=== PATIENT | female | born 1955 | race Caucasian/White ===

== ENCOUNTER 2019-06-22 22:36 | Emergency (ER) | payer MEDICAID, MEDICARE ==
[2019-06-22 22:42] VITALS: BP 165/111; PULSE 118
--- NOTE | 2019-06-23 01:12 | EDM.PDOCBH ---
ED HPI GENERAL MEDICAL PROBLEM - General Chief Complaint: Behavioral/Psych Stated Complaint: [facility] Time Seen by Provider: 06/23/19 01:11 - History of Present Illness INITIAL COMMENTS - FREE TEXT/NARRATIVE: 63-year-old female male brought in by EMS not feeling well. Patient was having chest tightness palpitations was sweaty and generally didn't feel good. Upon arrival to the emergency room she felt much better she was hypertensive and tachycardic with a pulse rate in the low 100s. At the time of my initial interview the patient denied any pain she did feel little anxious palpitations have resolved. Apparently she would not tolerate the monitoring equipment and demand it was taken off I did convince her to check her blood pressure again and put heart monitor on. - Related Data Allergies Allergy/AdvReac Type Severity Reaction Status Date / Time acetaminophen Allergy Cannot Verified 06/22/19 22:43 [From Tylenol-Codeine #3] Remember codeine Allergy Cannot Verified 06/22/19 22:43 [From Tylenol-Codeine #3] Remember morphine Allergy Other Verified 06/22/19 22:43 Home Meds: Home Meds Clonidine. 1 tab PO DAILY 09/01/16 [History] Cyclobenzaprine [Flexeril] 10 mg PO TID 09/01/16 [History] Disipromine. 1 tab PO DAILY 09/01/16 [History] Metformin. 1 tab PO BID 09/01/16 [History] Pregabalin [Lyrica] 1 tab PO BID 09/01/16 [History] Prozac. 1 tab PO DAILY 09/01/16 [History] ARIPiprazole [Abilify] 10 mg PO DAILY 06/22/19 [History] Alprazolam. 1 tab PO BEDTIME 06/22/19 [History] Potassium Chloride [Klor-Con 10] 10 meq PO Q12H #10 tab.er 06/23/19 [Rx] Past Medical History Respiratory History: Reports: COPD Musculoskeletal History: Reports: Fibromyalgia Psychiatric History: Reports: Anxiety, Depression, PTSD, Schizophrenia Endocrine/Metabolic History: Reports: Diabetes, Type II, Hypothyroidism Social & Family History - Tobacco Use Smoking Status *Q: Former Smoker Used Tobacco, but Quit: Yes Month/Year Tobacco Last Used: 2017 - Caffeine Use Caffeine Use: Reports: Coffee, Tea - Recreational Drug Use Recreational Drug Use: No ED ROS GENERAL - Review of Systems Review Of Systems: See Below Constitutional: Reports: No Symptoms HEENT: Reports: No Symptoms Respiratory: Reports: No Symptoms Cardiovascular: Reports: Chest Pain, Palpitations GI/Abdominal: Reports: No Symptoms : Reports: No Symptoms Musculoskeletal: Reports: No Symptoms Skin: Reports: No Symptoms Neurological: Reports: Other (Intermittent hand numbness). Denies: Confusion, Dizziness, Headache ED EXAM, BEHAVIORAL HEALTH - Physical Exam Exam: See Below Exam Limited By: No Limitations General Appearance: Alert, No Apparent Distress Eye Exam: Bilateral Eye: Normal Inspection Ears: Normal External Exam, Normal Canal, Hearing Grossly Normal, Normal TMs, Other (Him cerumen noted in the external canals) Nose: Normal Inspection, Normal Mucosa, No Blood Throat/Mouth: Normal Inspection, Normal Lips, Normal Teeth, Normal Gums, Normal Oropharynx, Normal Voice, No Airway Compromise Head: Atraumatic, Normocephalic Neck: Normal Inspection, Supple, Non-Tender, Full Range of Motion Respiratory/Chest: No Respiratory Distress, Lungs Clear, Normal Breath Sounds, No Accessory Muscle Use, Chest Non-Tender Cardiovascular: Normal Peripheral Pulses, Regular Rate, Rhythm, No Edema, No Gallop, No JVD, No Murmur, No Rub GI/Abdominal: Normal Bowel Sounds, Soft, Non-Tender, No Organomegaly, No Distention, No Abnormal Bruit, No Mass, Other (Obese) Back Exam: Normal Inspection. No: CVA Tenderness (L), CVA Tenderness (R) Neurological: Alert, Normal Cognition Psychiatric: Other (She is somewhat anxious). No: Suicidal Plan, Suicidal Thoughts, Auditory Hallucinations, Visual Hallucinations, Grandiose Thoughts, Pressured Speech Skin Exam: Warm, Dry, Intact COURSE, BEHAVIORAL HEALTH COMP - Course Vital Signs: Last Vital Signs Temp 36.2 C 06/22/19 22:40 Pulse 118 H 06/22/19 22:40 Resp 15 06/22/19 22:40 BP 165/111 H 06/22/19 22:40 Pulse Ox 91 L 06/22/19 22:40 Orders, Labs, Meds: Active Orders 24 hr Category Date Time Status EKG Documentation Completion [RC] STAT Care 06/23/19 01:29 Active MAGNESIUM [CHEM] Stat Lab 06/23/19 02:34 Ordered Laboratory Tests 06/23/19 06/23/19 Range/Units 01:50 01:50 WBC 5.91 (3.98-10.04) K/mm3 RBC 4.18 (3.98-5.22) M/mm3 Hgb 12.0 D (11.2-15.7) gm/dl Hct 37.5 (34.1-44.9) % MCV 89.7 (79.4-94.8) fl MCH 28.7 (25.6-32.2) pg MCHC 32.0 L (32.2-35.5) g/dl RDW Std Deviation 46.2 (36.4-46.3) fL Plt Count 142 L (182-369) K/mm3 MPV 11.0 (9.4-12.3) fl Neutrophils % (Manual) 75 H (40-60) % Band Neutrophils % 0 (0-10) % Lymphocytes % (Manual) 18 L (20-40) % Atypical Lymphs % 0 % Monocytes % (Manual) 5 (2-10) % Eosinophils % (Manual) 2 (0.7-5.8) % Basophils % (Manual) 0 L (0.1-1.2) Platelet Estimate Adequate Plt Morphology Comment Normal RBC Morph Comment Normal Sodium 141 (136-145) mEq/L Potassium 3.3 L (3.5-5.1) mEq/L Chloride 104 (98-107) mEq/L Carbon Dioxide 28 (21-32) mEq/L Anion Gap 12.3 (5-15) BUN 16 (7-18) mg/dL Creatinine 0.8 (0.55-1.02) mg/dL Est Cr Clr Drug Dosing 66.45 mL/min Estimated GFR (MDRD) > 60 (>60) mL/min BUN/Creatinine Ratio 20.0 H (14-18) Glucose 167 H (80-115) mg/dL Calcium 9.2 (8.5-10.1) mg/dL Total Bilirubin 0.4 (0.2-1.0) mg/dL AST 30 (15-37) U/L ALT 40 (14-59) U/L Alkaline Phosphatase 128 H (46-116) U/L Troponin I < 0.017 (0.00-0.056) ng/mL Total Protein 7.8 (6.4-8.2) g/dl Albumin 3.0 L (3.4-5.0) g/dl Globulin 4.8 gm/dL Albumin/Globulin Ratio 0.6 L (1-2) Medications Discontinued Medications Generic Name Dose Route Start Last Admin Trade Name Kenzie PRBenjamín Reason Stop Dose Admin Lorazepam 1 mg 06/23/19 02:35 Ativan PO 06/23/19 02:36 ONETIME ONE Medical Clearance: 06/23/19 03:00 I tried to get the patient to take some Ativan to calm her down and she agreed to it initially. Then I recommended she take some oral potassium as her potassium was somewhat low. Her blood sugar is high troponin still pending EKG shows a sinus tachycardia rate 103 and then she decided she didn't want to take the Ativan but would take potassium is still recommended she take the Ativan patient thought about it for a little bit and then she decided she just wanted to leave I discussed bryson with her that I'm worried about her fast heart rate and have no good explanation for her symptoms other than the anxiety that she has enough risk factors that some more ominous intentional medical problems should be excluded if possible and she still wanted to go home I did discharge her with a prescription for potassium she was willing to take that. Departure - Departure Time of Disposition: 02:44 Disposition: Against Medical Advice 07 Clinical Impression: Anxiety, Tachycardia, Hypokalemia - Discharge Information Prescriptions: Potassium Chloride [Klor-Con 10] 10 meq PO Q12H #10 tab.er Instructions: Generalized Anxiety Disorder, Adult, Hypokalemia, Sinus Tachycardia Referrals: PCP,None [Primary Care Provider] - Forms: ED Department Discharge Additional Instructions: Return to the emergency room with any questions problems worsening symptoms Follow-up with her regular provider early this next week you can go to the Hospital clinic [phone] - My Orders Last 24 Hours: My Active Orders 06/23/19 01:29 EKG Documentation Completion [RC] STAT 06/23/19 02:34 MAGNESIUM [CHEM] Stat - Assessment/Plan Last 24 Hours: My Active Orders 06/23/19 01:29 EKG Documentation Completion [RC] STAT 06/23/19 02:34 MAGNESIUM [CHEM] Stat
[2019-06-23] MEDS ORDERED: LORazepam 1 MG Tab PO ONE (02:35)
== END 2019-06-23 03:00 | disposition left against medical advice (07) ==
LOC: JD.ED 22:36
DX: F41.9 Anxiety disorder, unspecified (principal); R00.0 Tachycardia, unspecified; E87.6 Hypokalemia; J44.9 Chronic obstructive pulmonary disease, unspecified; E11.9 Type 2 diabetes mellitus without complications; F32.9 Major depressive disorder, single episode, unspecified; Z88.6 Allergy status to analgesic agent; Z88.5 Allergy status to narcotic agent; Z79.84 Long term (current) use of oral hypoglycemic drugs; Z87.891 Personal history of nicotine dependence; Z79.899 Other long term (current) drug therapy
CPT/HCPCS: 36415; 80053; 83735; 84484; 85007; 85027; 93005; 99284-25

== ENCOUNTER 2019-06-28 10:19 | Emergency (ER) | payer MEDICARE ==
[2019-06-28 11:23] VITALS: BP 151/104; PULSE 100
[2019-06-28] MEDS ORDERED: FLU Vacc QS2019-20(6MOS+)/PF 60 MCG/0.5 ML SYRINGE IM ONE (12:00)
--- NOTE | 2019-06-28 16:00 | CR ---
Chest: Two views of the chest are obtained. Comparison: Prior chest CT study of 09/01/16 is available. Findings: Heart size and mediastinum are normal. Lungs show minimal linear densities which is most likely due to subsegmental atelectasis. Lungs otherwise are clear. Minimal scoliosis is noted within the spine with slight scattered degenerative change. Impression: 1. Findings as described above which is believed to be incidental. 2. Nothing acute is suspected. Diagnostic code #2
--- NOTE | 2019-06-28 16:06 | EDM.PDOCBH ---
ED HPI GENERAL MEDICAL PROBLEM - General Chief Complaint: Behavioral/Psych Stated Complaint: LOW O2 CAUSING MENTAL IDEATIONS Time Seen by Provider: 06/28/19 11:09 Source of Information: Reports: Patient, Provider History Limitations: Reports: No Limitations - History of Present Illness INITIAL COMMENTS - FREE TEXT/NARRATIVE: The patient presents from [facility] for hallucinations and paranoia. She also had some shortness of breath. She recently moved here from [place]. She has a history of anxiety, depression, PTSD and schizophrenia. She is on clonidine, alprazolam, abilify, lyrican and prozac. A few months ago she was in [facility] for psychosis. Abilify was added to her medications. She currently is paranoid that someone is going to kill her. She fells like they are going to set fire to her apartment. She climbed out of her window and hurt her head last week. She is also hearing voices that are threatening and seeing people that are going to hurt her. She has trouble remembering to take her meds. She has a friend that is trying to help her. She went to [facility] to see if she can get some help and possibly get into a crisis bed. They had concerns about her medical problems. They could not take her because she is on insulin and they have no one to give it to her. The patient says she is short of breath at times. She has no chest pain, abdominal pain, nausea, vomiting, fever or chills. Onset: Gradual Duration: Week(s): Severity: Moderate Improves with: Reports: None Worsens with: Reports: None Associated Symptoms: Reports: No Other Symptoms - Related Data Allergies Allergy/AdvReac Type Severity Reaction Status Date / Time acetaminophen Allergy Cannot Verified 06/28/19 11:12 [From Tylenol-Codeine #3] Remember codeine Allergy Cannot Verified 06/28/19 11:12 [From Tylenol-Codeine #3] Remember morphine Allergy Headache Verified 06/28/19 11:12 Home Meds: Home Meds Clonidine. 0.1 mg PO BID 09/01/16 [History] Cyclobenzaprine [Flexeril] 10 mg PO TID 09/01/16 [History] Metformin. 1,000 mg PO BID 09/01/16 [History] Pregabalin [Lyrica] 300 mg PO BID 09/01/16 [History] Prozac. 80 mg PO DAILY 09/01/16 [History] ARIPiprazole [Abilify] 10 mg PO DAILY 06/22/19 [History] Alprazolam. 0.25 mg PO BID PRN 06/22/19 [History] Potassium Chloride [Klor-Con 10] 10 meq PO Q12H #10 tab.er 06/23/19 [Rx] Dulaglutide [Trulicity] 1.5 mg SQ TU 06/28/19 [History] Insulin Glarg,Human.Rec.Analog [Lantus Solostar] 30 unit SQ DAILY 06/28/19 [ History] Past Medical History HEENT History: Reports: Impaired Vision Other HEENT History: wears eyeglasses, has no teeth, frequent abscesses to "nubs " of teeth that are still in place. Cardiovascular History: Reports: High Cholesterol Respiratory History: Reports: COPD Genitourinary History: Reports: Pyelonephritis, Urinary Incontinence, UTI, Recurrent [employer] History: Reports: Musculoskeletal History: Reports: Fracture, Fibromyalgia Neurological History: Reports: Seizure Psychiatric History: Reports: Anxiety, Depression, PTSD, Schizophrenia Endocrine/Metabolic History: Reports: Diabetes, Type II, Hypothyroidism - Infectious Disease History Infectious Disease History: Reports: Chicken Pox, Measles, Mumps, Scarlet Fever - Past Surgical History GI Surgical History: Reports: Appendectomy, Cholecystectomy Musculoskeletal Surgical History: Reports: ORIF Social & Family History - Tobacco Use Smoking Status *Q: Former Smoker Used Tobacco, but Quit: Yes Month/Year Tobacco Last Used: Apr 2018 - Caffeine Use Caffeine Use: Reports: Coffee, Tea - Recreational Drug Use Recreational Drug Use: No ED ROS GENERAL - Review of Systems Review Of Systems: See Below Constitutional: Reports: No Symptoms HEENT: Reports: No Symptoms Respiratory: Reports: Shortness of Breath. Denies: Cough Cardiovascular: Reports: No Symptoms Endocrine: Reports: No Symptoms GI/Abdominal: Reports: No Symptoms : Reports: No Symptoms Musculoskeletal: Reports: No Symptoms Neurological: Reports: No Symptoms Psychiatric: Reports: Hallucinations ED EXAM, BEHAVIORAL HEALTH - Physical Exam Exam: See Below Exam Limited By: No Limitations General Appearance: Alert, No Apparent Distress Ears: Normal External Exam Nose: Normal Inspection Head: Atraumatic, Normocephalic Neck: Normal Inspection Respiratory/Chest: No Respiratory Distress, Lungs Clear, Normal Breath Sounds Cardiovascular: Regular Rate, Rhythm, No Edema, No Murmur GI/Abdominal: Soft, Non-Tender, No Organomegaly, No Mass Back Exam: Normal Inspection EKG INTERPRETATION EKG Date: 06/28/19 Time: 12:31 Rhythm: NSR Rate (Beats/Min): 94 [place]: Normal P-Wave: Present QRS: Normal ST-T: Normal QT: Normal COURSE, BEHAVIORAL HEALTH COMP - Course Vital Signs: Last Vital Signs Temp 97.8 F 06/28/19 11:05 Pulse 100 06/28/19 11:05 Resp 20 06/28/19 11:05 BP 151/104 H 06/28/19 11:05 Pulse Ox 96 06/28/19 11:05 Orders, Labs, Meds: Active Orders 24 hr Category Date Time Status Cardiac Monitoring [RC] . DIRECTED Care 06/28/19 12:10 Active EKG Documentation Completion [RC] STAT Care 06/28/19 12:10 Active Influenza Vaccine Charge [RC] .DISCHARGE Care 06/28/19 11:42 Active Laboratory Tests 06/28/19 06/28/19 06/28/19 Range/Units 12:28 12:28 13:30 WBC 5.13 (3.98-10.04) K/mm3 RBC 4.76 (3.98-5.22) M/mm3 Hgb 13.8 D (11.2-15.7) gm/dl Hct 42.0 (34.1-44.9) % MCV 88.2 (79.4-94.8) fl MCH 29.0 (25.6-32.2) pg MCHC 32.9 (32.2-35.5) g/dl RDW Std Deviation 47.4 H (36.4-46.3) fL Plt Count 193 (182-369) K/mm3 MPV 10.5 (9.4-12.3) fl Neut % (Auto) 62.2 (34.0-71.1) % Lymph % (Auto) 25.3 (19.3-51.7) % [place] % (Auto) 9.2 (4.7-12.5) % Eos % (Auto) 2.9 (0.7-5.8) Baso % (Auto) 0.4 (0.1-1.2) % Neut # (Auto) 3.19 (1.56-6.13) K/mm3 Lymph # (Auto) 1.30 (1.18-3.74) K/mm3 [place] # (Auto) 0.47 H (0.24-0.36) K/mm3 Eos # (Auto) 0.15 (0.04-0.36) K/mm3 Baso # (Auto) 0.02 (0.01-0.08) K/mm3 Sodium 144 (136-145) mEq/L Potassium 3.0 L (3.5-5.1) mEq/L Chloride 104 (98-107) mEq/L Carbon Dioxide 29 (21-32) mEq/L Anion Gap 14.0 (5-15) BUN 14 (7-18) mg/dL Creatinine 0.9 (0.55-1.02) mg/dL Est Cr Clr Drug Dosing 59.07 mL/min Estimated GFR (MDRD) > 60 (>60) mL/min BUN/Creatinine Ratio 15.6 (14-18) Glucose 130 H (80-115) mg/dL Calcium 9.5 (8.5-10.1) mg/dL Total Bilirubin 0.5 (0.2-1.0) mg/dL AST 31 (15-37) U/L ALT 45 (14-59) U/L Alkaline Phosphatase 112 (46-116) U/L Troponin I < 0.017 (0.00-0.056) ng/mL Total Protein 8.6 H (6.4-8.2) g/dl Albumin 3.4 (3.4-5.0) g/dl Globulin 5.2 gm/dL Albumin/Globulin Ratio 0.7 L (1-2) TSH 3rd Generation 2.792 (0.358-3.74) uIU/mL Urine Opiates Screen Negative (OFTUSX=618) Ur Buprenorphine Scrn Negative (CUTOFF=10) Ur Oxycodone Screen Presumptive positive H (PFJ1PH=675) Urine Methadone Screen Negative (QSVHBW=037) Ur Propoxyphene Screen Negative (LEEGAO=270) Ur Barbiturates Screen Negative (TBVLEU=773) Ur Tricyclics Screen Presumptive positive H (FNVCUZ=734) Ur Phencyclidine Scrn Negative (CUTOFF=25) Ur Amphetamine Screen Negative (VXJDYX=778) U Methamphetamines Scrn Negative (INEDGQ=859) U Benzodiazepines Scrn Presumptive positive H (JBIBYV=563) U Cocaine Metab Screen Negative (PNDSSN=674) U Marijuana (THC) Screen Negative (CUTOFF=50) Ethyl Alcohol 0.00 (0.00) gm% Medications Discontinued Medications Generic Name Dose Route Start Last Admin Trade Name Kenzie PRN Reason Stop Dose Admin Influenza Virus Vaccine 60 mcg 06/28/19 12:00 Fluzone Quad Syringe IM 06/28/19 12:01 .ONCE ONE Re-Assessment/Re-Exam: I ordered an EKG, CXR and labs. Her EKG shows a NSR with no acute changes. Her CXR looks good. Her CBC looks good. Her K was 3. Her troponin is negative. Her TSH is negative. Her drug screen is positive for oxycodone, tricyclics and benzos. Her alcohol is negative. I called [facility] and I feel she is medically clear but they will not take her. I had Basia our social services designee come talk to her and she agrees the patient may need some inpatient help. I have called [facility] and I am waiting for Dr Cooper to call me back. Dr Cooper did call me back and he accepted the patient. I will have the mine car dispatcher transfer. Departure - Departure Time of Disposition: 18:40 Disposition: DC/Tfer to Psych Hosp/Unit 65 Condition: Fair Clinical Impression: Hallucinations Schizophrenia Qualifiers: Schizophrenia type: other Qualified Code(s): F20.89 - Other schizophrenia; F20.8 - Other schizophrenia - Discharge Information Referrals: PCP,None [Primary Care Provider] - Forms: ED Department Discharge - My Orders Last 24 Hours: My Active Orders 06/28/19 11:42 Influenza Vaccine Charge [RC] .DISCHARGE 06/28/19 12:10 Cardiac Monitoring [RC] . DIRECTED EKG Documentation Completion [RC] STAT - Assessment/Plan Last 24 Hours: My Active Orders 06/28/19 11:42 Influenza Vaccine Charge [RC] .DISCHARGE 06/28/19 12:10 Cardiac Monitoring [RC] . DIRECTED EKG Documentation Completion [RC] STAT
== END 2019-06-28 19:50 ==
LOC: JD.ED 10:19
DX: F20.89 Other schizophrenia (principal); F32.9 Major depressive disorder, single episode, unspecified; E11.9 Type 2 diabetes mellitus without complications; J44.9 Chronic obstructive pulmonary disease, unspecified; G40.909 Epilepsy, unspecified, not intractable, without status epilepticus; Z79.4 Long term (current) use of insulin; Z88.6 Allergy status to analgesic agent; Z88.5 Allergy status to narcotic agent; Z79.899 Other long term (current) drug therapy
CPT/HCPCS: 36415; 71046; 80053; 80306; 84443; 84484; 85025; 90686; 93005; 99285; G0008; G0480; 93010; 99284

== ENCOUNTER 2019-09-10 11:49 | Inpatient (IN) | payer MEDICARE ==
--- NOTE | 2019-09-10 12:56 | EDM.PDOC ---
ED HPI GENERAL MEDICAL PROBLEM - General Chief Complaint: Gastrointestinal Problem Stated Complaint: [facility] Time Seen by Provider: 09/10/19 12:49 Source of Information: Reports: Patient History Limitations: Reports: No Limitations - History of Present Illness INITIAL COMMENTS - FREE TEXT/NARRATIVE: 64-year-old female who is a known type II diabetic presents to the ED generally feeling very poor for the last 10 days. She recently relocated to [facility] and has no primary care physician. Her sugars used to be controlled with Trulicity once weekly and using basal dose of insulin ( Lantus solostar) 30 units once daily daily and metformin 1000 mg twice a day. Since blood sugars at home have been running much higher than normal. She presents with severe polyuria and polydipsia. Weight herself and she is morbidly obese. She can barely walk or get to the bathroom even with the aid of her daughter who does most of her care. Shar she fell recently and has a mild contusion to her occipital scalp. She also complains that her right arm doesn't seem to work as well as it should. She doesn't walk without the aid of a walker. Complains of feeling very weak dizzy nauseated and can't eat. Onset: Gradual Onset Date: 09/05/19 (Has been sick apparently for a couple of months but worse the last week. In planning of diffuse abdominal pain) Duration: Week(s):, Getting Worse Location: Reports: Generalized (MRI sense of illness I suspect primarily due to uncontrolled type 2 diabetes.) Quality: Reports: Other (Nausea weakness causing falls at home.) Severity: Severe Improves with: Reports: None Worsens with: Reports: None Context: Reports: Other. Denies: Activity, Exercise, Lifting, Sick Contact, Trauma Associated Symptoms: Reports: Loss of Appetite, Malaise, Nausea/Vomiting, Shortness of Breath, Weakness (Severe generalized weakness and can barely walk on her own volition. She is also hypoxic on room air.). Denies: Confusion ( Artery is providing as much care she can for her at home but is failing at this time.), Chest Pain, Cough, cough w sputum, Diaphoresis, Fever/Chills, Headaches , Rash, Seizure, Syncope Treatments RELATIONS COORDINATOR: Reports: Other (see below) Left Abdominal Pain Score (Numeric/FACES): 10 - Related Data Allergies Allergy/AdvReac Type Severity Reaction Status Date / Time acetaminophen Allergy Cannot Verified 06/28/19 11:12 [From Tylenol-Codeine #3] Remember codeine Allergy Cannot Verified 06/28/19 11:12 [From Tylenol-Codeine #3] Remember morphine AdvReac Headache Verified 09/10/19 14:43 Home Meds: Home Meds Clonidine. 0.1 mg PO BID 09/01/16 [History] Cyclobenzaprine [Flexeril] 10 mg PO TID PRN 09/01/16 [History] Metformin. 1,000 mg PO BID 09/01/16 [History] Pregabalin [Lyrica] 300 mg PO BID 09/01/16 [History] Prozac. 80 mg PO DAILY 09/01/16 [History] ARIPiprazole [Abilify] 40 mg PO DAILY 06/22/19 [History] Alprazolam. 0.25 mg PO BID PRN 06/22/19 [History] Dulaglutide [Trulicity] 1.5 mg SQ TU 06/28/19 [History] Paliperidone [Paliperidone ER] 6 mg PO DAILY 09/10/19 [History] Rosuvastatin Calcium 20 mg PO BEDTIME 09/10/19 [History] hydrOXYzine HCL [hydrOXYzine] 50 mg PO BEDTIME 09/10/19 [History] Past Medical History HEENT History: Reports: Impaired Vision Other HEENT History: wears eyeglasses, has no teeth, frequent abscesses to "nubs " of teeth that are still in place. 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: Musculoskeletal History: Reports: Fracture, Fibromyalgia Neurological History: Reports: Seizure Psychiatric History: Reports: Anxiety, Depression, PTSD, Schizophrenia Endocrine/Metabolic History: Reports: Diabetes, Type II, Hypothyroidism - Infectious Disease History Infectious Disease History: Reports: Chicken Pox, Hepatitis C, Measles, Mumps, Scarlet Fever - Past Surgical History GI Surgical History: Reports: Appendectomy, Cholecystectomy Musculoskeletal Surgical History: Reports: ORIF Social & Family History - Tobacco Use Smoking Status *Q: Never Smoker Second Hand Smoke Exposure: No - Caffeine Use Caffeine Use: Reports: Coffee, Soda - Recreational Drug Use Recreational Drug Use: No - Living Situation & Occupation Living situation: Reports: Single Occupation: Disabled ED ROS GENERAL - Review of Systems Review Of Systems: See Below Constitutional: Reports: Malaise, Weakness, Fatigue, Decreased Appetite. Denies : Fever, Chills HEENT: Denies: Glasses Respiratory: Reports: Shortness of Breath. Denies: Wheezing, Pleuritic Chest Pain, Cough, Sputum Cardiovascular: Reports: Blood Pressure Problem, Dyspnea on Exertion, Edema, Lightheadedness. Denies: Chest Pain, Claudication, Orthopnea Endocrine: Reports: Fatigue, High Glucose GI/Abdominal: Reports: Decreased Appetite, Nausea, Vomiting (Vomited once bilious material last night) : Reports: Frequency, Incontinence (Continent of urine at times mostly stress- induced component of urgency.) Musculoskeletal: Reports: Joint Pain (Sips low back and neck and shoulders at times) Skin: Reports: Other (Patient has intertrigo primarily in the inguinal and lower abdomen under pannus. She also has perineal inflammation from inability to clean herself properly. His excoriations of the perineum and perianal tissues.) Neurological: Reports: Difficulty Walking (Use a walker to get along but can't walk), Change in Speech ( at this point time.), Other (Complains of difficulty walking and that her right arm is not working quite as well as it should. Of note she is right hand dominant.) Hematologic/Lymphatic: Reports: No Symptoms Immunologic: Reports: No Symptoms ED EXAM, GI/ABD - Physical Exam Exam: See Below Exam Limited By: Altered Mental Status ( is mildly confused and can't answer questions appropriately. She has a friend with her who is providing most of the history.) General Appearance: Mild Distress, Obese, Other (Confused. She is disoriented to person place and time.) Eyes: Bilateral: Normal Appearance Throat/Mouth: Other (Doesn't tongue is extremely dry and shrunken. Patient has ketones on her breath.). No: Normal Teeth, Normal Gums Head: Other Neck: Normal Inspection (She is complaining of pain on the vertex of her occipital scalp but I cannot palpate any deformities or scalp hematomas. Apparently she fell and injured her head about a week ago.), Limited Range of Motion. No: Carotid Bruit, Lymphadenopathy (L) (As a cold neck with limited range of motion.), Lymphadenopathy (R) Respiratory/Chest: No Accessory Muscle Use, Respiratory Distress (Mild tachypnea at rest presumably due to ketosis.), Decreased Breath Sounds ( Diminished breath sounds to the lower lung sarmiento due to splinting respirations and shallow respirations.). No: Rales, Rhonchi, Wheezing Cardiovascular: No Gallop (Sinus tachycardia at 125 at the bedside.), No JVD, No Murmur, No Rub, Tachycardia. No: Normal Peripheral Pulses (No pulses palpable in her feet.), No Edema GI/Abdominal Exam: Normal Bowel Sounds, Soft, Non-Tender, No Organomegaly, No Mass, Pelvis Stable, Other (Morbidly obese. Abdominal girth limits ability to palpate solid organs. She has a long linear open cholecystectomy scar right upper quadrant of the abdomen.) (Female) Exam: Other (Has excoriations of the perianal tissues and perineum with likely candidiasis in this area. All bladder are also somewhat involved.) Rectal (Female) Exam: Other (Area anal inflamed inflammation due to excoriations of the tissue from likely stool.) Back Exam: Decreased Range of Motion. No: CVA Tenderness (L), Muscle Spasm, Paraspinal Tenderness Extremities: Pedal Edema (1+ pitting edema around the ankles and dorsal feet.) Neurological: Oriented (Oriented to person but not to place and time.), Sensory/ Motor Deficit (She is complaining of some numbness and tingling and poor ability to control her right upper extremity. States it's week.). No: Alert, CN II-XII Intact, Normal Cognition, Normal Gait Psychiatric: Flat Affect Skin Exam: Warm, Dry, Other (She has intertrigo primarily in the undersurface of her abdominal pannus in both groins and suprapubic area. This is secondary to candidiasis. Similarly there is perianal and nuchal cleft excoriations with white discharge likely candidiasis as well.) EKG INTERPRETATION EKG Date: 09/10/19 Time: 13:25 Rhythm: Other Rate (Beats/Min): 123 Winfred: LAD-Left Winfred Deviation P-Wave: Enlarged (-21 consider left atrial hypertrophy) QRS: Other (There is a Q-wave in V1. There is diffuse poor R-wave progression throughout all of the precordial leads with decreased voltage in both limb and precordial leads. Rule out ischemia in the anteroseptal wall.) ST-T: Other (Wondering baseline in the limb leads extend on amenable to interpretation of the ST segments.) QT: Prolonged EKG Interpretation Comments: Abnormal ECG Course - Vital Signs Last Recorded V/S: Last Vital Signs Temp 36.4 C 09/10/19 11:50 Pulse 122 H 09/10/19 11:50 Resp 20 09/10/19 11:50 BP 137/81 09/10/19 11:50 Pulse Ox 93 L 09/10/19 11:50 - Orders/Labs/Meds Orders: Active Orders 24 hr Category Date Time Status Blood Glucose Check, Bedside [RC] ONETIME Care 09/10/19 12:58 Active EKG Documentation Completion [RC] STAT Care 09/10/19 12:57 Active Insert Thakur Catheter [Insert Urinary Catheter] [OM.PC] Care 09/10/19 12:30 Ordered Q24H Urinary Catheter Assessment [RC] ASDIRECTED Care 09/10/19 12:30 Active CULTURE BLOOD [BC] Stat Lab 09/10/19 12:58 Ordered CULTURE BLOOD [BC] Stat Lab 09/10/19 12:58 Ordered Insulin Regular, Human [HumuLIN R] 100 unit Med 09/10/19 14:37 Active Sodium Chloride 0.9% [Normal Saline] 99 ml IV TITRATE Blood Culture x2 Reflex Set [OM.PC] Stat Oth 09/10/19 12:58 Ordered Medication Orders Albuterol/Ipratropium (Duoneb 3.0-0.5 Mg/3 Ml) 3 ml NEB Q4H PRN PRN Reason: Shortness Of Breath/wheezing Heparin Sodium (Porcine) (Heparin Sodium) 5,000 units SUBCUT Q8H FARHEEN Hydromorphone HCl (Dilaudid) 0.5 mg IVPUSH Q2H PRN PRN Reason: Pain (severe 7-10) Insulin Human Regular 100 unit (/ Sodium Chloride) 100 mls @ 10 mls/hr IV TITRATE FARHEEN; Protocol Last Admin: 09/10/19 14:56 Dose: 6 unit/hr, 6 mls/hr Potassium Chloride 10 meq/ (Premix) 100 mls @ 100 mls/hr IV Q1H FARHEEN Stop: 09/10/19 18:14 Last Admin: 09/10/19 17:15 Dose: 100 mls/hr Infusion: 09/10/19 16:35 Dose: 100 mls/hr Admin: 09/10/19 15:35 Dose: 100 mls/hr Lactated Ringer's (Ringers, Lactated) 1,000 mls @ 125 mls/hr IV ASDIRECTED [facility] Promethazine HCl 6.25 mg/ (Sodium Chloride) 50.25 mls @ 100 mls/hr IV Q6H PRN PRN Reason: Nausea/Vomiting Ibuprofen (Motrin) 600 mg PO Q6H PRN PRN Reason: Pain (moderate 4-6) Ondansetron HCl (Zofran) 4 mg IV Q6H PRN PRN Reason: Nausea/Vomiting Pantoprazole Sodium (Protonix Iv) 40 mg IV Q12H [facility] Labs: Laboratory Tests 09/10/19 09/10/19 09/10/19 Range/Units 12:40 12:40 12:41 WBC 14.86 H (3.98-10.04) K/mm3 RBC 5.92 H (3.98-5.22) M/mm3 Hgb 16.4 H D (11.2-15.7) gm/dl Hct 49.6 H (34.1-44.9) % MCV 83.8 D (79.4-94.8) fl MCH 27.7 (25.6-32.2) pg MCHC 33.1 (32.2-35.5) g/dl RDW Std Deviation 43.9 (36.4-46.3) fL Plt Count 308 D (182-369) K/mm3 MPV 13.2 H (9.4-12.3) fl Neut % (Auto) 84.6 H (34.0-71.1) % Lymph % (Auto) 7.9 L (19.3-51.7) % Vigo % (Auto) 7.2 (4.7-12.5) % Eos % (Auto) 0 L (0.7-5.8) Baso % (Auto) 0.2 (0.1-1.2) % Neut # (Auto) 12.57 H (1.56-6.13) K/mm3 Lymph # (Auto) 1.17 L (1.18-3.74) K/mm3 Vigo # (Auto) 1.07 H (0.24-0.36) K/mm3 Eos # (Auto) 0.00 L (0.04-0.36) K/mm3 Baso # (Auto) 0.03 (0.01-0.08) K/mm3 Neutrophils % (Manual) (40-60) % Band Neutrophils % (0-10) % Lymphocytes % (Manual) (20-40) % Atypical Lymphs % % Monocytes % (Manual) (2-10) % Eosinophils % (Manual) (0.7-5.8) % Basophils % (Manual) (0.1-1.2) Manual Slide Review Abnormal smear Platelet Estimate Anisocytosis RBC Morph Comment PT (9.7-12.0) SECONDS INR Puncture Site ABG pH (7.35-7.45) ABG pCO2 (35.0-45.0) mmHg ABG HCO3 (22.0-26.0) meq/L ABG O2 Saturation (96.0-97.0) % ABG Base Excess (-2-2.0) Kamron Test O2 Delivery Device FiO2 (21.00-100.00) % Sodium 145 (136-145) mEq/L Potassium 3.8 (3.5-5.1) mEq/L Chloride 95 L (98-107) mEq/L Carbon Dioxide 22 (21-32) mEq/L Anion Gap 31.8 H (5-15) BUN 28 H (7-18) mg/dL Creatinine 1.5 H (0.55-1.02) mg/dL Est Cr Clr Drug Dosing 34.99 mL/min Estimated GFR (MDRD) 35 (>60) mL/min BUN/Creatinine Ratio 18.7 H (14-18) Glucose 677 H* (80-115) mg/dL Hemoglobin A1c (4.50-6.20) % Serum Osmolality (280-300) mosm/kg Lactic Acid (0.4-2.0) mmol/L Calcium 9.5 (8.5-10.1) mg/dL Phosphorus (2.6-4.7) mg/dL Magnesium (1.8-2.4) mg/dl Total Bilirubin 1.0 (0.2-1.0) mg/dL AST 60 H (15-37) U/L ALT 70 H (14-59) U/L Alkaline Phosphatase 257 H (46-116) U/L Troponin I (0.00-0.056) ng/mL C-Reactive Protein (<1.0) mg/dL NT-Pro-B Natriuret Pep 170 H (0-125) pg/mL Total Protein 8.5 H (6.4-8.2) g/dl Albumin 3.1 L (3.4-5.0) g/dl Globulin 5.4 gm/dL Albumin/Globulin Ratio 0.6 L (1-2) TSH 3rd Generation (0.358-3.74) uIU/mL Urine Color (Yellow) Urine Appearance (Clear) Urine pH (5.0-8.0) Ur Specific Chaplin (1.005-1.030) Urine Protein (Negative) Urine Glucose (UA) (Negative) Urine Ketones (Negative) Urine Occult Blood (Negative) Urine Nitrite (Negative) Urine Bilirubin (Negative) Urine Urobilinogen (0.2-1.0) Ur Leukocyte Esterase (Negative) Urine RBC (0-5) /hpf Urine WBC (0-5) /hpf Ur Squamous Epith Cells (0-5) /hpf Urine Bacteria (FEW) /hpf Hyaline Casts (0-5) /lpf Urine Mucus (FEW) /hpf Ketones (0.0-0.3) mM 09/10/19 09/10/19 09/10/19 Range/Units 12:50 13:01 14:10 WBC 15.38 H (3.98-10.04) K/mm3 RBC 5.94 H (3.98-5.22) M/mm3 Hgb 16.6 H (11.2-15.7) gm/dl Hct 49.9 H (34.1-44.9) % MCV 84.0 (79.4-94.8) fl MCH 27.9 (25.6-32.2) pg MCHC 33.3 (32.2-35.5) g/dl RDW Std Deviation 44.4 (36.4-46.3) fL Plt Count 228 D (182-369) K/mm3 MPV 12.7 H (9.4-12.3) fl Neut % (Auto) (34.0-71.1) % Lymph % (Auto) (19.3-51.7) % Vigo % (Auto) (4.7-12.5) % Eos % (Auto) (0.7-5.8) Baso % (Auto) (0.1-1.2) % Neut # (Auto) (1.56-6.13) K/mm3 Lymph # (Auto) (1.18-3.74) K/mm3 Vigo # (Auto) (0.24-0.36) K/mm3 Eos # (Auto) (0.04-0.36) K/mm3 Baso # (Auto) (0.01-0.08) K/mm3 Neutrophils % (Manual) 84 H (40-60) % Band Neutrophils % 0 (0-10) % Lymphocytes % (Manual) 8 L (20-40) % Atypical Lymphs % 0 % Monocytes % (Manual) 7 (2-10) % Eosinophils % (Manual) 1 (0.7-5.8) % Basophils % (Manual) 0 L (0.1-1.2) Manual Slide Review Platelet Estimate Adequate Anisocytosis 1+ slight RBC Morph Comment Not Reportable PT (9.7-12.0) SECONDS INR Puncture Site Rt radial ABG pH 7.40 (7.35-7.45) ABG pCO2 28.5 L (35.0-45.0) mmHg ABG HCO3 17.3 L (22.0-26.0) meq/L ABG O2 Saturation 94.4 L (96.0-97.0) % ABG Base Excess -5.7 L (-2-2.0) Kamron Test Positive O2 Delivery Device Room air FiO2 0.00 L (21.00-100.00) % Sodium (136-145) mEq/L Potassium (3.5-5.1) mEq/L Chloride (98-107) mEq/L Carbon Dioxide (21-32) mEq/L Anion Gap (5-15) BUN (7-18) mg/dL Creatinine (0.55-1.02) mg/dL Est Cr Clr Drug Dosing mL/min Estimated GFR (MDRD) (>60) mL/min BUN/Creatinine Ratio (14-18) Glucose (80-115) mg/dL Hemoglobin A1c (4.50-6.20) % Serum Osmolality (280-300) mosm/kg Lactic Acid (0.4-2.0) mmol/L Calcium (8.5-10.1) mg/dL Phosphorus (2.6-4.7) mg/dL Magnesium (1.8-2.4) mg/dl Total Bilirubin (0.2-1.0) mg/dL AST (15-37) U/L ALT (14-59) U/L Alkaline Phosphatase (46-116) U/L Troponin I (0.00-0.056) ng/mL C-Reactive Protein (<1.0) mg/dL NT-Pro-B Natriuret Pep (0-125) pg/mL Total Protein (6.4-8.2) g/dl Albumin (3.4-5.0) g/dl Globulin gm/dL Albumin/Globulin Ratio (1-2) TSH 3rd Generation (0.358-3.74) uIU/mL Urine Color Yellow (Yellow) Urine Appearance Clear (Clear) Urine pH 6.0 (5.0-8.0) Ur Specific Chaplin 1.020 (1.005-1.030) Urine Protein 1+ H (Negative) Urine Glucose (UA) 2+ H (Negative) Urine Ketones 2+ H (Negative) Urine Occult Blood 2+ H (Negative) Urine Nitrite Negative (Negative) Urine Bilirubin 1+ H (Negative) Urine Urobilinogen 0.2 (0.2-1.0) Ur Leukocyte Esterase Negative (Negative) Urine RBC 10-20 H (0-5) /hpf Urine WBC 0-5 (0-5) /hpf Ur Squamous Epith Cells 0-5 (0-5) /hpf Urine Bacteria Many H (FEW) /hpf Hyaline Casts 0-5 (0-5) /lpf Urine Mucus Few (FEW) /hpf Ketones (0.0-0.3) mM 09/10/19 09/10/19 09/10/19 Range/Units 14:10 14:10 14:10 WBC (3.98-10.04) K/mm3 RBC (3.98-5.22) M/mm3 Hgb (11.2-15.7) gm/dl Hct (34.1-44.9) % MCV (79.4-94.8) fl MCH (25.6-32.2) pg MCHC (32.2-35.5) g/dl RDW Std Deviation (36.4-46.3) fL Plt Count (182-369) K/mm3 MPV (9.4-12.3) fl Neut % (Auto) (34.0-71.1) % Lymph % (Auto) (19.3-51.7) % Vigo % (Auto) (4.7-12.5) % Eos % (Auto) (0.7-5.8) Baso % (Auto) (0.1-1.2) % Neut # (Auto) (1.56-6.13) K/mm3 Lymph # (Auto) (1.18-3.74) K/mm3 Vigo # (Auto) (0.24-0.36) K/mm3 Eos # (Auto) (0.04-0.36) K/mm3 Baso # (Auto) (0.01-0.08) K/mm3 Neutrophils % (Manual) (40-60) % Band Neutrophils % (0-10) % Lymphocytes % (Manual) (20-40) % Atypical Lymphs % % Monocytes % (Manual) (2-10) % Eosinophils % (Manual) (0.7-5.8) % Basophils % (Manual) (0.1-1.2) Manual Slide Review Platelet Estimate Anisocytosis RBC Morph Comment PT 13.9 H (9.7-12.0) SECONDS INR 1.29 Puncture Site ABG pH (7.35-7.45) ABG pCO2 (35.0-45.0) mmHg ABG HCO3 (22.0-26.0) meq/L ABG O2 Saturation (96.0-97.0) % ABG Base Excess (-2-2.0) Kamron Test O2 Delivery Device FiO2 (21.00-100.00) % Sodium (136-145) mEq/L Potassium (3.5-5.1) mEq/L Chloride (98-107) mEq/L Carbon Dioxide (21-32) mEq/L Anion Gap (5-15) BUN (7-18) mg/dL Creatinine (0.55-1.02) mg/dL Est Cr Clr Drug Dosing mL/min Estimated GFR (MDRD) (>60) mL/min BUN/Creatinine Ratio (14-18) Glucose (80-115) mg/dL Hemoglobin A1c (4.50-6.20) % Serum Osmolality 351 H (280-300) mosm/kg Lactic Acid 2.7 H* (0.4-2.0) mmol/L Calcium (8.5-10.1) mg/dL Phosphorus 4.8 H (2.6-4.7) mg/dL Magnesium 2.3 (1.8-2.4) mg/dl Total Bilirubin (0.2-1.0) mg/dL AST (15-37) U/L ALT (14-59) U/L Alkaline Phosphatase (46-116) U/L Troponin I < 0.017 (0.00-0.056) ng/mL C-Reactive Protein 1.7 H* (<1.0) mg/dL NT-Pro-B Natriuret Pep (0-125) pg/mL Total Protein (6.4-8.2) g/dl Albumin (3.4-5.0) g/dl Globulin gm/dL Albumin/Globulin Ratio (1-2) TSH 3rd Generation 1.097 (0.358-3.74) uIU/mL Urine Color (Yellow) Urine Appearance (Clear) Urine pH (5.0-8.0) Ur Specific Chaplin (1.005-1.030) Urine Protein (Negative) Urine Glucose (UA) (Negative) Urine Ketones (Negative) Urine Occult Blood (Negative) Urine Nitrite (Negative) Urine Bilirubin (Negative) Urine Urobilinogen (0.2-1.0) Ur Leukocyte Esterase (Negative) Urine RBC (0-5) /hpf Urine WBC (0-5) /hpf Ur Squamous Epith Cells (0-5) /hpf Urine Bacteria (FEW) /hpf Hyaline Casts (0-5) /lpf Urine Mucus (FEW) /hpf Ketones (0.0-0.3) mM 09/10/19 09/10/19 Range/Units 14:10 14:10 WBC (3.98-10.04) K/mm3 RBC (3.98-5.22) M/mm3 Hgb (11.2-15.7) gm/dl Hct (34.1-44.9) % MCV (79.4-94.8) fl MCH (25.6-32.2) pg MCHC (32.2-35.5) g/dl RDW Std Deviation (36.4-46.3) fL Plt Count (182-369) K/mm3 MPV (9.4-12.3) fl Neut % (Auto) (34.0-71.1) % Lymph % (Auto) (19.3-51.7) % Vigo % (Auto) (4.7-12.5) % Eos % (Auto) (0.7-5.8) Baso % (Auto) (0.1-1.2) % Neut # (Auto) (1.56-6.13) K/mm3 Lymph # (Auto) (1.18-3.74) K/mm3 Vigo # (Auto) (0.24-0.36) K/mm3 Eos # (Auto) (0.04-0.36) K/mm3 Baso # (Auto) (0.01-0.08) K/mm3 Neutrophils % (Manual) (40-60) % Band Neutrophils % (0-10) % Lymphocytes % (Manual) (20-40) % Atypical Lymphs % % Monocytes % (Manual) (2-10) % Eosinophils % (Manual) (0.7-5.8) % Basophils % (Manual) (0.1-1.2) Manual Slide Review Platelet Estimate Anisocytosis RBC Morph Comment PT (9.7-12.0) SECONDS INR Puncture Site ABG pH (7.35-7.45) ABG pCO2 (35.0-45.0) mmHg ABG HCO3 (22.0-26.0) meq/L ABG O2 Saturation (96.0-97.0) % ABG Base Excess (-2-2.0) Kamron Test O2 Delivery Device FiO2 (21.00-100.00) % Sodium (136-145) mEq/L Potassium (3.5-5.1) mEq/L Chloride (98-107) mEq/L Carbon Dioxide (21-32) mEq/L Anion Gap (5-15) BUN (7-18) mg/dL Creatinine (0.55-1.02) mg/dL Est Cr Clr Drug Dosing mL/min Estimated GFR (MDRD) (>60) mL/min BUN/Creatinine Ratio (14-18) Glucose (80-115) mg/dL Hemoglobin A1c 10.90 H (4.50-6.20) % Serum Osmolality (280-300) mosm/kg Lactic Acid (0.4-2.0) mmol/L Calcium (8.5-10.1) mg/dL Phosphorus (2.6-4.7) mg/dL Magnesium (1.8-2.4) mg/dl Total Bilirubin (0.2-1.0) mg/dL AST (15-37) U/L ALT (14-59) U/L Alkaline Phosphatase (46-116) U/L Troponin I (0.00-0.056) ng/mL C-Reactive Protein (<1.0) mg/dL NT-Pro-B Natriuret Pep (0-125) pg/mL Total Protein (6.4-8.2) g/dl Albumin (3.4-5.0) g/dl Globulin gm/dL Albumin/Globulin Ratio (1-2) TSH 3rd Generation (0.358-3.74) uIU/mL Urine Color (Yellow) Urine Appearance (Clear) Urine pH (5.0-8.0) Ur Specific Chaplin (1.005-1.030) Urine Protein (Negative) Urine Glucose (UA) (Negative) Urine Ketones (Negative) Urine Occult Blood (Negative) Urine Nitrite (Negative) Urine Bilirubin (Negative) Urine Urobilinogen (0.2-1.0) Ur Leukocyte Esterase (Negative) Urine RBC (0-5) /hpf Urine WBC (0-5) /hpf Ur Squamous Epith Cells (0-5) /hpf Urine Bacteria (FEW) /hpf Hyaline Casts (0-5) /lpf Urine Mucus (FEW) /hpf Ketones 14.52 (0.0-0.3) mM Meds: Medications Generic Name Dose Route Start Last Admin Trade Name Freq PRN Reason Stop Dose Admin Albuterol/Ipratropium 3 ml 09/10/19 17:10 Duoneb 3.0-0.5 Mg/3 Ml NEB Q4H PRN Shortness Of Breath/wheezing Heparin Sodium (Porcine) 5,000 units 09/10/19 18:00 Heparin Sodium SUBCUT Q8H FARHEEN Hydromorphone HCl 0.5 mg 09/10/19 17:10 Dilaudid IVPUSH Q2H PRN Pain (severe 7-10) Insulin Human Regular 100 unit 100 mls @ 10 mls/hr 09/10/19 14:37 09/10/19 14 :56 / Sodium Chloride IV 6 unit/hr TITRATE FARHEEN 6 mls/hr Administration Protocol 10 UNIT/HR Potassium Chloride 10 meq/ 100 mls @ 100 mls/hr 09/10/19 15:15 09/10/19 17:15 Premix IV 09/10/19 18:14 100 mls/hr Q1H FARHEEN Administration Lactated Ringer's 1,000 mls @ 125 mls/hr 09/10/19 17:15 Ringers, Lactated IV ASDIRECTED FARHEEN Promethazine HCl 6.25 mg/ 50.25 mls @ 100 mls/hr 09/10/19 17:10 Sodium Chloride IV Q6H PRN Nausea/Vomiting Ibuprofen 600 mg 09/10/19 17:10 Motrin PO Q6H PRN Pain (moderate 4-6) Ondansetron HCl 4 mg 09/10/19 17:10 Zofran IV Q6H PRN Nausea/Vomiting Pantoprazole Sodium 40 mg 09/10/19 18:00 Protonix Iv IV Q12H FARHEEN Discontinued Medications Generic Name Dose Route Start Last Admin Trade Name Freq PRN Reason Stop Dose Admin Hydromorphone HCl 0.5 mg 09/10/19 14:20 09/10/19 14:47 Dilaudid IVPUSH 09/10/19 14:21 0.5 mg ONETIME ONE Administration Sodium Chloride 1,000 mls @ 999 mls/hr 09/10/19 13:00 09/10/19 13:20 Normal Saline IV 999 mls/hr ASDIRECTED FARHEEN Administration Insulin Human Regular 100 unit 100 mls @ 10.7 mls/hr 09/10/19 14:00 / Sodium Chloride IV TITRATE FARHEEN Protocol 0.1 UNITS/KG/HR Sodium Chloride 1,000 mls @ 999 mls/hr 09/10/19 15:15 09/10/19 15:30 Normal Saline IV 999 mls/hr ASDIRECTED FARHEEN Administration - Radiology Interpretation Free Text/Narrative:: 64-year-old female who is a known type II diabetic for an unknown length. Of time presents to the ED with uncontrolled type 2 diabetes. She smells strongly of ketones. Apparently her health and strength of been going downhill for over a week. She reports a fall striking the vertex of her occipital scalp about a week ago. Weakness although range of motion is normal she does have mild ataxia of the right upper limb. Patient spells strongly of ketones. Is for mold and shrunken and she is clinically volume depleted. It's unclear what her blood sugars are. Nurses got blood sugar greater than 400 in the ED. Appears on It and not capable of looking after herself at this point time. Apparently there is a friend with her that is trying to help her out. He does not have a primary care physician in town since moving or relocating to [place] from [place], [place]. Patient is on a basal dose of insulin and to Trulicity once weekly. Plan urine catheter specimen to be obtained due to marked excoriations of the perineum perianal tissues and vulva from candidiasis. There is also candidiasis across the lower abdominal wall or intertrigo under the pannus. She is morbidly obese. She has sinus tachycardia at rest. An IV will be normal saline at open. Routine labs including glycosylated protein in blood sugar and serum magnesium to be obtained as well as serum ketones, lactic acid - Re-Assessments/Exams Free Text/Narrative Re-Assessment/Exam: 09/10/19 13:57 Blood cell count is elevated at 14.86. Auto differential shows 84.6% neutrophils. Hemoglobin is 16.4 with hematocrit of 49.6 suggesting some degree of hemoconcentration. 3.8. Platelet count 308,000. ABGs reveal a pH of 7.40 with a PCO2 of 28.5. Bicarbonate is low at 17.3. O2 sats are 94.4% on room air. His 145 with a potassium of 3.8. Chloride 95 with a bicarbonate of 22. Anion gap is 31.8 markedly elevated. BUN is elevated at 28 with a creatinine 1.5. GFR is 35 i.e. stage III chronic kidney disease. BUN/creatinine ratio slightly elevated at 18.7. Glucose is elevated at 677. Calcium 9.5 with a bilirubin of 1.0. AST is mildly elevated at 60. ALT is 70. Alk phosphatase 257. Total protein is 8.5. Albumin fraction is low at 3.1. Urinalysis shows 1+ proteinuria 2+ glucosuria 2+ ketonuria and 2+ occult blood. There is also 1+ bilirubin. The slide shows 10-20 RBCs per high-power field and 0-5 wbc's. Many bacteria reported. Urine culture will be ordered. She'll be started on insulin infusion at 6 units an hour. Is to be checked every hourly. 09/10/19 14:35 still awaiting her serum ketones, lactic acid. BNP did return at 170. Chest x-ray reveals slightly tortuous thoracic aorta. Cardiac silhouette is otherwise normal in size and shape. Lungs are clear with no pleural effusions or diffuse vascular congestion. ET had reveals age- appropriate degenerative changes. There does appear to be an old lacunar infarct in the right basal ganglia fractures no intracranial bleeding or mass effect. There is mild diffuse or changes in both basal ganglia. 09/10/19 15:13 Lactic acid came back elevated at 2.7. Her potassium is low normal at 3.8 and with the fluids and insulin infusion he will go low. I will give her K rider at this time repeat 2. Serum osmolality has not yet returned. 09/10/19 16:32 Lactic acid is 2.7. Her hemoglobin A1c was 10.90. BNP is 170. Room osmolality is elevated at 351 case has been discussed with Dr. Anguiano personal secretary hospitalist and he will be admitting her to the intensive care unit for definitive management of diabetic ketoacidosis. At this time no obvious infection has been identified. Lactic acidosis appears to be elevated secondary to volume depletion and diabetic ketoacidosis. 09/10/19 17:51 room apparently in was now available. Last blood sugar was down to 430 1644 hrs. Of note her lactic acid second value actually went up to 290 from 270. He received a third liter of normal saline. Her insulin drip will be decreased from 6 units an hour down to 3 units an hour. Departure - Departure Time of Disposition: 14:42 Disposition: DC/Tfer to Acute Hospital 02 Condition: Fair Clinical Impression: Volume depletion, Chronic renal insufficiency, stage III (moderate) Diabetic ketoacidosis associated with type 2 diabetes mellitus Qualifiers: Diabetes mellitus complication detail: without coma Qualified Code(s): E11.10 - Type 2 diabetes mellitus with ketoacidosis without coma Leukocytosis, unspecified Qualifiers: Leukocytosis type: other Qualified Code(s): D72.828 - Other elevated white blood cell count - Discharge Information Sepsis Event Note - Evaluation Sepsis Screening Result: No Definite Risk - Focused Exam Vital Signs: Vital Signs Temp Pulse Resp BP Pulse Ox 09/10/19 11:50 36.4 C 122 H 20 137/81 93 L Date Exam was Performed: 09/10/19 Time Exam was Performed: 17:50 - My Orders Last 24 Hours: My Active Orders 09/10/19 12:30 Insert Thakur Catheter [Insert Urinary Catheter] [OM.PC] Q24H Urinary Catheter Assessment [RC] ASDIRECTED 09/10/19 12:57 EKG Documentation Completion [RC] STAT 09/10/19 12:58 Blood Glucose Check, Bedside [RC] ONETIME CULTURE BLOOD [BC] Stat CULTURE BLOOD [BC] Stat Blood Culture x2 Reflex Set [OM.PC] Stat 09/10/19 14:37 Insulin Regular, Human [HumuLIN R] 100 unit Sodium Chloride 0.9% [Normal Saline] 99 ml IV TITRATE - Assessment/Plan Last 24 Hours: My Active Orders 09/10/19 12:30 Insert Thakur Catheter [Insert Urinary Catheter] [OM.PC] Q24H Urinary Catheter Assessment [RC] ASDIRECTED 09/10/19 12:57 EKG Documentation Completion [RC] STAT 09/10/19 12:58 Blood Glucose Check, Bedside [RC] ONETIME CULTURE BLOOD [BC] Stat CULTURE BLOOD [BC] Stat Blood Culture x2 Reflex Set [OM.PC] Stat 09/10/19 14:37 Insulin Regular, Human [HumuLIN R] 100 unit Sodium Chloride 0.9% [Normal Saline] 99 ml IV TITRATE
[2019-09-10] MEDS ORDERED: Sodium Chloride 0.9% 1,000 ML IV SCH ×2 (13:00→15:15)
[2019-09-10] MEDS ORDERED: HYDROmorphone 0.5 MG/0.5 ML Syringe IVPUSH ONE (14:20)
[2019-09-10 14:53] LABS: HEMOGLOBIN A1C 10.9 % (4.50-6.20)
--- NOTE | 2019-09-10 15:00 | CR ---
Chest: Portable view of the chest was obtained. Comparison: Prior chest x-ray of 06/28/19. Heart size is normal. Upper mediastinum is normal. Lungs are clear with no acute parenchymal change. Bony structures are grossly intact. Impression: 1. Nothing acute is appreciated on portable chest x-ray. Diagnostic code #1 This report was dictated in [place] Standard Time
--- NOTE | 2019-09-10 15:00 | CT ---
Head CT Technique: Multiple axial sections through the brain were obtained. Intravenous contrast was not utilized. Comparison: No prior intracranial imaging. Findings: Ventricles along with basal cisterns and sulci over the convexities are mildly prominent. No abnormal parenchymal densities are seen. No evidence of intracranial hemorrhage. No midline shift or mass effect is appreciated. Bone window settings were reviewed which show the visualized paranasal sinuses to appear clear. Visualized mastoid sinuses are also clear. No acute calvarial abnormality is appreciated. Impression: 1. Minimal senescent change. 2. Nothing acute is appreciated on noncontrast head CT exam. Diagnostic code #1 This report was dictated in [place] Standard Time
[2019-09-10] MEDS: Potassium Chloride 10 MEQ in Premix Bag 1 BAG IV SCH ×4 (15:35→23:11)
--- NOTE | 2019-09-10 16:14 | PCM.HP.2 ---
H&P History of Present Illness - General Date of Service: 09/10/19 Admit Problem/Dx: Admission Diagnosis/Problem Admission Diagnosis/Problem Diabetic ketoacidosis Source of Information: Patient, Provider, RN Notes Reviewed, Significant Other History Limitations: Reports: Altered Mental Status - History of Present Illness Initial Comments - Free Text/Narative: This is a 64 yo white female with past medical hx/o Impaired Vision, HLD, COPD, Hypothyroidism, Urinary Incontinence, Recurrent UTI, Hx/o Pyelonephritis, Fibromyalgia, Seizure, Schizophrenia/Schizoaffective Disorder, Muscle Spasm, Anxiety, Depression, and Obesity who was brought in by a concerned neighbor due to feeling ill for the past 2 weeks. Her symptoms gradually worsened in the past couple of days. States she has been having abdominal pain associated with nausea, vomiting, and diarrhea. She also has been extremely thirsty and report increased fluid intake. Her appetite was poor due to GI symptoms. Additionally, she had tremors on her right arm when her neighbors checked on her today. HPI is incomplete with patient being sedated/lethargic. Her initial work up in ED shows a CBC remarkable for WBC of 14.86, RBC of 5.92, Hgb of 16.4, Hct of 49.6, MPV of 13.2, Neutrophils of 84.6%, Lymphocytes of 7.9% , Neutrophil # of 12.57, Lymphocyte # of 1.17, and Monocyte # of 1.07. Her coagulation studies show PT of 13.9 and INR of 1.29. Her ABG shows pH of 7.4, pCO2 of 38.5, HCO3 of 17.3, and O2 Sat of 94.4% on RA. Her Chemistry is significant for Cl of 95, AG of 31.8, BUN of 28, Cr of 1.5, BS of 677, Serum Osm of 351, LA of 2.7, Phos of 4.8, AST of 60, ALT of 70, Alk Phos of 257, ProBNP of 170, Total Protein of 8.5, and Albumin of 3.1. Her A1C is 10.90 with Ketones of 14.52. Her UA is not suggestive of UTI. Her chest x-ray and head CT scan reports read as nothing acute is appreciated. Patient received initial treatment in ED before coming to the unit for further management of DKA. Left Abdominal Pain Score (Numeric/FACES): 10 - Related Data Allergies/Adverse Reactions: Allergies Allergy/AdvReac Type Severity Reaction Status Date / Time acetaminophen Allergy Cannot Verified 06/28/19 11:12 [From Tylenol-Codeine #3] Remember codeine Allergy Cannot Verified 06/28/19 11:12 [From Tylenol-Codeine #3] Remember morphine AdvReac Headache Verified 09/10/19 14:43 Home Medications: Home Meds Cyclobenzaprine [Flexeril] 10 mg PO TID PRN 09/01/16 [History] Pregabalin [Lyrica] 300 mg PO BID 09/01/16 [History] ARIPiprazole [Abilify] 10 mg PO DAILY 06/22/19 [History] Dulaglutide [Trulicity] 1.5 mg SQ TU 06/28/19 [History] ARIPiprazole [Aripiprazole] 40 mg PO DAILY 09/10/19 [History] Fluticasone/Vilanterol [Breo Ellipta 100-25 MCG Inhalation Kit] 1 each IH ASDIRECTED 09/10/19 [History] Rosuvastatin Calcium 20 mg PO BEDTIME 09/10/19 [History] ALPRAZolam [Alprazolam] 0.25 mg PO BID PRN 09/11/19 [History] FLUoxetine HCl [Fluoxetine HCl] 80 mg PO DAILY 09/11/19 [History] Paliperidone [Invega] 6 mg PO DAILY 09/11/19 [History] hydrOXYzine HCL [Hydroxyzine HCl] 25 mg PO TID PRN 09/11/19 [History] metFORMIN HCl [Metformin HCl] 1,000 mg PO BID 09/11/19 [History] Past Medical History HEENT History: Reports: Impaired Vision Other HEENT History: wears eyeglasses, has no teeth, frequent abscesses to "nubs " of teeth that are still in place. Cardiovascular History: Reports: High Cholesterol Respiratory History: Reports: COPD Genitourinary History: Reports: Pyelonephritis, Urinary Incontinence, UTI, Recurrent [employer] History: Reports: Musculoskeletal History: Reports: Fracture, Fibromyalgia Neurological History: Reports: Seizure Psychiatric History: Reports: Anxiety, Depression, PTSD, Schizophrenia Endocrine/Metabolic History: Reports: Diabetes, Type II, Hypothyroidism - Infectious Disease History Infectious Disease History: Reports: Chicken Pox, Hepatitis C, Measles, Mumps, Scarlet Fever - Past Surgical History GI Surgical History: Reports: Appendectomy, Cholecystectomy Musculoskeletal Surgical History: Reports: ORIF Social & Family History - Tobacco Use Smoking Status *Q: Never Smoker Second Hand Smoke Exposure: No - Caffeine Use Caffeine Use: Reports: Coffee, Soda - Recreational Drug Use Recreational Drug Use: No - Living Situation & Occupation Living situation: Reports: Single Occupation: Disabled H&P Review of Systems - Review of Systems: Review Of Systems: See Below General: Reports: Malaise, Weakness, Fatigue, Decreased Appetite, Other ( increased thirst) HEENT: Reports: No Symptoms Pulmonary: Denies: Shortness of Breath Cardiovascular: Denies: Chest Pain, Dyspnea on Exertion, Lightheadedness Gastrointestinal: Reports: Abdominal Pain, Diarrhea, Nausea, Vomiting Genitourinary: Reports: Frequency Musculoskeletal: Reports: No Symptoms Skin: Reports: No Symptoms Psychiatric: Denies: Anxiety, Hallucinations Neurological: Reports: Gait Disturbance. Denies: Numbness, Seizure, Syncope, Tingling, Trouble Speaking Hematologic/Lymphatic: Reports: No Symptoms Immunologic: Reports: No Symptoms Review of Systems Comment:: Sedated/lethargic Exam - Exam Exam: See Below - Vital Signs Vital Signs: Last Vital Signs Temp 36.4 C 09/10/19 11:50 Pulse 122 H 09/10/19 11:50 Resp 20 09/10/19 11:50 BP 137/81 09/10/19 11:50 Pulse Ox 93 L 09/10/19 11:50 Weight: 107.048 kg - Exam General: Cooperative, Sedated, Other (Obese) HEENT: Conjunctiva Clear, EACs Clear, Hearing Intact, Mucosa Moist & [place], Nares Patent, Normal Nasal Septum, Posterior Pharynx Clear, Pupils Equal Neck: Supple, Trachea Midline, Full Range of Motion, Other (neck short and thick ) Lungs: Clear to Auscultation, Normal Respiratory Effort, Decreased Breath Sounds Cardiovascular: Regular Rate, Regular Rhythm GI/Abdominal Exam: Normal Bowel Sounds, Soft, Non-Tender, No Organomegaly, No Distention, No Abnormal Bruit, No Mass, Other (Obese) (Female) Exam: Deferred Rectal (Female) Exam: Deferred Back Exam: Normal Inspection, Decreased Range of Motion Extremities: Normal Inspection, Normal Range of Motion, Non-Tender, No Pedal Edema, Normal Capillary Refill Peripheral Pulses: 2+: Dorsalis Pedis (L), Dorsalis Pedis (R) Skin: Warm, Dry, Intact Neuro Extensive - Mental Status: Normal Mood/Affect, Other (sedated about arousable to verbal calls) Neuro Extensive - Motor, Sensory, Reflexes: Abnormal Gait, Other (not appropriate for complete neurological exam) Psychiatric: Normal Affect, Normal Mood. No: Withdrawal Symptoms Physical Exam Comments:: arousable and able to talk - Patient Data Lab Results Last 24 hrs: Laboratory Results - last 24 hr 09/10/19 09/10/19 09/10/19 Range/Units 12:40 12:40 12:41 WBC 14.86 H (3.98-10.04) K/mm3 RBC 5.92 H (3.98-5.22) M/mm3 Hgb 16.4 H D (11.2-15.7) gm/dl Hct 49.6 H (34.1-44.9) % MCV 83.8 D (79.4-94.8) fl MCH 27.7 (25.6-32.2) pg MCHC 33.1 (32.2-35.5) g/dl RDW Std Deviation 43.9 (36.4-46.3) fL Plt Count 308 D (182-369) K/mm3 MPV 13.2 H (9.4-12.3) fl Neut % (Auto) 84.6 H (34.0-71.1) % Lymph % (Auto) 7.9 L (19.3-51.7) % [place] % (Auto) 7.2 (4.7-12.5) % Eos % (Auto) 0 L (0.7-5.8) Baso % (Auto) 0.2 (0.1-1.2) % Neut # (Auto) 12.57 H (1.56-6.13) K/mm3 Lymph # (Auto) 1.17 L (1.18-3.74) K/mm3 [place] # (Auto) 1.07 H (0.24-0.36) K/mm3 Eos # (Auto) 0.00 L (0.04-0.36) K/mm3 Baso # (Auto) 0.03 (0.01-0.08) K/mm3 Neutrophils % (Manual) (40-60) % Band Neutrophils % (0-10) % Lymphocytes % (Manual) (20-40) % Atypical Lymphs % % Monocytes % (Manual) (2-10) % Eosinophils % (Manual) (0.7-5.8) % Basophils % (Manual) (0.1-1.2) Manual Slide Review Abnormal smear Platelet Estimate Anisocytosis RBC Morph Comment ESR (0-20) mm/hr PT (9.7-12.0) SECONDS INR Puncture Site ABG pH (7.35-7.45) ABG pCO2 (35.0-45.0) mmHg ABG HCO3 (22.0-26.0) meq/L ABG O2 Saturation (96.0-97.0) % ABG Base Excess (-2-2.0) Kamron Test O2 Delivery Device FiO2 (21.00-100.00) % Sodium 145 (136-145) mEq/L Potassium 3.8 (3.5-5.1) mEq/L Chloride 95 L (98-107) mEq/L Carbon Dioxide 22 (21-32) mEq/L Anion Gap 31.8 H (5-15) BUN 28 H (7-18) mg/dL Creatinine 1.5 H (0.55-1.02) mg/dL Est Cr Clr Drug Dosing 34.99 mL/min Estimated GFR (MDRD) 35 (>60) mL/min BUN/Creatinine Ratio 18.7 H (14-18) Glucose 677 H* (80-115) mg/dL Hemoglobin A1c (4.50-6.20) % Serum Osmolality (280-300) mosm/kg Lactic Acid (0.4-2.0) mmol/L Calcium 9.5 (8.5-10.1) mg/dL Phosphorus (2.6-4.7) mg/dL Magnesium (1.8-2.4) mg/dl Total Bilirubin 1.0 (0.2-1.0) mg/dL AST 60 H (15-37) U/L ALT 70 H (14-59) U/L Alkaline Phosphatase 257 H (46-116) U/L Troponin I (0.00-0.056) ng/mL C-Reactive Protein (<1.0) mg/dL NT-Pro-B Natriuret Pep 170 H (0-125) pg/mL Total Protein 8.5 H (6.4-8.2) g/dl Albumin 3.1 L (3.4-5.0) g/dl Globulin 5.4 gm/dL Albumin/Globulin Ratio 0.6 L (1-2) TSH 3rd Generation (0.358-3.74) uIU/mL Urine Color (Yellow) Urine Appearance (Clear) Urine pH (5.0-8.0) Ur Specific [place] (1.005-1.030) Urine Protein (Negative) Urine Glucose (UA) (Negative) Urine Ketones (Negative) Urine Occult Blood (Negative) Urine Nitrite (Negative) Urine Bilirubin (Negative) Urine Urobilinogen (0.2-1.0) Ur Leukocyte Esterase (Negative) Urine RBC (0-5) /hpf Urine WBC (0-5) /hpf Ur Squamous Epith Cells (0-5) /hpf Urine Bacteria (FEW) /hpf Hyaline Casts (0-5) /lpf Urine Mucus (FEW) /hpf Ketones (0.0-0.3) mM 09/10/19 09/10/19 09/10/19 Range/Units 12:50 13:01 14:10 WBC 15.38 H (3.98-10.04) K/mm3 RBC 5.94 H (3.98-5.22) M/mm3 Hgb 16.6 H (11.2-15.7) gm/dl Hct 49.9 H (34.1-44.9) % MCV 84.0 (79.4-94.8) fl MCH 27.9 (25.6-32.2) pg MCHC 33.3 (32.2-35.5) g/dl RDW Std Deviation 44.4 (36.4-46.3) fL Plt Count 228 D (182-369) K/mm3 MPV 12.7 H (9.4-12.3) fl Neut % (Auto) (34.0-71.1) % Lymph % (Auto) (19.3-51.7) % [place] % (Auto) (4.7-12.5) % Eos % (Auto) (0.7-5.8) Baso % (Auto) (0.1-1.2) % Neut # (Auto) (1.56-6.13) K/mm3 Lymph # (Auto) (1.18-3.74) K/mm3 [place] # (Auto) (0.24-0.36) K/mm3 Eos # (Auto) (0.04-0.36) K/mm3 Baso # (Auto) (0.01-0.08) K/mm3 Neutrophils % (Manual) 84 H (40-60) % Band Neutrophils % 0 (0-10) % Lymphocytes % (Manual) 8 L (20-40) % Atypical Lymphs % 0 % Monocytes % (Manual) 7 (2-10) % Eosinophils % (Manual) 1 (0.7-5.8) % Basophils % (Manual) 0 L (0.1-1.2) Manual Slide Review Platelet Estimate Adequate Anisocytosis 1+ slight RBC Morph Comment Not Reportable ESR (0-20) mm/hr PT (9.7-12.0) SECONDS INR Puncture Site Rt radial ABG pH 7.40 (7.35-7.45) ABG pCO2 28.5 L (35.0-45.0) mmHg ABG HCO3 17.3 L (22.0-26.0) meq/L ABG O2 Saturation 94.4 L (96.0-97.0) % ABG Base Excess -5.7 L (-2-2.0) Kamron Test Positive O2 Delivery Device Room air FiO2 0.00 L (21.00-100.00) % Sodium (136-145) mEq/L Potassium (3.5-5.1) mEq/L Chloride (98-107) mEq/L Carbon Dioxide (21-32) mEq/L Anion Gap (5-15) BUN (7-18) mg/dL Creatinine (0.55-1.02) mg/dL Est Cr Clr Drug Dosing mL/min Estimated GFR (MDRD) (>60) mL/min BUN/Creatinine Ratio (14-18) Glucose (80-115) mg/dL Hemoglobin A1c (4.50-6.20) % Serum Osmolality (280-300) mosm/kg Lactic Acid (0.4-2.0) mmol/L Calcium (8.5-10.1) mg/dL Phosphorus (2.6-4.7) mg/dL Magnesium (1.8-2.4) mg/dl Total Bilirubin (0.2-1.0) mg/dL AST (15-37) U/L ALT (14-59) U/L Alkaline Phosphatase (46-116) U/L Troponin I (0.00-0.056) ng/mL C-Reactive Protein (<1.0) mg/dL NT-Pro-B Natriuret Pep (0-125) pg/mL Total Protein (6.4-8.2) g/dl Albumin (3.4-5.0) g/dl Globulin gm/dL Albumin/Globulin Ratio (1-2) TSH 3rd Generation (0.358-3.74) uIU/mL Urine Color Yellow (Yellow) Urine Appearance Clear (Clear) Urine pH 6.0 (5.0-8.0) Ur Specific [place] 1.020 (1.005-1.030) Urine Protein 1+ H (Negative) Urine Glucose (UA) 2+ H (Negative) Urine Ketones 2+ H (Negative) Urine Occult Blood 2+ H (Negative) Urine Nitrite Negative (Negative) Urine Bilirubin 1+ H (Negative) Urine Urobilinogen 0.2 (0.2-1.0) Ur Leukocyte Esterase Negative (Negative) Urine RBC 10-20 H (0-5) /hpf Urine WBC 0-5 (0-5) /hpf Ur Squamous Epith Cells 0-5 (0-5) /hpf Urine Bacteria Many H (FEW) /hpf Hyaline Casts 0-5 (0-5) /lpf Urine Mucus Few (FEW) /hpf Ketones (0.0-0.3) mM 09/10/19 09/10/19 09/10/19 Range/Units 14:10 14:10 14:10 WBC (3.98-10.04) K/mm3 RBC (3.98-5.22) M/mm3 Hgb (11.2-15.7) gm/dl Hct (34.1-44.9) % MCV (79.4-94.8) fl MCH (25.6-32.2) pg MCHC (32.2-35.5) g/dl RDW Std Deviation (36.4-46.3) fL Plt Count (182-369) K/mm3 MPV (9.4-12.3) fl Neut % (Auto) (34.0-71.1) % Lymph % (Auto) (19.3-51.7) % [place] % (Auto) (4.7-12.5) % Eos % (Auto) (0.7-5.8) Baso % (Auto) (0.1-1.2) % Neut # (Auto) (1.56-6.13) K/mm3 Lymph # (Auto) (1.18-3.74) K/mm3 [place] # (Auto) (0.24-0.36) K/mm3 Eos # (Auto) (0.04-0.36) K/mm3 Baso # (Auto) (0.01-0.08) K/mm3 Neutrophils % (Manual) (40-60) % Band Neutrophils % (0-10) % Lymphocytes % (Manual) (20-40) % Atypical Lymphs % % Monocytes % (Manual) (2-10) % Eosinophils % (Manual) (0.7-5.8) % Basophils % (Manual) (0.1-1.2) Manual Slide Review Platelet Estimate Anisocytosis RBC Morph Comment ESR (0-20) mm/hr PT 13.9 H (9.7-12.0) SECONDS INR 1.29 Puncture Site ABG pH (7.35-7.45) ABG pCO2 (35.0-45.0) mmHg ABG HCO3 (22.0-26.0) meq/L ABG O2 Saturation (96.0-97.0) % ABG Base Excess (-2-2.0) Kamron Test O2 Delivery Device FiO2 (21.00-100.00) % Sodium (136-145) mEq/L Potassium (3.5-5.1) mEq/L Chloride (98-107) mEq/L Carbon Dioxide (21-32) mEq/L Anion Gap (5-15) BUN (7-18) mg/dL Creatinine (0.55-1.02) mg/dL Est Cr Clr Drug Dosing mL/min Estimated GFR (MDRD) (>60) mL/min BUN/Creatinine Ratio (14-18) Glucose (80-115) mg/dL Hemoglobin A1c (4.50-6.20) % Serum Osmolality 351 H (280-300) mosm/kg Lactic Acid 2.7 H* (0.4-2.0) mmol/L Calcium (8.5-10.1) mg/dL Phosphorus 4.8 H (2.6-4.7) mg/dL Magnesium 2.3 (1.8-2.4) mg/dl Total Bilirubin (0.2-1.0) mg/dL AST (15-37) U/L ALT (14-59) U/L Alkaline Phosphatase (46-116) U/L Troponin I < 0.017 (0.00-0.056) ng/mL C-Reactive Protein 1.7 H* (<1.0) mg/dL NT-Pro-B Natriuret Pep (0-125) pg/mL Total Protein (6.4-8.2) g/dl Albumin (3.4-5.0) g/dl Globulin gm/dL Albumin/Globulin Ratio (1-2) TSH 3rd Generation 1.097 (0.358-3.74) uIU/mL Urine Color (Yellow) Urine Appearance (Clear) Urine pH (5.0-8.0) Ur Specific [place] (1.005-1.030) Urine Protein (Negative) Urine Glucose (UA) (Negative) Urine Ketones (Negative) Urine Occult Blood (Negative) Urine Nitrite (Negative) Urine Bilirubin (Negative) Urine Urobilinogen (0.2-1.0) Ur Leukocyte Esterase (Negative) Urine RBC (0-5) /hpf Urine WBC (0-5) /hpf Ur Squamous Epith Cells (0-5) /hpf Urine Bacteria (FEW) /hpf Hyaline Casts (0-5) /lpf Urine Mucus (FEW) /hpf Ketones (0.0-0.3) mM 09/10/19 09/10/19 09/10/19 Range/Units 14:10 14:10 14:45 WBC (3.98-10.04) K/mm3 RBC (3.98-5.22) M/mm3 Hgb (11.2-15.7) gm/dl Hct (34.1-44.9) % MCV (79.4-94.8) fl MCH (25.6-32.2) pg MCHC (32.2-35.5) g/dl RDW Std Deviation (36.4-46.3) fL Plt Count (182-369) K/mm3 MPV (9.4-12.3) fl Neut % (Auto) (34.0-71.1) % Lymph % (Auto) (19.3-51.7) % [place] % (Auto) (4.7-12.5) % Eos % (Auto) (0.7-5.8) Baso % (Auto) (0.1-1.2) % Neut # (Auto) (1.56-6.13) K/mm3 Lymph # (Auto) (1.18-3.74) K/mm3 [place] # (Auto) (0.24-0.36) K/mm3 Eos # (Auto) (0.04-0.36) K/mm3 Baso # (Auto) (0.01-0.08) K/mm3 Neutrophils % (Manual) (40-60) % Band Neutrophils % (0-10) % Lymphocytes % (Manual) (20-40) % Atypical Lymphs % % Monocytes % (Manual) (2-10) % Eosinophils % (Manual) (0.7-5.8) % Basophils % (Manual) (0.1-1.2) Manual Slide Review Platelet Estimate Anisocytosis RBC Morph Comment ESR 20 (0-20) mm/hr PT (9.7-12.0) SECONDS INR Puncture Site ABG pH (7.35-7.45) ABG pCO2 (35.0-45.0) mmHg ABG HCO3 (22.0-26.0) meq/L ABG O2 Saturation (96.0-97.0) % ABG Base Excess (-2-2.0) Kamron Test O2 Delivery Device FiO2 (21.00-100.00) % Sodium (136-145) mEq/L Potassium (3.5-5.1) mEq/L Chloride (98-107) mEq/L Carbon Dioxide (21-32) mEq/L Anion Gap (5-15) BUN (7-18) mg/dL Creatinine (0.55-1.02) mg/dL Est Cr Clr Drug Dosing mL/min Estimated GFR (MDRD) (>60) mL/min BUN/Creatinine Ratio (14-18) Glucose (80-115) mg/dL Hemoglobin A1c 10.90 H (4.50-6.20) % Serum Osmolality (280-300) mosm/kg Lactic Acid (0.4-2.0) mmol/L Calcium (8.5-10.1) mg/dL Phosphorus (2.6-4.7) mg/dL Magnesium (1.8-2.4) mg/dl Total Bilirubin (0.2-1.0) mg/dL AST (15-37) U/L ALT (14-59) U/L Alkaline Phosphatase (46-116) U/L Troponin I (0.00-0.056) ng/mL C-Reactive Protein (<1.0) mg/dL NT-Pro-B Natriuret Pep (0-125) pg/mL Total Protein (6.4-8.2) g/dl Albumin (3.4-5.0) g/dl Globulin gm/dL Albumin/Globulin Ratio (1-2) TSH 3rd Generation (0.358-3.74) uIU/mL Urine Color (Yellow) Urine Appearance (Clear) Urine pH (5.0-8.0) Ur Specific [place] (1.005-1.030) Urine Protein (Negative) Urine Glucose (UA) (Negative) Urine Ketones (Negative) Urine Occult Blood (Negative) Urine Nitrite (Negative) Urine Bilirubin (Negative) Urine Urobilinogen (0.2-1.0) Ur Leukocyte Esterase (Negative) Urine RBC (0-5) /hpf Urine WBC (0-5) /hpf Ur Squamous Epith Cells (0-5) /hpf Urine Bacteria (FEW) /hpf Hyaline Casts (0-5) /lpf Urine Mucus (FEW) /hpf Ketones 14.52 (0.0-0.3) mM Result Diagrams: 09/11/19 05:20 09/11/19 05:20 Sepsis Event Note - Evaluation Sepsis Screening Result: No Definite Risk - Focused Exam Vital Signs: Vital Signs Temp Pulse Resp BP Pulse Ox 09/10/19 11:50 36.4 C 122 H 20 137/81 93 L Date Exam was Performed: 09/11/19 Time Exam was Performed: 16:04 Problem List Initiated/Reviewed/Updated: Yes Orders Last 24hrs: Active Orders 24 hr Category Date Time Status Admission Status [Patient Status] [ADT] Routine ADT 09/10/19 14:44 Active Blood Glucose Check, Bedside [RC] ONETIME Care 09/10/19 12:58 Active EKG Documentation Completion [RC] STAT Care 09/10/19 12:57 Active Insert Thakur Catheter [Insert Urinary Catheter] [OM.PC] Care 09/10/19 12:30 Ordered Q24H Urinary Catheter Assessment [RC] ASDIRECTED Care 09/10/19 12:30 Active CULTURE BLOOD [BC] Stat Lab 09/10/19 12:58 Ordered CULTURE BLOOD [BC] Stat Lab 09/10/19 12:58 Ordered LACTIC ACID [CHEM] Stat Lab 09/10/19 17:00 Ordered Insulin Regular, Human [HumuLIN R] 100 unit Med 09/10/19 14:37 Active Sodium Chloride 0.9% [Normal Saline] 99 ml IV TITRATE Potassium Chloride [KCl 10 MEQ in Water 100 ML] 10 meq Med 09/10/19 15:15 Active Premix Bag 1 bag IV Q1H Sodium Chloride 0.9% [Normal Saline] 1,000 ml Med 09/10/19 13:00 Active IV ASDIRECTED Sodium Chloride 0.9% [Normal Saline] 1,000 ml Med 09/10/19 15:15 Active IV ASDIRECTED Blood Culture x2 Reflex Set [OM.PC] Stat Oth 09/10/19 12:58 Ordered Medication Orders Sodium Chloride (Normal Saline) 1,000 mls @ 999 mls/hr IV ASDIRECTED FARHEEN Last Admin: 09/10/19 13:20 Dose: 999 mls/hr Insulin Human Regular 100 unit (/ Sodium Chloride) 100 mls @ 6 mls/hr IV TITRATE FARHEEN; Protocol Last Admin: 09/10/19 14:56 Dose: 6 unit/hr, 6 mls/hr Sodium Chloride (Normal Saline) 1,000 mls @ 999 mls/hr IV ASDIRECTED FARHEEN Last Admin: 09/10/19 15:30 Dose: 999 mls/hr Potassium Chloride 10 meq/ (Premix) 100 mls @ 100 mls/hr IV Q1H FARHEEN Stop: 09/10/19 18:14 Last Admin: 09/10/19 15:35 Dose: 100 mls/hr Assessment/Plan Comment:: Acute: AMS 2/2 Metabolic Encephalopathy from DKA. Head CT scan shows no acute abnormality. Plan: Supportive care and Aspiration precaution DKA. Presented lethargic with BS of 677, LA os 2.7 and Ketones of 14.52. Received fluids for initial volume resuscitation and insulin drip in ED prior to coming to the unit. Plan: Dr. Anguiano's DKA protocol DM2 with A1C of 10.90. She takes Metformin and Trulicity for maintenance medications. Hold home medications for now. Leukocytosis with WBC of 14.86 and 15.38 with 0 Band. Suspected secondary to hemo-concentration. ROSETTA 2/2 Intravascular Volume Depletion from GI/ loss. Bun of 28 with Cr of 1.5. No baseline for comparison. Avoid nephrotoxic agents. Serial BMP. Lactic Acidosis. LA of 2.7 likely from Metabolic Acidosis due to DKA. Hyperphosphatemia. PO4 of 4.8. 2/2 ROSETTA. Will monitor. Transaminitis. AST of 60 and ALT of 70. Likely from severe dehydration. Will hold statin and acetaminophen for now. Hypoalbuminemia. Albumin of 3.1. Obesity Class II. BMI of 39.3. Dietary consult for weight management. Proteinuria +1 Protein, Glucosuria 2+ Glucose, Ketonuria 2+ Ketones, Bilirubinuria, Bacteriuria, and Hematuria 2+ Occult Blood-abnormal finding on UA. Chronic: Impaired Vision, HLD, COPD, Hypothyroidism, Urinary Incontinence, Recurrent UTI, Hx/o Pyelonephritis, Fibromyalgia, Seizure, Schizophrenia/ Schizoaffective Disorder, Muscle Spasm, Anxiety, Depression, and Obesity Plan: Admit to the unit. Dr. Anguiano's DKA protocol. Continue volume resuscitation. NPO for now. Aspiration and Fall Precautions. Code status is full. Prognosis is guarded.
[2019-09-10] MEDS ORDERED: Promethazine 6.25 MG in Sodium Chloride 0.9% 50 ML IV PRN (17:10)
[2019-09-10] MEDS ORDERED: Albuterol/Ipratropium 3.0-0.5 MG/3 ML Neb Soln NEB PRN (17:10)
[2019-09-10] MEDS ORDERED: HYDROmorphone 0.5 MG/0.5 ML Syringe IVPUSH PRN (17:10)
[2019-09-10] MEDS ORDERED: Ondansetron 4 MG/2 ML SDV IV PRN (17:10)
[2019-09-10] MEDS ORDERED: Ibuprofen 600 MG Tab PO PRN (17:10)
[2019-09-10] MEDS ORDERED: Sodium Bicarbonate 150 MEQ in Dextrose 5% in Water 1,000 ML IV ONE ×2 (18:12)
[2019-09-10] MEDS: Lactated Ringers 1,000 ML IV SCH (18:19)
[2019-09-10] MEDS: Heparin Sodium 5,000 Units/ML Vial SUBCUT SCH (18:19)
[2019-09-10] MEDS: Pantoprazole 40 MG Vial IV SCH (18:20)
[2019-09-10] MEDS: Dextrose 5% in Water 1,000 ML IV SCH (21:02)
[2019-09-10] MEDS ORDERED: Potassium Chloride 20 MEQ Tab.ER PO ONE (22:57)
[2019-09-11] MEDS: guaiFENesin/Dextromethorphan 100-10 MG/5 ML Soln 5 ML Cup PO PRN (00:02)
[2019-09-11] MEDS: Potassium Chloride 10 MEQ in Premix Bag 1 BAG IV SCH ×3 (00:29→02:37)
[2019-09-11] MEDS: Nystatin Topical Powder 15 GM Bottle TOP SCH ×4 (01:43→21:09)
[2019-09-11] MEDS: Heparin Sodium 5,000 Units/ML Vial SUBCUT SCH ×3 (02:31→18:14)
[2019-09-11] MEDS: Lactated Ringers 1,000 ML IV SCH (02:39)
[2019-09-11] MEDS: Dextrose 5% in Water 1,000 ML IV SCH (03:36)
[2019-09-11] MEDS: Pantoprazole 40 MG Vial IV SCH ×2 (05:26→20:29)
--- NOTE | 2019-09-11 07:04 | PCM.PN ---
- General Info Date of Service: 09/11/19 Admission Dx/Problem (Free Text): Admission Diagnosis/Problem Admission Diagnosis/Problem Diabetic ketoacidosis Subjective Update: Follow Up Functional Status: Reports: Pain Controlled, Ambulating, Urinating, New Symptoms - Review of Systems General: Denies: Fever, Chills HEENT: Reports: No Symptoms Pulmonary: Denies: Shortness of Breath, Cough Cardiovascular: Denies: Chest Pain, Dyspnea on Exertion, Lightheadedness Gastrointestinal: Reports: Other (hungry). Denies: Abdominal Pain, Nausea, Vomiting Genitourinary: Reports: No Symptoms Musculoskeletal: Reports: No Symptoms Skin: Reports: No Symptoms, Rash Neurological: Reports: Difficulty Walking, Weakness, Gait Disturbance Psychiatric: Denies: Depression, Anxiety, Agitation, Hallucinations Systems Review Comment:: She slept okay due to multiple bouts of loose bowel movement overnight. AG resolved pretty much last night. However she is a bit low in Mg and Phos level. She is more alert/awake and report no complaints. - Patient Data Vitals - Most Recent: Last Vital Signs Temp 36.3 C 09/11/19 04:00 Pulse 108 H 09/10/19 19:29 Resp 17 09/11/19 04:00 BP 121/80 09/11/19 04:00 Pulse Ox 99 09/11/19 04:00 Weight - Most Recent: 112.763 kg I&O - Last 24 Hours: Intake & Output 09/10/19 09/11/19 09/11/19 22:59 06:59 14:59 Intake Total 320 3750 Output Total 260 515 Balance 60 3235 Lab Results Last 24 Hours: Laboratory Results - last 24 hr 09/10/19 09/10/19 09/10/19 Range/Units 12:40 12:40 12:41 WBC 14.86 H (3.98-10.04) K/mm3 RBC 5.92 H (3.98-5.22) M/mm3 Hgb 16.4 H D (11.2-15.7) gm/dl Hct 49.6 H (34.1-44.9) % MCV 83.8 D (79.4-94.8) fl MCH 27.7 (25.6-32.2) pg MCHC 33.1 (32.2-35.5) g/dl RDW Std Deviation 43.9 (36.4-46.3) fL Plt Count 308 D (182-369) K/mm3 MPV 13.2 H (9.4-12.3) fl Neut % (Auto) 84.6 H (34.0-71.1) % Lymph % (Auto) 7.9 L (19.3-51.7) % [place] % (Auto) 7.2 (4.7-12.5) % Eos % (Auto) 0 L (0.7-5.8) Baso % (Auto) 0.2 (0.1-1.2) % Neut # (Auto) 12.57 H (1.56-6.13) K/mm3 Lymph # (Auto) 1.17 L (1.18-3.74) K/mm3 [place] # (Auto) 1.07 H (0.24-0.36) K/mm3 Eos # (Auto) 0.00 L (0.04-0.36) K/mm3 Baso # (Auto) 0.03 (0.01-0.08) K/mm3 Neutrophils % (Manual) (40-60) % Band Neutrophils % (0-10) % Lymphocytes % (Manual) (20-40) % Atypical Lymphs % % Monocytes % (Manual) (2-10) % Eosinophils % (Manual) (0.7-5.8) % Basophils % (Manual) (0.1-1.2) Manual Slide Review Abnormal smear Platelet Estimate Anisocytosis RBC Morph Comment ESR (0-20) mm/hr PT (9.7-12.0) SECONDS INR Puncture Site ABG pH (7.35-7.45) ABG pCO2 (35.0-45.0) mmHg ABG HCO3 (22.0-26.0) meq/L ABG O2 Saturation (96.0-97.0) % ABG Base Excess (-2-2.0) Kamron Test O2 Delivery Device FiO2 (21.00-100.00) % Sodium 145 (136-145) mEq/L Potassium 3.8 (3.5-5.1) mEq/L Chloride 95 L (98-107) mEq/L Carbon Dioxide 22 (21-32) mEq/L Anion Gap 31.8 H (5-15) BUN 28 H (7-18) mg/dL Creatinine 1.5 H (0.55-1.02) mg/dL Est Cr Clr Drug Dosing 34.99 mL/min Estimated GFR (MDRD) 35 (>60) mL/min BUN/Creatinine Ratio 18.7 H (14-18) Glucose 677 H* (80-115) mg/dL POC Glucose (80-115) mg/dL Hemoglobin A1c (4.50-6.20) % Serum Osmolality (280-300) mosm/kg Lactic Acid (0.4-2.0) mmol/L Calcium 9.5 (8.5-10.1) mg/dL Phosphorus (2.6-4.7) mg/dL Magnesium (1.8-2.4) mg/dl Total Bilirubin 1.0 (0.2-1.0) mg/dL Direct Bilirubin (0.0-0.2) mg/dl Indirect Bilirubin AST 60 H (15-37) U/L ALT 70 H (14-59) U/L Alkaline Phosphatase 257 H (46-116) U/L Troponin I (0.00-0.056) ng/mL C-Reactive Protein (<1.0) mg/dL NT-Pro-B Natriuret Pep 170 H (0-125) pg/mL Total Protein 8.5 H (6.4-8.2) g/dl Albumin 3.1 L (3.4-5.0) g/dl Globulin 5.4 gm/dL Albumin/Globulin Ratio 0.6 L (1-2) TSH 3rd Generation (0.358-3.74) uIU/mL Urine Color (Yellow) Urine Appearance (Clear) Urine pH (5.0-8.0) Ur Specific [place] (1.005-1.030) Urine Protein (Negative) Urine Glucose (UA) (Negative) Urine Ketones (Negative) Urine Occult Blood (Negative) Urine Nitrite (Negative) Urine Bilirubin (Negative) Urine Urobilinogen (0.2-1.0) Ur Leukocyte Esterase (Negative) Urine RBC (0-5) /hpf Urine WBC (0-5) /hpf Ur Squamous Epith Cells (0-5) /hpf Urine Bacteria (FEW) /hpf Hyaline Casts (0-5) /lpf Urine Mucus (FEW) /hpf Urine Osmolality (400-1100) mosm/kg Ur Random Creatinine (30.0-125.0) mg/dL U Random Total Protein (0.0-11.8) mg/dL Ur Random Sodium (40-220) mEq/L Protein/Creatinin Ratio (0-149) mg/g Ketones (0.0-0.3) mM 09/10/19 09/10/19 09/10/19 Range/Units 12:50 13:01 14:10 WBC 15.38 H (3.98-10.04) K/mm3 RBC 5.94 H (3.98-5.22) M/mm3 Hgb 16.6 H (11.2-15.7) gm/dl Hct 49.9 H (34.1-44.9) % MCV 84.0 (79.4-94.8) fl MCH 27.9 (25.6-32.2) pg MCHC 33.3 (32.2-35.5) g/dl RDW Std Deviation 44.4 (36.4-46.3) fL Plt Count 228 D (182-369) K/mm3 MPV 12.7 H (9.4-12.3) fl Neut % (Auto) (34.0-71.1) % Lymph % (Auto) (19.3-51.7) % [place] % (Auto) (4.7-12.5) % Eos % (Auto) (0.7-5.8) Baso % (Auto) (0.1-1.2) % Neut # (Auto) (1.56-6.13) K/mm3 Lymph # (Auto) (1.18-3.74) K/mm3 [place] # (Auto) (0.24-0.36) K/mm3 Eos # (Auto) (0.04-0.36) K/mm3 Baso # (Auto) (0.01-0.08) K/mm3 Neutrophils % (Manual) 84 H (40-60) % Band Neutrophils % 0 (0-10) % Lymphocytes % (Manual) 8 L (20-40) % Atypical Lymphs % 0 % Monocytes % (Manual) 7 (2-10) % Eosinophils % (Manual) 1 (0.7-5.8) % Basophils % (Manual) 0 L (0.1-1.2) Manual Slide Review Platelet Estimate Adequate Anisocytosis 1+ slight RBC Morph Comment Not Reportable ESR (0-20) mm/hr PT (9.7-12.0) SECONDS INR Puncture Site Rt radial ABG pH 7.40 (7.35-7.45) ABG pCO2 28.5 L (35.0-45.0) mmHg ABG HCO3 17.3 L (22.0-26.0) meq/L ABG O2 Saturation 94.4 L (96.0-97.0) % ABG Base Excess -5.7 L (-2-2.0) Kamron Test Positive O2 Delivery Device Room air FiO2 0.00 L (21.00-100.00) % Sodium (136-145) mEq/L Potassium (3.5-5.1) mEq/L Chloride (98-107) mEq/L Carbon Dioxide (21-32) mEq/L Anion Gap (5-15) BUN (7-18) mg/dL Creatinine (0.55-1.02) mg/dL Est Cr Clr Drug Dosing mL/min Estimated GFR (MDRD) (>60) mL/min BUN/Creatinine Ratio (14-18) Glucose (80-115) mg/dL POC Glucose (80-115) mg/dL Hemoglobin A1c (4.50-6.20) % Serum Osmolality (280-300) mosm/kg Lactic Acid (0.4-2.0) mmol/L Calcium (8.5-10.1) mg/dL Phosphorus (2.6-4.7) mg/dL Magnesium (1.8-2.4) mg/dl Total Bilirubin (0.2-1.0) mg/dL Direct Bilirubin (0.0-0.2) mg/dl Indirect Bilirubin AST (15-37) U/L ALT (14-59) U/L Alkaline Phosphatase (46-116) U/L Troponin I (0.00-0.056) ng/mL C-Reactive Protein (<1.0) mg/dL NT-Pro-B Natriuret Pep (0-125) pg/mL Total Protein (6.4-8.2) g/dl Albumin (3.4-5.0) g/dl Globulin gm/dL Albumin/Globulin Ratio (1-2) TSH 3rd Generation (0.358-3.74) uIU/mL Urine Color Yellow (Yellow) Urine Appearance Clear (Clear) Urine pH 6.0 (5.0-8.0) Ur Specific [place] 1.020 (1.005-1.030) Urine Protein 1+ H (Negative) Urine Glucose (UA) 2+ H (Negative) Urine Ketones 2+ H (Negative) Urine Occult Blood 2+ H (Negative) Urine Nitrite Negative (Negative) Urine Bilirubin 1+ H (Negative) Urine Urobilinogen 0.2 (0.2-1.0) Ur Leukocyte Esterase Negative (Negative) Urine RBC 10-20 H (0-5) /hpf Urine WBC 0-5 (0-5) /hpf Ur Squamous Epith Cells 0-5 (0-5) /hpf Urine Bacteria Many H (FEW) /hpf Hyaline Casts 0-5 (0-5) /lpf Urine Mucus Few (FEW) /hpf Urine Osmolality (400-1100) mosm/kg Ur Random Creatinine (30.0-125.0) mg/dL U Random Total Protein (0.0-11.8) mg/dL Ur Random Sodium (40-220) mEq/L Protein/Creatinin Ratio (0-149) mg/g Ketones (0.0-0.3) mM 09/10/19 09/10/19 09/10/19 Range/Units 14:10 14:10 14:10 WBC (3.98-10.04) K/mm3 RBC (3.98-5.22) M/mm3 Hgb (11.2-15.7) gm/dl Hct (34.1-44.9) % MCV (79.4-94.8) fl MCH (25.6-32.2) pg MCHC (32.2-35.5) g/dl RDW Std Deviation (36.4-46.3) fL Plt Count (182-369) K/mm3 MPV (9.4-12.3) fl Neut % (Auto) (34.0-71.1) % Lymph % (Auto) (19.3-51.7) % [place] % (Auto) (4.7-12.5) % Eos % (Auto) (0.7-5.8) Baso % (Auto) (0.1-1.2) % Neut # (Auto) (1.56-6.13) K/mm3 Lymph # (Auto) (1.18-3.74) K/mm3 [place] # (Auto) (0.24-0.36) K/mm3 Eos # (Auto) (0.04-0.36) K/mm3 Baso # (Auto) (0.01-0.08) K/mm3 Neutrophils % (Manual) (40-60) % Band Neutrophils % (0-10) % Lymphocytes % (Manual) (20-40) % Atypical Lymphs % % Monocytes % (Manual) (2-10) % Eosinophils % (Manual) (0.7-5.8) % Basophils % (Manual) (0.1-1.2) Manual Slide Review Platelet Estimate Anisocytosis RBC Morph Comment ESR (0-20) mm/hr PT 13.9 H (9.7-12.0) SECONDS INR 1.29 Puncture Site ABG pH (7.35-7.45) ABG pCO2 (35.0-45.0) mmHg ABG HCO3 (22.0-26.0) meq/L ABG O2 Saturation (96.0-97.0) % ABG Base Excess (-2-2.0) Kamron Test O2 Delivery Device FiO2 (21.00-100.00) % Sodium (136-145) mEq/L Potassium (3.5-5.1) mEq/L Chloride (98-107) mEq/L Carbon Dioxide (21-32) mEq/L Anion Gap (5-15) BUN (7-18) mg/dL Creatinine (0.55-1.02) mg/dL Est Cr Clr Drug Dosing mL/min Estimated GFR (MDRD) (>60) mL/min BUN/Creatinine Ratio (14-18) Glucose (80-115) mg/dL POC Glucose (80-115) mg/dL Hemoglobin A1c (4.50-6.20) % Serum Osmolality 351 H (280-300) mosm/kg Lactic Acid 2.7 H* (0.4-2.0) mmol/L Calcium (8.5-10.1) mg/dL Phosphorus 4.8 H (2.6-4.7) mg/dL Magnesium 2.3 (1.8-2.4) mg/dl Total Bilirubin (0.2-1.0) mg/dL Direct Bilirubin (0.0-0.2) mg/dl Indirect Bilirubin AST (15-37) U/L ALT (14-59) U/L Alkaline Phosphatase (46-116) U/L Troponin I < 0.017 (0.00-0.056) ng/mL C-Reactive Protein 1.7 H* (<1.0) mg/dL NT-Pro-B Natriuret Pep (0-125) pg/mL Total Protein (6.4-8.2) g/dl Albumin (3.4-5.0) g/dl Globulin gm/dL Albumin/Globulin Ratio (1-2) TSH 3rd Generation 1.097 (0.358-3.74) uIU/mL Urine Color (Yellow) Urine Appearance (Clear) Urine pH (5.0-8.0) Ur Specific [place] (1.005-1.030) Urine Protein (Negative) Urine Glucose (UA) (Negative) Urine Ketones (Negative) Urine Occult Blood (Negative) Urine Nitrite (Negative) Urine Bilirubin (Negative) Urine Urobilinogen (0.2-1.0) Ur Leukocyte Esterase (Negative) Urine RBC (0-5) /hpf Urine WBC (0-5) /hpf Ur Squamous Epith Cells (0-5) /hpf Urine Bacteria (FEW) /hpf Hyaline Casts (0-5) /lpf Urine Mucus (FEW) /hpf Urine Osmolality (400-1100) mosm/kg Ur Random Creatinine (30.0-125.0) mg/dL U Random Total Protein (0.0-11.8) mg/dL Ur Random Sodium (40-220) mEq/L Protein/Creatinin Ratio (0-149) mg/g Ketones (0.0-0.3) mM 09/10/19 09/10/19 09/10/19 Range/Units 14:10 14:10 14:45 WBC (3.98-10.04) K/mm3 RBC (3.98-5.22) M/mm3 Hgb (11.2-15.7) gm/dl Hct (34.1-44.9) % MCV (79.4-94.8) fl MCH (25.6-32.2) pg MCHC (32.2-35.5) g/dl RDW Std Deviation (36.4-46.3) fL Plt Count (182-369) K/mm3 MPV (9.4-12.3) fl Neut % (Auto) (34.0-71.1) % Lymph % (Auto) (19.3-51.7) % [place] % (Auto) (4.7-12.5) % Eos % (Auto) (0.7-5.8) Baso % (Auto) (0.1-1.2) % Neut # (Auto) (1.56-6.13) K/mm3 Lymph # (Auto) (1.18-3.74) K/mm3 [place] # (Auto) (0.24-0.36) K/mm3 Eos # (Auto) (0.04-0.36) K/mm3 Baso # (Auto) (0.01-0.08) K/mm3 Neutrophils % (Manual) (40-60) % Band Neutrophils % (0-10) % Lymphocytes % (Manual) (20-40) % Atypical Lymphs % % Monocytes % (Manual) (2-10) % Eosinophils % (Manual) (0.7-5.8) % Basophils % (Manual) (0.1-1.2) Manual Slide Review Platelet Estimate Anisocytosis RBC Morph Comment ESR 20 (0-20) mm/hr PT (9.7-12.0) SECONDS INR Puncture Site ABG pH (7.35-7.45) ABG pCO2 (35.0-45.0) mmHg ABG HCO3 (22.0-26.0) meq/L ABG O2 Saturation (96.0-97.0) % ABG Base Excess (-2-2.0) Kamron Test O2 Delivery Device FiO2 (21.00-100.00) % Sodium (136-145) mEq/L Potassium (3.5-5.1) mEq/L Chloride (98-107) mEq/L Carbon Dioxide (21-32) mEq/L Anion Gap (5-15) BUN (7-18) mg/dL Creatinine (0.55-1.02) mg/dL Est Cr Clr Drug Dosing mL/min Estimated GFR (MDRD) (>60) mL/min BUN/Creatinine Ratio (14-18) Glucose (80-115) mg/dL POC Glucose (80-115) mg/dL Hemoglobin A1c 10.90 H (4.50-6.20) % Serum Osmolality (280-300) mosm/kg Lactic Acid (0.4-2.0) mmol/L Calcium (8.5-10.1) mg/dL Phosphorus (2.6-4.7) mg/dL Magnesium (1.8-2.4) mg/dl Total Bilirubin (0.2-1.0) mg/dL Direct Bilirubin (0.0-0.2) mg/dl Indirect Bilirubin AST (15-37) U/L ALT (14-59) U/L Alkaline Phosphatase (46-116) U/L Troponin I (0.00-0.056) ng/mL C-Reactive Protein (<1.0) mg/dL NT-Pro-B Natriuret Pep (0-125) pg/mL Total Protein (6.4-8.2) g/dl Albumin (3.4-5.0) g/dl Globulin gm/dL Albumin/Globulin Ratio (1-2) TSH 3rd Generation (0.358-3.74) uIU/mL Urine Color (Yellow) Urine Appearance (Clear) Urine pH (5.0-8.0) Ur Specific [place] (1.005-1.030) Urine Protein (Negative) Urine Glucose (UA) (Negative) Urine Ketones (Negative) Urine Occult Blood (Negative) Urine Nitrite (Negative) Urine Bilirubin (Negative) Urine Urobilinogen (0.2-1.0) Ur Leukocyte Esterase (Negative) Urine RBC (0-5) /hpf Urine WBC (0-5) /hpf Ur Squamous Epith Cells (0-5) /hpf Urine Bacteria (FEW) /hpf Hyaline Casts (0-5) /lpf Urine Mucus (FEW) /hpf Urine Osmolality (400-1100) mosm/kg Ur Random Creatinine (30.0-125.0) mg/dL U Random Total Protein (0.0-11.8) mg/dL Ur Random Sodium (40-220) mEq/L Protein/Creatinin Ratio (0-149) mg/g Ketones 14.52 (0.0-0.3) mM 09/10/19 09/10/19 09/10/19 Range/Units 16:44 16:44 18:07 WBC (3.98-10.04) K/mm3 RBC (3.98-5.22) M/mm3 Hgb (11.2-15.7) gm/dl Hct (34.1-44.9) % MCV (79.4-94.8) fl MCH (25.6-32.2) pg MCHC (32.2-35.5) g/dl RDW Std Deviation (36.4-46.3) fL Plt Count (182-369) K/mm3 MPV (9.4-12.3) fl Neut % (Auto) (34.0-71.1) % Lymph % (Auto) (19.3-51.7) % [place] % (Auto) (4.7-12.5) % Eos % (Auto) (0.7-5.8) Baso % (Auto) (0.1-1.2) % Neut # (Auto) (1.56-6.13) K/mm3 Lymph # (Auto) (1.18-3.74) K/mm3 [place] # (Auto) (0.24-0.36) K/mm3 Eos # (Auto) (0.04-0.36) K/mm3 Baso # (Auto) (0.01-0.08) K/mm3 Neutrophils % (Manual) (40-60) % Band Neutrophils % (0-10) % Lymphocytes % (Manual) (20-40) % Atypical Lymphs % % Monocytes % (Manual) (2-10) % Eosinophils % (Manual) (0.7-5.8) % Basophils % (Manual) (0.1-1.2) Manual Slide Review Platelet Estimate Anisocytosis RBC Morph Comment ESR (0-20) mm/hr PT (9.7-12.0) SECONDS INR Puncture Site ABG pH (7.35-7.45) ABG pCO2 (35.0-45.0) mmHg ABG HCO3 (22.0-26.0) meq/L ABG O2 Saturation (96.0-97.0) % ABG Base Excess (-2-2.0) Kamron Test O2 Delivery Device FiO2 (21.00-100.00) % Sodium 147 H (136-145) mEq/L Potassium 2.7 L (3.5-5.1) mEq/L Chloride 102 (98-107) mEq/L Carbon Dioxide 18 L (21-32) mEq/L Anion Gap 29.7 H (5-15) BUN 27 H (7-18) mg/dL Creatinine 1.4 H (0.55-1.02) mg/dL Est Cr Clr Drug Dosing 37.49 mL/min Estimated GFR (MDRD) 38 (>60) mL/min BUN/Creatinine Ratio 19.3 H (14-18) Glucose 430 H (80-115) mg/dL POC Glucose (80-115) mg/dL Hemoglobin A1c (4.50-6.20) % Serum Osmolality (280-300) mosm/kg Lactic Acid 2.9 H* (0.4-2.0) mmol/L Calcium 8.4 L (8.5-10.1) mg/dL Phosphorus (2.6-4.7) mg/dL Magnesium 2.0 (1.8-2.4) mg/dl Total Bilirubin (0.2-1.0) mg/dL Direct Bilirubin (0.0-0.2) mg/dl Indirect Bilirubin AST (15-37) U/L ALT (14-59) U/L Alkaline Phosphatase (46-116) U/L Troponin I (0.00-0.056) ng/mL C-Reactive Protein (<1.0) mg/dL NT-Pro-B Natriuret Pep (0-125) pg/mL Total Protein (6.4-8.2) g/dl Albumin (3.4-5.0) g/dl Globulin gm/dL Albumin/Globulin Ratio (1-2) TSH 3rd Generation (0.358-3.74) uIU/mL Urine Color (Yellow) Urine Appearance (Clear) Urine pH (5.0-8.0) Ur Specific [place] (1.005-1.030) Urine Protein (Negative) Urine Glucose (UA) (Negative) Urine Ketones (Negative) Urine Occult Blood (Negative) Urine Nitrite (Negative) Urine Bilirubin (Negative) Urine Urobilinogen (0.2-1.0) Ur Leukocyte Esterase (Negative) Urine RBC (0-5) /hpf Urine WBC (0-5) /hpf Ur Squamous Epith Cells (0-5) /hpf Urine Bacteria (FEW) /hpf Hyaline Casts (0-5) /lpf Urine Mucus (FEW) /hpf Urine Osmolality (400-1100) mosm/kg Ur Random Creatinine (30.0-125.0) mg/dL U Random Total Protein (0.0-11.8) mg/dL Ur Random Sodium 19 L (40-220) mEq/L Protein/Creatinin Ratio (0-149) mg/g Ketones (0.0-0.3) mM 09/10/19 09/10/19 09/10/19 Range/Units 18:46 18:48 19:51 WBC (3.98-10.04) K/mm3 RBC (3.98-5.22) M/mm3 Hgb (11.2-15.7) gm/dl Hct (34.1-44.9) % MCV (79.4-94.8) fl MCH (25.6-32.2) pg MCHC (32.2-35.5) g/dl RDW Std Deviation (36.4-46.3) fL Plt Count (182-369) K/mm3 MPV (9.4-12.3) fl Neut % (Auto) (34.0-71.1) % Lymph % (Auto) (19.3-51.7) % [place] % (Auto) (4.7-12.5) % Eos % (Auto) (0.7-5.8) Baso % (Auto) (0.1-1.2) % Neut # (Auto) (1.56-6.13) K/mm3 Lymph # (Auto) (1.18-3.74) K/mm3 [place] # (Auto) (0.24-0.36) K/mm3 Eos # (Auto) (0.04-0.36) K/mm3 Baso # (Auto) (0.01-0.08) K/mm3 Neutrophils % (Manual) (40-60) % Band Neutrophils % (0-10) % Lymphocytes % (Manual) (20-40) % Atypical Lymphs % % Monocytes % (Manual) (2-10) % Eosinophils % (Manual) (0.7-5.8) % Basophils % (Manual) (0.1-1.2) Manual Slide Review Platelet Estimate Anisocytosis RBC Morph Comment ESR (0-20) mm/hr PT (9.7-12.0) SECONDS INR Puncture Site ABG pH (7.35-7.45) ABG pCO2 (35.0-45.0) mmHg ABG HCO3 (22.0-26.0) meq/L ABG O2 Saturation (96.0-97.0) % ABG Base Excess (-2-2.0) Kamron Test O2 Delivery Device FiO2 (21.00-100.00) % Sodium (136-145) mEq/L Potassium (3.5-5.1) mEq/L Chloride (98-107) mEq/L Carbon Dioxide (21-32) mEq/L Anion Gap (5-15) BUN (7-18) mg/dL Creatinine (0.55-1.02) mg/dL Est Cr Clr Drug Dosing mL/min Estimated GFR (MDRD) (>60) mL/min BUN/Creatinine Ratio (14-18) Glucose (80-115) mg/dL POC Glucose 362 H 363 H (80-115) mg/dL Hemoglobin A1c (4.50-6.20) % Serum Osmolality (280-300) mosm/kg Lactic Acid (0.4-2.0) mmol/L Calcium (8.5-10.1) mg/dL Phosphorus (2.6-4.7) mg/dL Magnesium (1.8-2.4) mg/dl Total Bilirubin (0.2-1.0) mg/dL Direct Bilirubin (0.0-0.2) mg/dl Indirect Bilirubin AST (15-37) U/L ALT (14-59) U/L Alkaline Phosphatase (46-116) U/L Troponin I (0.00-0.056) ng/mL C-Reactive Protein (<1.0) mg/dL NT-Pro-B Natriuret Pep (0-125) pg/mL Total Protein (6.4-8.2) g/dl Albumin (3.4-5.0) g/dl Globulin gm/dL Albumin/Globulin Ratio (1-2) TSH 3rd Generation (0.358-3.74) uIU/mL Urine Color (Yellow) Urine Appearance (Clear) Urine pH (5.0-8.0) Ur Specific [place] (1.005-1.030) Urine Protein (Negative) Urine Glucose (UA) (Negative) Urine Ketones (Negative) Urine Occult Blood (Negative) Urine Nitrite (Negative) Urine Bilirubin (Negative) Urine Urobilinogen (0.2-1.0) Ur Leukocyte Esterase (Negative) Urine RBC (0-5) /hpf Urine WBC (0-5) /hpf Ur Squamous Epith Cells (0-5) /hpf Urine Bacteria (FEW) /hpf Hyaline Casts (0-5) /lpf Urine Mucus (FEW) /hpf Urine Osmolality 701 (400-1100) mosm/kg Ur Random Creatinine 42.3 (30.0-125.0) mg/dL U Random Total Protein 116.0 H (0.0-11.8) mg/dL Ur Random Sodium (40-220) mEq/L Protein/Creatinin Ratio 2742.3 H (0-149) mg/g Ketones (0.0-0.3) mM 09/10/19 09/10/19 09/10/19 Range/Units 20:54 21:00 21:00 WBC (3.98-10.04) K/mm3 RBC (3.98-5.22) M/mm3 Hgb (11.2-15.7) gm/dl Hct (34.1-44.9) % MCV (79.4-94.8) fl MCH (25.6-32.2) pg MCHC (32.2-35.5) g/dl RDW Std Deviation (36.4-46.3) fL Plt Count (182-369) K/mm3 MPV (9.4-12.3) fl Neut % (Auto) (34.0-71.1) % Lymph % (Auto) (19.3-51.7) % [place] % (Auto) (4.7-12.5) % Eos % (Auto) (0.7-5.8) Baso % (Auto) (0.1-1.2) % Neut # (Auto) (1.56-6.13) K/mm3 Lymph # (Auto) (1.18-3.74) K/mm3 [place] # (Auto) (0.24-0.36) K/mm3 Eos # (Auto) (0.04-0.36) K/mm3 Baso # (Auto) (0.01-0.08) K/mm3 Neutrophils % (Manual) (40-60) % Band Neutrophils % (0-10) % Lymphocytes % (Manual) (20-40) % Atypical Lymphs % % Monocytes % (Manual) (2-10) % Eosinophils % (Manual) (0.7-5.8) % Basophils % (Manual) (0.1-1.2) Manual Slide Review Platelet Estimate Anisocytosis RBC Morph Comment ESR (0-20) mm/hr PT (9.7-12.0) SECONDS INR Puncture Site ABG pH (7.35-7.45) ABG pCO2 (35.0-45.0) mmHg ABG HCO3 (22.0-26.0) meq/L ABG O2 Saturation (96.0-97.0) % ABG Base Excess (-2-2.0) [place]ron Test O2 Delivery Device FiO2 (21.00-100.00) % Sodium 149 H (136-145) mEq/L Potassium 2.6 L (3.5-5.1) mEq/L Chloride 106 (98-107) mEq/L Carbon Dioxide 29 D (21-32) mEq/L Anion Gap 16.6 H (5-15) BUN 26 H (7-18) mg/dL Creatinine 1.3 H (0.55-1.02) mg/dL Est Cr Clr Drug Dosing 40.38 mL/min Estimated GFR (MDRD) 42 (>60) mL/min BUN/Creatinine Ratio 20.0 H (14-18) Glucose 235 H (80-115) mg/dL POC Glucose 237 H (80-115) mg/dL Hemoglobin A1c (4.50-6.20) % Serum Osmolality (280-300) mosm/kg Lactic Acid 2.1 H* (0.4-2.0) mmol/L Calcium 8.1 L (8.5-10.1) mg/dL Phosphorus (2.6-4.7) mg/dL Magnesium 1.9 (1.8-2.4) mg/dl Total Bilirubin (0.2-1.0) mg/dL Direct Bilirubin (0.0-0.2) mg/dl Indirect Bilirubin AST (15-37) U/L ALT (14-59) U/L Alkaline Phosphatase (46-116) U/L Troponin I (0.00-0.056) ng/mL C-Reactive Protein (<1.0) mg/dL NT-Pro-B Natriuret Pep (0-125) pg/mL Total Protein (6.4-8.2) g/dl Albumin (3.4-5.0) g/dl Globulin gm/dL Albumin/Globulin Ratio (1-2) TSH 3rd Generation (0.358-3.74) uIU/mL Urine Color (Yellow) Urine Appearance (Clear) Urine pH (5.0-8.0) Ur Specific [place] (1.005-1.030) Urine Protein (Negative) Urine Glucose (UA) (Negative) Urine Ketones (Negative) Urine Occult Blood (Negative) Urine Nitrite (Negative) Urine Bilirubin (Negative) Urine Urobilinogen (0.2-1.0) Ur Leukocyte Esterase (Negative) Urine RBC (0-5) /hpf Urine WBC (0-5) /hpf Ur Squamous Epith Cells (0-5) /hpf Urine Bacteria (FEW) /hpf Hyaline Casts (0-5) /lpf Urine Mucus (FEW) /hpf Urine Osmolality (400-1100) mosm/kg Ur Random Creatinine (30.0-125.0) mg/dL U Random Total Protein (0.0-11.8) mg/dL Ur Random Sodium (40-220) mEq/L Protein/Creatinin Ratio (0-149) mg/g Ketones (0.0-0.3) mM 09/10/19 09/10/19 09/10/19 Range/Units 21:54 22:53 23:48 WBC (3.98-10.04) K/mm3 RBC (3.98-5.22) M/mm3 Hgb (11.2-15.7) gm/dl Hct (34.1-44.9) % MCV (79.4-94.8) fl MCH (25.6-32.2) pg MCHC (32.2-35.5) g/dl RDW Std Deviation (36.4-46.3) fL Plt Count (182-369) K/mm3 MPV (9.4-12.3) fl Neut % (Auto) (34.0-71.1) % Lymph % (Auto) (19.3-51.7) % [place] % (Auto) (4.7-12.5) % Eos % (Auto) (0.7-5.8) Baso % (Auto) (0.1-1.2) % Neut # (Auto) (1.56-6.13) K/mm3 Lymph # (Auto) (1.18-3.74) K/mm3 [place] # (Auto) (0.24-0.36) K/mm3 Eos # (Auto) (0.04-0.36) K/mm3 Baso # (Auto) (0.01-0.08) K/mm3 Neutrophils % (Manual) (40-60) % Band Neutrophils % (0-10) % Lymphocytes % (Manual) (20-40) % Atypical Lymphs % % Monocytes % (Manual) (2-10) % Eosinophils % (Manual) (0.7-5.8) % Basophils % (Manual) (0.1-1.2) Manual Slide Review Platelet Estimate Anisocytosis RBC Morph Comment ESR (0-20) mm/hr PT (9.7-12.0) SECONDS INR Puncture Site ABG pH (7.35-7.45) ABG pCO2 (35.0-45.0) mmHg ABG HCO3 (22.0-26.0) meq/L ABG O2 Saturation (96.0-97.0) % ABG Base Excess (-2-2.0) [place] Test O2 Delivery Device FiO2 (21.00-100.00) % Sodium (136-145) mEq/L Potassium (3.5-5.1) mEq/L Chloride (98-107) mEq/L Carbon Dioxide (21-32) mEq/L Anion Gap (5-15) BUN (7-18) mg/dL Creatinine (0.55-1.02) mg/dL Est Cr Clr Drug Dosing mL/min Estimated GFR (MDRD) (>60) mL/min BUN/Creatinine Ratio (14-18) Glucose (80-115) mg/dL POC Glucose 247 H 221 H 265 H (80-115) mg/dL Hemoglobin A1c (4.50-6.20) % Serum Osmolality (280-300) mosm/kg Lactic Acid (0.4-2.0) mmol/L Calcium (8.5-10.1) mg/dL Phosphorus (2.6-4.7) mg/dL Magnesium (1.8-2.4) mg/dl Total Bilirubin (0.2-1.0) mg/dL Direct Bilirubin (0.0-0.2) mg/dl Indirect Bilirubin AST (15-37) U/L ALT (14-59) U/L Alkaline Phosphatase (46-116) U/L Troponin I (0.00-0.056) ng/mL C-Reactive Protein (<1.0) mg/dL NT-Pro-B Natriuret Pep (0-125) pg/mL Total Protein (6.4-8.2) g/dl Albumin (3.4-5.0) g/dl Globulin gm/dL Albumin/Globulin Ratio (1-2) TSH 3rd Generation (0.358-3.74) uIU/mL Urine Color (Yellow) Urine Appearance (Clear) Urine pH (5.0-8.0) Ur Specific [place] (1.005-1.030) Urine Protein (Negative) Urine Glucose (UA) (Negative) Urine Ketones (Negative) Urine Occult Blood (Negative) Urine Nitrite (Negative) Urine Bilirubin (Negative) Urine Urobilinogen (0.2-1.0) Ur Leukocyte Esterase (Negative) Urine RBC (0-5) /hpf Urine WBC (0-5) /hpf Ur Squamous Epith Cells (0-5) /hpf Urine Bacteria (FEW) /hpf Hyaline Casts (0-5) /lpf Urine Mucus (FEW) /hpf Urine Osmolality (400-1100) mosm/kg Ur Random Creatinine (30.0-125.0) mg/dL U Random Total Protein (0.0-11.8) mg/dL Ur Random Sodium (40-220) mEq/L Protein/Creatinin Ratio (0-149) mg/g Ketones (0.0-0.3) mM 09/11/19 09/11/19 09/11/19 Range/Units 00:53 01:10 01:10 WBC (3.98-10.04) K/mm3 RBC (3.98-5.22) M/mm3 Hgb (11.2-15.7) gm/dl Hct (34.1-44.9) % MCV (79.4-94.8) fl MCH (25.6-32.2) pg MCHC (32.2-35.5) g/dl RDW Std Deviation (36.4-46.3) fL Plt Count (182-369) K/mm3 MPV (9.4-12.3) fl Neut % (Auto) (34.0-71.1) % Lymph % (Auto) (19.3-51.7) % [place] % (Auto) (4.7-12.5) % Eos % (Auto) (0.7-5.8) Baso % (Auto) (0.1-1.2) % Neut # (Auto) (1.56-6.13) K/mm3 Lymph # (Auto) (1.18-3.74) K/mm3 [place] # (Auto) (0.24-0.36) K/mm3 Eos # (Auto) (0.04-0.36) K/mm3 Baso # (Auto) (0.01-0.08) K/mm3 Neutrophils % (Manual) (40-60) % Band Neutrophils % (0-10) % Lymphocytes % (Manual) (20-40) % Atypical Lymphs % % Monocytes % (Manual) (2-10) % Eosinophils % (Manual) (0.7-5.8) % Basophils % (Manual) (0.1-1.2) Manual Slide Review Platelet Estimate Anisocytosis RBC Morph Comment ESR (0-20) mm/hr PT (9.7-12.0) SECONDS INR Puncture Site ABG pH (7.35-7.45) ABG pCO2 (35.0-45.0) mmHg ABG HCO3 (22.0-26.0) meq/L ABG O2 Saturation (96.0-97.0) % ABG Base Excess (-2-2.0) Kamron Test O2 Delivery Device FiO2 (21.00-100.00) % Sodium 147 H (136-145) mEq/L Potassium 3.2 L (3.5-5.1) mEq/L Chloride 106 (98-107) mEq/L Carbon Dioxide 33 H (21-32) mEq/L Anion Gap 11.2 (5-15) BUN 24 H (7-18) mg/dL Creatinine 1.3 H (0.55-1.02) mg/dL Est Cr Clr Drug Dosing 40.38 mL/min Estimated GFR (MDRD) 42 (>60) mL/min BUN/Creatinine Ratio 18.5 H (14-18) Glucose 200 H (80-115) mg/dL POC Glucose 218 H (80-115) mg/dL Hemoglobin A1c (4.50-6.20) % Serum Osmolality (280-300) mosm/kg Lactic Acid 2.2 H* (0.4-2.0) mmol/L Calcium 7.9 L (8.5-10.1) mg/dL Phosphorus (2.6-4.7) mg/dL Magnesium 1.7 L (1.8-2.4) mg/dl Total Bilirubin (0.2-1.0) mg/dL Direct Bilirubin (0.0-0.2) mg/dl Indirect Bilirubin AST (15-37) U/L ALT (14-59) U/L Alkaline Phosphatase (46-116) U/L Troponin I (0.00-0.056) ng/mL C-Reactive Protein (<1.0) mg/dL NT-Pro-B Natriuret Pep (0-125) pg/mL Total Protein (6.4-8.2) g/dl Albumin (3.4-5.0) g/dl Globulin gm/dL Albumin/Globulin Ratio (1-2) TSH 3rd Generation (0.358-3.74) uIU/mL Urine Color (Yellow) Urine Appearance (Clear) Urine pH (5.0-8.0) Ur Specific [place] (1.005-1.030) Urine Protein (Negative) Urine Glucose (UA) (Negative) Urine Ketones (Negative) Urine Occult Blood (Negative) Urine Nitrite (Negative) Urine Bilirubin (Negative) Urine Urobilinogen (0.2-1.0) Ur Leukocyte Esterase (Negative) Urine RBC (0-5) /hpf Urine WBC (0-5) /hpf Ur Squamous Epith Cells (0-5) /hpf Urine Bacteria (FEW) /hpf Hyaline Casts (0-5) /lpf Urine Mucus (FEW) /hpf Urine Osmolality (400-1100) mosm/kg Ur Random Creatinine (30.0-125.0) mg/dL U Random Total Protein (0.0-11.8) mg/dL Ur Random Sodium (40-220) mEq/L Protein/Creatinin Ratio (0-149) mg/g Ketones (0.0-0.3) mM 09/11/19 09/11/19 09/11/19 Range/Units 02:01 02:53 04:08 WBC (3.98-10.04) K/mm3 RBC (3.98-5.22) M/mm3 Hgb (11.2-15.7) gm/dl Hct (34.1-44.9) % MCV (79.4-94.8) fl MCH (25.6-32.2) pg MCHC (32.2-35.5) g/dl RDW Std Deviation (36.4-46.3) fL Plt Count (182-369) K/mm3 MPV (9.4-12.3) fl Neut % (Auto) (34.0-71.1) % Lymph % (Auto) (19.3-51.7) % [place] % (Auto) (4.7-12.5) % Eos % (Auto) (0.7-5.8) Baso % (Auto) (0.1-1.2) % Neut # (Auto) (1.56-6.13) K/mm3 Lymph # (Auto) (1.18-3.74) K/mm3 [place] # (Auto) (0.24-0.36) K/mm3 Eos # (Auto) (0.04-0.36) K/mm3 Baso # (Auto) (0.01-0.08) K/mm3 Neutrophils % (Manual) (40-60) % Band Neutrophils % (0-10) % Lymphocytes % (Manual) (20-40) % Atypical Lymphs % % Monocytes % (Manual) (2-10) % Eosinophils % (Manual) (0.7-5.8) % Basophils % (Manual) (0.1-1.2) Manual Slide Review Platelet Estimate Anisocytosis RBC Morph Comment ESR (0-20) mm/hr PT (9.7-12.0) SECONDS INR Puncture Site ABG pH (7.35-7.45) ABG pCO2 (35.0-45.0) mmHg ABG HCO3 (22.0-26.0) meq/L ABG O2 Saturation (96.0-97.0) % ABG Base Excess (-2-2.0) Kamron Test O2 Delivery Device FiO2 (21.00-100.00) % Sodium (136-145) mEq/L Potassium (3.5-5.1) mEq/L Chloride (98-107) mEq/L Carbon Dioxide (21-32) mEq/L Anion Gap (5-15) BUN (7-18) mg/dL Creatinine (0.55-1.02) mg/dL Est Cr Clr Drug Dosing mL/min Estimated GFR (MDRD) (>60) mL/min BUN/Creatinine Ratio (14-18) Glucose (80-115) mg/dL POC Glucose 189 H 201 H 236 H (80-115) mg/dL Hemoglobin A1c (4.50-6.20) % Serum Osmolality (280-300) mosm/kg Lactic Acid (0.4-2.0) mmol/L Calcium (8.5-10.1) mg/dL Phosphorus (2.6-4.7) mg/dL Magnesium (1.8-2.4) mg/dl Total Bilirubin (0.2-1.0) mg/dL Direct Bilirubin (0.0-0.2) mg/dl Indirect Bilirubin AST (15-37) U/L ALT (14-59) U/L Alkaline Phosphatase (46-116) U/L Troponin I (0.00-0.056) ng/mL C-Reactive Protein (<1.0) mg/dL NT-Pro-B Natriuret Pep (0-125) pg/mL Total Protein (6.4-8.2) g/dl Albumin (3.4-5.0) g/dl Globulin gm/dL Albumin/Globulin Ratio (1-2) TSH 3rd Generation (0.358-3.74) uIU/mL Urine Color (Yellow) Urine Appearance (Clear) Urine pH (5.0-8.0) Ur Specific [place] (1.005-1.030) Urine Protein (Negative) Urine Glucose (UA) (Negative) Urine Ketones (Negative) Urine Occult Blood (Negative) Urine Nitrite (Negative) Urine Bilirubin (Negative) Urine Urobilinogen (0.2-1.0) Ur Leukocyte Esterase (Negative) Urine RBC (0-5) /hpf Urine WBC (0-5) /hpf Ur Squamous Epith Cells (0-5) /hpf Urine Bacteria (FEW) /hpf Hyaline Casts (0-5) /lpf Urine Mucus (FEW) /hpf Urine Osmolality (400-1100) mosm/kg Ur Random Creatinine (30.0-125.0) mg/dL U Random Total Protein (0.0-11.8) mg/dL Ur Random Sodium (40-220) mEq/L Protein/Creatinin Ratio (0-149) mg/g Ketones (0.0-0.3) mM 09/11/19 09/11/19 09/11/19 Range/Units 04:58 05:20 05:20 WBC 11.12 H (3.98-10.04) K/mm3 RBC 4.71 (3.98-5.22) M/mm3 Hgb 13.3 D (11.2-15.7) gm/dl Hct 39.7 (34.1-44.9) % MCV 84.3 (79.4-94.8) fl MCH 28.2 (25.6-32.2) pg MCHC 33.5 (32.2-35.5) g/dl RDW Std Deviation 43.7 (36.4-46.3) fL Plt Count 143 L D (182-369) K/mm3 MPV 12.2 (9.4-12.3) fl Neut % (Auto) 74.6 H (34.0-71.1) % Lymph % (Auto) 16.4 L (19.3-51.7) % [place] % (Auto) 8.5 (4.7-12.5) % Eos % (Auto) 0.2 L (0.7-5.8) Baso % (Auto) 0.1 (0.1-1.2) % Neut # (Auto) 8.31 H (1.56-6.13) K/mm3 Lymph # (Auto) 1.82 (1.18-3.74) K/mm3 [place] # (Auto) 0.94 H (0.24-0.36) K/mm3 Eos # (Auto) 0.02 L (0.04-0.36) K/mm3 Baso # (Auto) 0.01 (0.01-0.08) K/mm3 Neutrophils % (Manual) (40-60) % Band Neutrophils % (0-10) % Lymphocytes % (Manual) (20-40) % Atypical Lymphs % % Monocytes % (Manual) (2-10) % Eosinophils % (Manual) (0.7-5.8) % Basophils % (Manual) (0.1-1.2) Manual Slide Review Platelet Estimate Anisocytosis RBC Morph Comment ESR (0-20) mm/hr PT (9.7-12.0) SECONDS INR Puncture Site ABG pH (7.35-7.45) ABG pCO2 (35.0-45.0) mmHg ABG HCO3 (22.0-26.0) meq/L ABG O2 Saturation (96.0-97.0) % ABG Base Excess (-2-2.0) Kamron Test O2 Delivery Device FiO2 (21.00-100.00) % Sodium 139 (136-145) mEq/L Potassium 3.5 (3.5-5.1) mEq/L Chloride 104 (98-107) mEq/L Carbon Dioxide 32 (21-32) mEq/L Anion Gap 6.5 (5-15) BUN 22 H (7-18) mg/dL Creatinine 1.2 H (0.55-1.02) mg/dL Est Cr Clr Drug Dosing 43.74 mL/min Estimated GFR (MDRD) 46 (>60) mL/min BUN/Creatinine Ratio 18.3 H (14-18) Glucose 248 H (80-115) mg/dL POC Glucose 242 H (80-115) mg/dL Hemoglobin A1c (4.50-6.20) % Serum Osmolality (280-300) mosm/kg Lactic Acid (0.4-2.0) mmol/L Calcium 8.0 L (8.5-10.1) mg/dL Phosphorus (2.6-4.7) mg/dL Magnesium 1.8 (1.8-2.4) mg/dl Total Bilirubin (0.2-1.0) mg/dL Direct Bilirubin (0.0-0.2) mg/dl Indirect Bilirubin AST (15-37) U/L ALT (14-59) U/L Alkaline Phosphatase (46-116) U/L Troponin I (0.00-0.056) ng/mL C-Reactive Protein (<1.0) mg/dL NT-Pro-B Natriuret Pep (0-125) pg/mL Total Protein (6.4-8.2) g/dl Albumin (3.4-5.0) g/dl Globulin gm/dL Albumin/Globulin Ratio (1-2) TSH 3rd Generation (0.358-3.74) uIU/mL Urine Color (Yellow) Urine Appearance (Clear) Urine pH (5.0-8.0) Ur Specific [place] (1.005-1.030) Urine Protein (Negative) Urine Glucose (UA) (Negative) Urine Ketones (Negative) Urine Occult Blood (Negative) Urine Nitrite (Negative) Urine Bilirubin (Negative) Urine Urobilinogen (0.2-1.0) Ur Leukocyte Esterase (Negative) Urine RBC (0-5) /hpf Urine WBC (0-5) /hpf Ur Squamous Epith Cells (0-5) /hpf Urine Bacteria (FEW) /hpf Hyaline Casts (0-5) /lpf Urine Mucus (FEW) /hpf Urine Osmolality (400-1100) mosm/kg Ur Random Creatinine (30.0-125.0) mg/dL U Random Total Protein (0.0-11.8) mg/dL Ur Random Sodium (40-220) mEq/L Protein/Creatinin Ratio (0-149) mg/g Ketones (0.0-0.3) mM 09/11/19 09/11/19 09/11/19 Range/Units 05:20 05:20 05:54 WBC (3.98-10.04) K/mm3 RBC (3.98-5.22) M/mm3 Hgb (11.2-15.7) gm/dl Hct (34.1-44.9) % MCV (79.4-94.8) fl MCH (25.6-32.2) pg MCHC (32.2-35.5) g/dl RDW Std Deviation (36.4-46.3) fL Plt Count (182-369) K/mm3 MPV (9.4-12.3) fl Neut % (Auto) (34.0-71.1) % Lymph % (Auto) (19.3-51.7) % [place] % (Auto) (4.7-12.5) % Eos % (Auto) (0.7-5.8) Baso % (Auto) (0.1-1.2) % Neut # (Auto) (1.56-6.13) K/mm3 Lymph # (Auto) (1.18-3.74) K/mm3 [place] # (Auto) (0.24-0.36) K/mm3 Eos # (Auto) (0.04-0.36) K/mm3 Baso # (Auto) (0.01-0.08) K/mm3 Neutrophils % (Manual) (40-60) % Band Neutrophils % (0-10) % Lymphocytes % (Manual) (20-40) % Atypical Lymphs % % Monocytes % (Manual) (2-10) % Eosinophils % (Manual) (0.7-5.8) % Basophils % (Manual) (0.1-1.2) Manual Slide Review Platelet Estimate Anisocytosis RBC Morph Comment ESR (0-20) mm/hr PT (9.7-12.0) SECONDS INR Puncture Site ABG pH (7.35-7.45) ABG pCO2 (35.0-45.0) mmHg ABG HCO3 (22.0-26.0) meq/L ABG O2 Saturation (96.0-97.0) % ABG Base Excess (-2-2.0) Kamron Test O2 Delivery Device FiO2 (21.00-100.00) % Sodium (136-145) mEq/L Potassium (3.5-5.1) mEq/L Chloride (98-107) mEq/L Carbon Dioxide (21-32) mEq/L Anion Gap (5-15) BUN (7-18) mg/dL Creatinine (0.55-1.02) mg/dL Est Cr Clr Drug Dosing mL/min Estimated GFR (MDRD) (>60) mL/min BUN/Creatinine Ratio (14-18) Glucose (80-115) mg/dL POC Glucose 309 H (80-115) mg/dL Hemoglobin A1c (4.50-6.20) % Serum Osmolality (280-300) mosm/kg Lactic Acid 1.9 (0.4-2.0) mmol/L Calcium (8.5-10.1) mg/dL Phosphorus 1.6 L (2.6-4.7) mg/dL Magnesium (1.8-2.4) mg/dl Total Bilirubin 0.4 (0.2-1.0) mg/dL Direct Bilirubin 0.20 (0.0-0.2) mg/dl Indirect Bilirubin 0.20 AST 33 (15-37) U/L ALT 42 (14-59) U/L Alkaline Phosphatase 155 H (46-116) U/L Troponin I (0.00-0.056) ng/mL C-Reactive Protein (<1.0) mg/dL NT-Pro-B Natriuret Pep (0-125) pg/mL Total Protein 5.7 L (6.4-8.2) g/dl Albumin 2.0 L (3.4-5.0) g/dl Globulin 3.7 gm/dL Albumin/Globulin Ratio 0.5 L (1-2) TSH 3rd Generation (0.358-3.74) uIU/mL Urine Color (Yellow) Urine Appearance (Clear) Urine pH (5.0-8.0) Ur Specific [place] (1.005-1.030) Urine Protein (Negative) Urine Glucose (UA) (Negative) Urine Ketones (Negative) Urine Occult Blood (Negative) Urine Nitrite (Negative) Urine Bilirubin (Negative) Urine Urobilinogen (0.2-1.0) Ur Leukocyte Esterase (Negative) Urine RBC (0-5) /hpf Urine WBC (0-5) /hpf Ur Squamous Epith Cells (0-5) /hpf Urine Bacteria (FEW) /hpf Hyaline Casts (0-5) /lpf Urine Mucus (FEW) /hpf Urine Osmolality (400-1100) mosm/kg Ur Random Creatinine (30.0-125.0) mg/dL U Random Total Protein (0.0-11.8) mg/dL Ur Random Sodium (40-220) mEq/L Protein/Creatinin Ratio (0-149) mg/g Ketones (0.0-0.3) mM 09/11/19 Range/Units 06:44 WBC (3.98-10.04) K/mm3 RBC (3.98-5.22) M/mm3 Hgb (11.2-15.7) gm/dl Hct (34.1-44.9) % MCV (79.4-94.8) fl MCH (25.6-32.2) pg MCHC (32.2-35.5) g/dl RDW Std Deviation (36.4-46.3) fL Plt Count (182-369) K/mm3 MPV (9.4-12.3) fl Neut % (Auto) (34.0-71.1) % Lymph % (Auto) (19.3-51.7) % [place] % (Auto) (4.7-12.5) % Eos % (Auto) (0.7-5.8) Baso % (Auto) (0.1-1.2) % Neut # (Auto) (1.56-6.13) K/mm3 Lymph # (Auto) (1.18-3.74) K/mm3 [place] # (Auto) (0.24-0.36) K/mm3 Eos # (Auto) (0.04-0.36) K/mm3 Baso # (Auto) (0.01-0.08) K/mm3 Neutrophils % (Manual) (40-60) % Band Neutrophils % (0-10) % Lymphocytes % (Manual) (20-40) % Atypical Lymphs % % Monocytes % (Manual) (2-10) % Eosinophils % (Manual) (0.7-5.8) % Basophils % (Manual) (0.1-1.2) Manual Slide Review Platelet Estimate Anisocytosis RBC Morph Comment ESR (0-20) mm/hr PT (9.7-12.0) SECONDS INR Puncture Site ABG pH (7.35-7.45) ABG pCO2 (35.0-45.0) mmHg ABG HCO3 (22.0-26.0) meq/L ABG O2 Saturation (96.0-97.0) % ABG Base Excess (-2-2.0) Kamron Test O2 Delivery Device FiO2 (21.00-100.00) % Sodium (136-145) mEq/L Potassium (3.5-5.1) mEq/L Chloride (98-107) mEq/L Carbon Dioxide (21-32) mEq/L Anion Gap (5-15) BUN (7-18) mg/dL Creatinine (0.55-1.02) mg/dL Est Cr Clr Drug Dosing mL/min Estimated GFR (MDRD) (>60) mL/min BUN/Creatinine Ratio (14-18) Glucose (80-115) mg/dL POC Glucose 274 H (80-115) mg/dL Hemoglobin A1c (4.50-6.20) % Serum Osmolality (280-300) mosm/kg Lactic Acid (0.4-2.0) mmol/L Calcium (8.5-10.1) mg/dL Phosphorus (2.6-4.7) mg/dL Magnesium (1.8-2.4) mg/dl Total Bilirubin (0.2-1.0) mg/dL Direct Bilirubin (0.0-0.2) mg/dl Indirect Bilirubin AST (15-37) U/L ALT (14-59) U/L Alkaline Phosphatase (46-116) U/L Troponin I (0.00-0.056) ng/mL C-Reactive Protein (<1.0) mg/dL NT-Pro-B Natriuret Pep (0-125) pg/mL Total Protein (6.4-8.2) g/dl Albumin (3.4-5.0) g/dl Globulin gm/dL Albumin/Globulin Ratio (1-2) TSH 3rd Generation (0.358-3.74) uIU/mL Urine Color (Yellow) Urine Appearance (Clear) Urine pH (5.0-8.0) Ur Specific [place] (1.005-1.030) Urine Protein (Negative) Urine Glucose (UA) (Negative) Urine Ketones (Negative) Urine Occult Blood (Negative) Urine Nitrite (Negative) Urine Bilirubin (Negative) Urine Urobilinogen (0.2-1.0) Ur Leukocyte Esterase (Negative) Urine RBC (0-5) /hpf Urine WBC (0-5) /hpf Ur Squamous Epith Cells (0-5) /hpf Urine Bacteria (FEW) /hpf Hyaline Casts (0-5) /lpf Urine Mucus (FEW) /hpf Urine Osmolality (400-1100) mosm/kg Ur Random Creatinine (30.0-125.0) mg/dL U Random Total Protein (0.0-11.8) mg/dL Ur Random Sodium (40-220) mEq/L Protein/Creatinin Ratio (0-149) mg/g Ketones (0.0-0.3) mM Jerrod Results Last 24 Hours: Microbiology 09/10/19 14:10 Anaerobic Blood Culture - Final Blood - Venous 09/10/19 23:32 Influenza Type A Antigen Screen - Final Nasal, Right NEGATIVE INFLUENZA A VIRUS AG REFERENCE RANGE: NEGATIVE Influenza Type B Antigen Screen - Final NEGATIVE INFLUENZA B VIRUS AG REFERENCE RANGE: NEGATIVE Med Orders - Current: Current Medications Albuterol/Ipratropium (Duoneb 3.0-0.5 Mg/3 Ml) 3 ml NEB Q4H PRN PRN Reason: Shortness Of Breath/wheezing Guaifenesin/Phenylephrine HCl (Robitussin Dm) 10 ml PO Q6H PRN PRN Reason: Cough Last Admin: 09/11/19 00:02 Dose: 10 ml Heparin Sodium (Porcine) (Heparin Sodium) 5,000 units SUBCUT Q8H [facility] Last Admin: 09/11/19 02:31 Dose: 5,000 units Hydromorphone HCl (Dilaudid) 0.5 mg IVPUSH Q2H PRN PRN Reason: Pain (severe 7-10) Insulin Human Regular 100 unit (/ Sodium Chloride) 100 mls @ 10 mls/hr IV TITRATE [facility]; Protocol Last Admin: 09/11/19 06:07 Dose: 5 unit/hr, 5 mls/hr Lactated Ringer's (Ringers, Lactated) 1,000 mls @ 125 mls/hr IV ASDIRECTED [facility] Last Admin: 09/11/19 02:39 Dose: 125 mls/hr Promethazine HCl 6.25 mg/ (Sodium Chloride) 50.25 mls @ 100 mls/hr IV Q6H PRN PRN Reason: Nausea/Vomiting Dextrose/Water (Dextrose 5% In Water) 1,000 mls @ 150 mls/hr IV ASDIRECTED [facility] Last Admin: 09/11/19 03:36 Dose: 150 mls/hr Ibuprofen (Motrin) 600 mg PO Q6H PRN PRN Reason: Pain (moderate 4-6) Non-Formulary Medication (Dulaglutide [Trulicity]) 1.5 mg SQ TU [facility] Nystatin (Nystop) 3 gm TOP TID [facility] Last Admin: 09/11/19 01:43 Dose: 1 applic Ondansetron HCl (Zofran) 4 mg IV Q6H PRN PRN Reason: Nausea/Vomiting Pantoprazole Sodium (Protonix Iv) 40 mg IV Q12H [facility] Last Admin: 09/11/19 05:26 Dose: 40 mg Discontinued Medications Hydromorphone HCl (Dilaudid) 0.5 mg IVPUSH ONETIME ONE Stop: 09/10/19 14:21 Last Admin: 09/10/19 14:47 Dose: 0.5 mg Sodium Chloride (Normal Saline) 1,000 mls @ 999 mls/hr IV ASDIRECTED [facility] Last Admin: 09/10/19 13:20 Dose: 999 mls/hr Insulin Human Regular 100 unit (/ Sodium Chloride) 100 mls @ 10.7 mls/hr IV TITRATE [facility]; Protocol Sodium Chloride (Normal Saline) 1,000 mls @ 999 mls/hr IV ASDIRECTED [facility] Last Admin: 09/10/19 15:30 Dose: 999 mls/hr Potassium Chloride 10 meq/ (Premix) 100 mls @ 100 mls/hr IV Q1H [facility] Stop: 09/10/19 18:14 Last Admin: 09/10/19 18:29 Dose: 100 mls/hr Sodium Bicarbonate 150 meq/ (Dextrose/Water) 1,150 mls @ 50 mls/hr IV ONETIME ONE Stop: 09/11/19 17:11 Last Admin: 09/10/19 18:31 Dose: 50 mls/hr Potassium Chloride 10 meq/ (Premix) 100 mls @ 100 mls/hr IV Q1H [facility] Stop: 09/11/19 02:59 Last Admin: 09/11/19 02:37 Dose: 100 mls/hr Potassium Chloride (Klor-Con M20) 60 meq PO ONETIME ONE Stop: 09/10/19 22:58 Last Admin: 09/10/19 23:10 Dose: 60 meq - Exam Quality Assessment: No: Supplemental Oxygen General: Alert, Oriented, Cooperative, No Acute Distress, Other (Morbidly Obese) HEENT: Pupils Equal, Pupils Reactive, EOMI, Mucous Membr. Moist/[place] Neck: Supple, Trachea Midline, No JVD, No Thyromegaly, Other (neck short and thick) Lungs: Normal Respiratory Effort, Decreased Breath Sounds Cardiovascular: Regular Rate, Regular Rhythm GI/Abdominal Exam: Normal Bowel Sounds, Soft, Non-Tender, No Organomegaly, No Distention, No Abnormal Bruit, Other (noted for excess abominal skin) (Female) Exam: Deferred, Other (presence of diaz catheter) Back Exam: Normal Inspection, Decreased Range of Motion Extremities: Normal Inspection, Normal Range of Motion, Non-Tender, No Pedal Edema, Normal Capillary Refill Peripheral Pulses: 2+: Posterior Tibial (L), Posterior Tibial (R), Dorsalis Pedis (L), Dorsalis Pedis (R) Skin: Warm, Dry, Intact, Rash, Other (keely-anal, perirectal, gluteal, inguinal and bilateral inner thighs skin irration ) Neurological: No New Focal Deficit Psy/Mental Status: Alert, Normal Affect, Normal Mood Sepsis Event Note - Evaluation Sepsis Screening Result: Severe Sepsis Risk - Focused Exam Vital Signs: Vital Signs Temp Pulse Resp BP Pulse Ox 09/11/19 04:00 36.3 C 17 121/80 99 09/11/19 00:00 36.7 C 15 114/94 H 99 09/10/19 19:29 36.5 C 108 H 20 118/70 96 Date Exam was Performed: 09/11/19 Time Exam was Performed: 16:11 - Problem List Review Problem List Initiated/Reviewed/Updated: Yes - My Orders Last 24 Hours: My Active Orders 09/10/19 17:10 Bedrest Bedside Commode [RC] ASDIRECTED Cardiac Monitoring [RC] CONTINUOUS Oxygen Therapy [RC] PRN VTE/DVT Education [RC] Vital Signs [RC] Q4HR Albuterol/Ipratropium [DuoNeb 3.0-0.5 MG/3 ML] 3 ml NEB Q4H PRN HYDROmorphone [Dilaudid] 0.5 mg IVPUSH Q2H PRN Ibuprofen [Motrin] 600 mg PO Q6H PRN Ondansetron [Zofran] 4 mg IV Q6H PRN Promethazine [Phenergan] 6.25 mg Sodium Chloride 0.9% [Normal Saline] 50 ml IV Q6H Resuscitation Status Routine 09/10/19 17:12 RT Aerosol Therapy [RC] .PRN 09/10/19 17:13 Consult to Case Management/Skin Drier [CONS] Routine Consult to Diabetic Nurse Specialist [CONS] Routine Consult to Mysql Database Administrator [CONS] Routine Consult to Spiritual Care [CONS] Routine OT Evaluation and Treatment [CONS] Routine PT Evaluation and Treatment [CONS] Routine 09/10/19 17:15 Lactated Ringers [Ringers, Lactated] 1,000 ml IV ASDIRECTED 09/10/19 17:20 Retroperitoneal Comp [US] Routine 09/10/19 18:00 Heparin Sodium 5,000 units SUBCUT Q8H Pantoprazole [ProTONIX IV] 40 mg IV Q12H 09/10/19 19:07 EOSINOPHILS, URINE Routine UREA NITROGEN, URINE Routine 09/10/19 19:32 Urinary Catheter Assessment [RC] Q4HR 09/10/19 19:45 Insert Diaz Catheter [Insert Urinary Catheter] [OM.PC] Q24H 09/10/19 21:00 Dextrose 5% in Water 1,000 ml IV ASDIRECTED 09/10/19 22:21 Precautions [COMM] Routine 09/10/19 23:31 Dextromethorphan/guaiFENesin [Robitussin DM] 10 ml PO Q6H PRN 09/10/19 23:32 RESPIRATORY PANEL Stat 09/10/19 Dinner Nothing per Oral Now Diet [DIET] 09/11/19 01:24 Nystatin [Nystop] 3 gm TOP TID 09/11/19 09:00 BASIC METABOLIC PANEL,BMP [CHEM] Q4H MAGNESIUM [CHEM] Q4H 09/11/19 13:00 BASIC METABOLIC PANEL,BMP [CHEM] Q4H MAGNESIUM [CHEM] Q4H 09/11/19 17:00 BASIC METABOLIC PANEL,BMP [CHEM] Q4H MAGNESIUM [CHEM] Q4H 09/11/19 21:00 BASIC METABOLIC PANEL,BMP [CHEM] Q4H MAGNESIUM [CHEM] Q4H 09/11/19 22:00 Dulaglutide [Trulicity] 1.5 mg SQ TU 09/12/19 05:11 CBC WITH AUTO DIFF [HEME] AM HEPATIC FUNCTION PANEL,HFP [CHEM] AM PHOSPHORUS [CHEM] AM 09/13/19 05:11 CBC WITH AUTO DIFF [HEME] AM PHOSPHORUS [CHEM] AM 09/14/19 05:11 CBC WITH AUTO DIFF [HEME] AM 09/15/19 05:11 CBC WITH AUTO DIFF [HEME] AM 09/16/19 05:11 CBC WITH AUTO DIFF [HEME] AM 09/17/19 05:11 CBC WITH AUTO DIFF [HEME] AM - Plan Plan:: Acute: DM2 with A1C of 10.90. She takes Metformin and Trulicity for maintenance medications. Hold home medications for now. Lantus 20 units BID and Moderate Intensity ISS. Pending A1C level. Leukocytosis with WBC of 14.86-->11.12 and 15.38 with 0 Band, Improving. Suspected secondary to hemo-concentration. ROSETTA 2/2 Intravascular Volume Depletion from GI/ loss, Improving. Bun of 28 with Cr of 1.5. No baseline for comparison. Avoid nephrotoxic agents. Serial BMP. Hypophosphatemia. PO4 of 4.8-->1.6. 2/2 ROSETTA. Will monitor. Hypoalbuminemia. Albumin of 3.1-->2.0 Dietary consult for weight management. Morbid Obesity. BMI of 41.4. Dietary consult for weight management. Proteinuria +1 Protein, Glucosuria 2+ Glucose, Ketonuria 2+ Ketones, Bilirubinuria, Bacteriuria, and Hematuria 2+ Occult Blood-abnormal finding on UA. Cutaneous Candidiasis in inguinal folds, Inner thighs, Gluteal and Keely-anal and Vaginal area. Nystatin powder as indicated and proper hygiene. She may need help after discharge due to her body habitus. Resolved: S/p AMS 2/2 Metabolic Encephalopathy from DKA. Head CT scan shows no acute abnormality. Plan: Supportive care and Aspiration precaution S/p DKA. Presented lethargic with BS of 677, LA os 2.7 and Ketones of 14.52. Received fluids for initial volume resuscitation and insulin drip in ED prior to coming to the unit. Plan: Dr. Anguiano's DKA protocol S/p Lactic Acidosis. LA of 2.7 likely from Metabolic Acidosis due to DKA. Had bicarb gtt overnight. S/p Hyperphosphatemia. PO4 of 4.8-->1.6. 2/2 ROSETTA. Will monitor. S/p Transaminitis. AST of 60 and ALT of 70. Likely from severe dehydration. Will hold statin and acetaminophen for now. Chronic: Impaired Vision, HLD, COPD, Hypothyroidism, Urinary Incontinence, Recurrent UTI, Hx/o Pyelonephritis, Fibromyalgia, Seizure, Schizophrenia/ Schizoaffective Disorder, Muscle Spasm, Anxiety, Depression, and Obesity Plan: Continue current treatment. Resume home medications. ADA diet. Fall Precautions. Code status is full. CM/SW for d/c planning. Prognosis is good. Possible discharge in AM.
[2019-09-11] MEDS ORDERED: Phosphorus #1 250 MG Tab PO ONE (07:06)
[2019-09-11] MEDS ORDERED: Magnesium Sulfate/Water 2 GM in Premix Bag 1 BAG IV ONE (07:06)
[2019-09-11] MEDS ORDERED: Insulin Glarg,Human.Rec.Analog 100 Unit/ML SUBCUT SCH (09:00)
[2019-09-11] MEDS ORDERED: Lactated Ringers 1,000 ML IV SCH (09:15)
[2019-09-11] MEDS: Insulin Lispro 100 Units/ML 3 ML Vial SUBCUT SCH ×4 (09:23→22:07)
[2019-09-11] MEDS: Formoterol/Mometasone 100-5 MCG 8.8 GM Inhaler IH SCH ×2 (11:40→20:29)
[2019-09-11] MEDS ORDERED: OLANZapine 10 MG in Water For Injection, Sterile 2.1 ML IM ONE (11:43)
[2019-09-11] MEDS ORDERED: OLANZapine 10 MG Vial IM ONE (12:00)
[2019-09-11] MEDS ORDERED: Cyclobenzaprine 10 MG Tab PO PRN (12:54)
[2019-09-11] MEDS ORDERED: ARIPiprazole 10 MG Tab PO ONE (13:30)
[2019-09-11] MEDS ORDERED: Haloperidol Lactate 5 MG/ML SDV IM ONE (13:37)
[2019-09-11] MEDS: ALPRAZolam 0.25 MG Tab PO PRN ×2 (13:39→21:27)
[2019-09-11 14:32] LABS: HEMOGLOBIN A1C 13.1 % (4.50-6.20)
[2019-09-11] MEDS ORDERED: hydrOXYzine HCl 25 MG Tab PO PRN (15:00)
--- NOTE | 2019-09-11 16:23 | PCM.SN ---
- Free Text/Narrative Note: Patient developed acute psychosis after morning rounds. 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 She wanted to leave despite having an elevated BS of >400. She was agitated and wanted to leave the facility. I informed her she just had a life threatening event and that she was not quite ready for discharge. Her neighbor/friend then came to speak with her. We tried everything we can to help her calm down but w/o any success. However she responded to a one time dose of Zyprexa 10 mg IM. At this point, we are concerned about her ability to care for herself since she does not have any family members for home support. Spoke to MARTHA Flor and she will look into her home situation prior to discharge.
[2019-09-11] MEDS ORDERED: ALPRAZolam 0.25 MG Tab PO PRN (16:53)
[2019-09-11] MEDS: Phosphorus #1 250 MG Tab PO SCH (20:55)
[2019-09-11] MEDS: Pregabalin 75 MG Cap PO SCH (20:55)
[2019-09-11] MEDS: Rosuvastatin 10 MG Tab PO SCH (20:55)
[2019-09-11] MEDS ORDERED: CLONIDINE 0.1 MG PO SCH (21:00)
[2019-09-11] MEDS: risperiDONE 1 MG Tab PO SCH (21:04)
[2019-09-11] MEDS ORDERED: DULAGLUTIDE 1.5 MG SUBCUT SCH (22:00)
[2019-09-12] MEDS: Heparin Sodium 5,000 Units/ML Vial SUBCUT SCH ×3 (02:22→17:27)
[2019-09-12] MEDS: Insulin Lispro 100 Units/ML 3 ML Vial SUBCUT SCH ×5 (06:22→21:15)
[2019-09-12] MEDS: Pantoprazole 40 MG Tab.CR PO SCH ×2 (06:24→15:59)
--- NOTE | 2019-09-12 07:55 | PCM.PN ---
- General Info Date of Service: 09/12/19 Admission Dx/Problem (Free Text): Admission Diagnosis/Problem Admission Diagnosis/Problem Diabetic ketoacidosis Subjective Update: Follow Up Functional Status: Reports: Pain Controlled, Tolerating Diet, Ambulating, Urinating - Review of Systems General: Denies: Fever, Chills HEENT: Reports: No Symptoms Pulmonary: Denies: Shortness of Breath Cardiovascular: Denies: Chest Pain, Dyspnea on Exertion, Lightheadedness Gastrointestinal: Denies: Abdominal Pain, Nausea, Vomiting Genitourinary: Reports: No Symptoms Musculoskeletal: Reports: No Symptoms Skin: Reports: No Symptoms Neurological: Reports: No Symptoms Psychiatric: Reports: No Symptoms Systems Review Comment:: She mellowed out since yesterday. She ripped out her IV acces and removed her telemetry yesterday. She remains mad and did not understand why she is in the hospital. - Patient Data Vitals - Most Recent: Last Vital Signs Temp 36.9 C 09/12/19 04:00 Pulse 95 09/12/19 04:02 Resp 19 09/12/19 04:02 BP 93/53 L 09/12/19 04:00 Pulse Ox 98 09/12/19 04:02 Weight - Most Recent: 112.945 kg I&O - Last 24 Hours: Intake & Output 09/11/19 09/12/19 09/12/19 22:59 06:59 14:59 Intake Total 2270 400 Balance 2270 400 Lab Results Last 24 Hours: Laboratory Results - last 24 hr 09/10/19 09/10/19 09/10/19 Range/Units 19:07 19:07 23:32 WBC (3.98-10.04) K/mm3 RBC (3.98-5.22) M/mm3 Hgb (11.2-15.7) gm/dl Hct (34.1-44.9) % MCV (79.4-94.8) fl MCH (25.6-32.2) pg MCHC (32.2-35.5) g/dl RDW Std Deviation (36.4-46.3) fL Plt Count (182-369) K/mm3 MPV (9.4-12.3) fl Neut % (Auto) (34.0-71.1) % Lymph % (Auto) (19.3-51.7) % Callahan % (Auto) (4.7-12.5) % Eos % (Auto) (0.7-5.8) Baso % (Auto) (0.1-1.2) % Neut # (Auto) (1.56-6.13) K/mm3 Lymph # (Auto) (1.18-3.74) K/mm3 Callahan # (Auto) (0.24-0.36) K/mm3 Eos # (Auto) (0.04-0.36) K/mm3 Baso # (Auto) (0.01-0.08) K/mm3 Glucose (80-115) mg/dL POC Glucose (80-115) mg/dL Hemoglobin A1c (4.50-6.20) % Phosphorus (2.6-4.7) mg/dL Magnesium (1.8-2.4) mg/dl Total Bilirubin (0.2-1.0) mg/dL Direct Bilirubin (0.0-0.2) mg/dl Indirect Bilirubin AST (15-37) U/L ALT (14-59) U/L Alkaline Phosphatase (46-116) U/L Total Protein (6.4-8.2) g/dl Albumin (3.4-5.0) g/dl Globulin gm/dL Albumin/Globulin Ratio (1-2) Ur Eosinophil Smear Eos absent (Eos Absent) % EOS Ur Urea Nitrogen Conc 436 mg/dL Adenovirus (PCR) Not detected (Not Detected) B. pertussis DNA (PCR) Not detected (Not Detected) B.parapertussis DNA PCR Not detected (Not Detected) C. pneumoniae DNA (PCR) Not detected (Not Detected) Coronavirus (PCR) Not detected (Not Detected) Human Metapneumovir PCR Not detected (Not Detected) Influenza A (RT-PCR) Not detected (Not Detected) Influenza B (RT-PCR) Detected H (Not Detected) M. pneumoniae (PCR) Not detected (Not Detected) Parainfluen 1,2,3,4 PCR Not detected (Not Detected) RSV (PCR) Not detected (Not Detected) Entero/Rhino (PCR) Not detected (Not Detected) 09/11/19 09/11/19 09/11/19 Range/Units 05:20 08:07 09:09 WBC (3.98-10.04) K/mm3 RBC (3.98-5.22) M/mm3 Hgb (11.2-15.7) gm/dl Hct (34.1-44.9) % MCV (79.4-94.8) fl MCH (25.6-32.2) pg MCHC (32.2-35.5) g/dl RDW Std Deviation (36.4-46.3) fL Plt Count (182-369) K/mm3 MPV (9.4-12.3) fl Neut % (Auto) (34.0-71.1) % Lymph % (Auto) (19.3-51.7) % Callahan % (Auto) (4.7-12.5) % Eos % (Auto) (0.7-5.8) Baso % (Auto) (0.1-1.2) % Neut # (Auto) (1.56-6.13) K/mm3 Lymph # (Auto) (1.18-3.74) K/mm3 Callahan # (Auto) (0.24-0.36) K/mm3 Eos # (Auto) (0.04-0.36) K/mm3 Baso # (Auto) (0.01-0.08) K/mm3 Glucose (80-115) mg/dL POC Glucose 240 H 243 H (80-115) mg/dL Hemoglobin A1c 13.10 H (4.50-6.20) % Phosphorus (2.6-4.7) mg/dL Magnesium (1.8-2.4) mg/dl Total Bilirubin (0.2-1.0) mg/dL Direct Bilirubin (0.0-0.2) mg/dl Indirect Bilirubin AST (15-37) U/L ALT (14-59) U/L Alkaline Phosphatase (46-116) U/L Total Protein (6.4-8.2) g/dl Albumin (3.4-5.0) g/dl Globulin gm/dL Albumin/Globulin Ratio (1-2) Ur Eosinophil Smear (Eos Absent) % EOS Ur Urea Nitrogen Conc mg/dL Adenovirus (PCR) (Not Detected) B. pertussis DNA (PCR) (Not Detected) B.parapertussis DNA PCR (Not Detected) C. pneumoniae DNA (PCR) (Not Detected) Coronavirus (PCR) (Not Detected) Human Metapneumovir PCR (Not Detected) Influenza A (RT-PCR) (Not Detected) Influenza B (RT-PCR) (Not Detected) M. pneumoniae (PCR) (Not Detected) Parainfluen 1,2,3,4 PCR (Not Detected) RSV (PCR) (Not Detected) Entero/Rhino (PCR) (Not Detected) 09/11/19 09/11/19 09/12/19 Range/Units 16:19 21:32 04:30 WBC 5.58 (3.98-10.04) K/mm3 RBC 4.77 (3.98-5.22) M/mm3 Hgb 13.5 (11.2-15.7) gm/dl Hct 40.6 (34.1-44.9) % MCV 85.1 (79.4-94.8) fl MCH 28.3 (25.6-32.2) pg MCHC 33.3 (32.2-35.5) g/dl RDW Std Deviation 44.7 (36.4-46.3) fL Plt Count 129 L (182-369) K/mm3 MPV 12.4 H (9.4-12.3) fl Neut % (Auto) 63.6 (34.0-71.1) % Lymph % (Auto) 22.2 (19.3-51.7) % Callahan % (Auto) 12.0 (4.7-12.5) % Eos % (Auto) 2.0 (0.7-5.8) Baso % (Auto) 0.0 L (0.1-1.2) % Neut # (Auto) 3.55 (1.56-6.13) K/mm3 Lymph # (Auto) 1.24 (1.18-3.74) K/mm3 Callahan # (Auto) 0.67 H (0.24-0.36) K/mm3 Eos # (Auto) 0.11 (0.04-0.36) K/mm3 Baso # (Auto) 0.00 L (0.01-0.08) K/mm3 Glucose 363 H (80-115) mg/dL POC Glucose 298 H (80-115) mg/dL Hemoglobin A1c (4.50-6.20) % Phosphorus (2.6-4.7) mg/dL Magnesium (1.8-2.4) mg/dl Total Bilirubin (0.2-1.0) mg/dL Direct Bilirubin (0.0-0.2) mg/dl Indirect Bilirubin AST (15-37) U/L ALT (14-59) U/L Alkaline Phosphatase (46-116) U/L Total Protein (6.4-8.2) g/dl Albumin (3.4-5.0) g/dl Globulin gm/dL Albumin/Globulin Ratio (1-2) Ur Eosinophil Smear (Eos Absent) % EOS Ur Urea Nitrogen Conc mg/dL Adenovirus (PCR) (Not Detected) B. pertussis DNA (PCR) (Not Detected) B.parapertussis DNA PCR (Not Detected) C. pneumoniae DNA (PCR) (Not Detected) Coronavirus (PCR) (Not Detected) Human Metapneumovir PCR (Not Detected) Influenza A (RT-PCR) (Not Detected) Influenza B (RT-PCR) (Not Detected) M. pneumoniae (PCR) (Not Detected) Parainfluen 1,2,3,4 PCR (Not Detected) RSV (PCR) (Not Detected) Entero/Rhino (PCR) (Not Detected) 09/12/19 Range/Units 04:30 WBC (3.98-10.04) K/mm3 RBC (3.98-5.22) M/mm3 Hgb (11.2-15.7) gm/dl Hct (34.1-44.9) % MCV (79.4-94.8) fl MCH (25.6-32.2) pg MCHC (32.2-35.5) g/dl RDW Std Deviation (36.4-46.3) fL Plt Count (182-369) K/mm3 MPV (9.4-12.3) fl Neut % (Auto) (34.0-71.1) % Lymph % (Auto) (19.3-51.7) % Callahan % (Auto) (4.7-12.5) % Eos % (Auto) (0.7-5.8) Baso % (Auto) (0.1-1.2) % Neut # (Auto) (1.56-6.13) K/mm3 Lymph # (Auto) (1.18-3.74) K/mm3 Callahan # (Auto) (0.24-0.36) K/mm3 Eos # (Auto) (0.04-0.36) K/mm3 Baso # (Auto) (0.01-0.08) K/mm3 Glucose (80-115) mg/dL POC Glucose (80-115) mg/dL Hemoglobin A1c (4.50-6.20) % Phosphorus 2.6 (2.6-4.7) mg/dL Magnesium 2.2 (1.8-2.4) mg/dl Total Bilirubin 0.3 (0.2-1.0) mg/dL Direct Bilirubin 0.20 (0.0-0.2) mg/dl Indirect Bilirubin 0.10 AST 56 H (15-37) U/L ALT 50 (14-59) U/L Alkaline Phosphatase 211 H (46-116) U/L Total Protein 6.0 L (6.4-8.2) g/dl Albumin 2.2 L (3.4-5.0) g/dl Globulin 3.8 gm/dL Albumin/Globulin Ratio 0.6 L (1-2) Ur Eosinophil Smear (Eos Absent) % EOS Ur Urea Nitrogen Conc mg/dL Adenovirus (PCR) (Not Detected) B. pertussis DNA (PCR) (Not Detected) B.parapertussis DNA PCR (Not Detected) C. pneumoniae DNA (PCR) (Not Detected) Coronavirus (PCR) (Not Detected) Human Metapneumovir PCR (Not Detected) Influenza A (RT-PCR) (Not Detected) Influenza B (RT-PCR) (Not Detected) M. pneumoniae (PCR) (Not Detected) Parainfluen 1,2,3,4 PCR (Not Detected) RSV (PCR) (Not Detected) Entero/Rhino (PCR) (Not Detected) Jerrod Results Last 24 Hours: Microbiology 09/10/19 14:10 Aerobic Blood Culture - Preliminary Blood - Venous NO GROWTH AFTER 1 DAY Anaerobic Blood Culture - Final 09/10/19 12:58 Aerobic Blood Culture - Preliminary Blood - Venous - Lab Draw NO GROWTH AFTER 1 DAY Anaerobic Blood Culture - Preliminary NO GROWTH AFTER 1 DAY Med Orders - Current: Current Medications Albuterol/Ipratropium (Duoneb 3.0-0.5 Mg/3 Ml) 3 ml NEB Q4H PRN PRN Reason: Shortness Of Breath/wheezing Alprazolam (Xanax) 0.25 mg PO BID PRN PRN Reason: Anxiety Last Admin: 09/11/19 21:27 Dose: 0.25 mg Aripiprazole (Abilify) 40 mg PO DAILY [facility] [place] Cyclobenzaprine HCl (Flexeril) 10 mg PO TID PRN PRN Reason: Pain Last Admin: 09/11/19 13:39 Dose: 10 mg Fluoxetine HCl (Prozac) 80 mg PO DAILY [facility] [place] Guaifenesin/Phenylephrine HCl (Robitussin Dm) 10 ml PO Q6H PRN PRN Reason: Cough Last Admin: 09/11/19 00:02 Dose: 10 ml Heparin Sodium (Porcine) (Heparin Sodium) 5,000 units SUBCUT Q8H [facility] [place] Last Admin: 09/12/19 02:22 Dose: 5,000 units Hydromorphone HCl (Dilaudid) 0.5 mg IVPUSH Q2H PRN PRN Reason: Pain (severe 7-10) Hydroxyzine HCl (Atarax) 25 mg PO TID PRN PRN Reason: anxiety Promethazine HCl 6.25 mg/ (Sodium Chloride) 50.25 mls @ 100 mls/hr IV Q6H PRN PRN Reason: Nausea/Vomiting Ibuprofen (Motrin) 600 mg PO Q6H PRN PRN Reason: Pain (moderate 4-6) Insulin Glargine (Lantus) 25 unit SUBCUT DAILY [facility] [place] Insulin Human Lispro (Humalog) 0 unit SUBCUT QIDACANDBED [facility] [place]; Protocol Last Admin: 09/12/19 06:22 Dose: 6 units Mometasone Furoate/Formoterol Fumar (Dulera 100-5 Mcg) 2 puff IH BID [facility] [place] Last Admin: 09/11/19 20:29 Dose: 2 puff Nystatin (Nystop) 3 gm TOP TID [facility] [place] Last Admin: 09/11/19 21:09 Dose: 1 applic Ondansetron HCl (Zofran) 4 mg IV Q6H PRN PRN Reason: Nausea/Vomiting Pantoprazole Sodium (Protonix) 40 mg PO BIDAC [facility] [place] Last Admin: 09/12/19 06:24 Dose: 40 mg Dulaglutide [ Trulicity] Injection 1.5 Mg Pen 0 each SUBCUT TU [facility] Last Admin: 09/11/19 21:37 Dose: Not Given Pregabalin (Lyrica) 300 mg PO BID [facility] Last Admin: 09/11/19 20:55 Dose: 300 mg Risperidone (Risperidal) 3 mg PO BID [facility] Last Admin: 09/11/19 21:04 Dose: Not Given Rosuvastatin Calcium (Crestor) 20 mg PO BEDTIME [facility] Last Admin: 09/11/19 20:55 Dose: 20 mg Sodium Phosphate (Neutra-Phos) 250 mg PO BID [facility] Stop: 09/12/19 21:01 Last Admin: 09/11/19 20:55 Dose: 250 mg Discontinued Medications Aripiprazole (Abilify) 40 mg PO ONETIME ONE Stop: 09/11/19 13:31 Last Admin: 09/11/19 13:39 Dose: 40 mg Haloperidol Lactate (Haldol) 5 mg IM ONETIME ONE Stop: 09/11/19 13:38 Last Admin: 09/11/19 14:19 Dose: Not Given Hydromorphone HCl (Dilaudid) 0.5 mg IVPUSH ONETIME ONE Stop: 09/10/19 14:21 Last Admin: 09/10/19 14:47 Dose: 0.5 mg Sodium Chloride (Normal Saline) 1,000 mls @ 999 mls/hr IV ASDIRECTED [facility] Last Admin: 09/10/19 13:20 Dose: 999 mls/hr Insulin Human Regular 100 unit (/ Sodium Chloride) 100 mls @ 10.7 mls/hr IV TITRATE [facility]; Protocol Insulin Human Regular 100 unit (/ Sodium Chloride) 100 mls @ 10 mls/hr IV TITRATE [facility]; Protocol Last Titration: 09/11/19 09:05 Dose: 0 unit/hr, 0 mls/hr Sodium Chloride (Normal Saline) 1,000 mls @ 999 mls/hr IV ASDIRECTED [facility] Last Admin: 09/10/19 15:30 Dose: 999 mls/hr Potassium Chloride 10 meq/ (Premix) 100 mls @ 100 mls/hr IV Q1H [facility] Stop: 09/10/19 18:14 Last Admin: 09/10/19 18:29 Dose: 100 mls/hr Lactated Ringer's (Ringers, Lactated) 1,000 mls @ 125 mls/hr IV ASDIRECTED [facility] Last Admin: 09/11/19 02:39 Dose: 125 mls/hr Sodium Bicarbonate 150 meq/ (Dextrose/Water) 1,150 mls @ 50 mls/hr IV ONETIME ONE Stop: 09/11/19 17:11 Last Admin: 09/10/19 18:31 Dose: 50 mls/hr Dextrose/Water (Dextrose 5% In Water) 1,000 mls @ 150 mls/hr IV ASDIRECTED [facility] [place] Last Admin: 09/11/19 03:36 Dose: 150 mls/hr Potassium Chloride 10 meq/ (Premix) 100 mls @ 100 mls/hr IV Q1H [facility] Stop: 09/11/19 02:59 Last Admin: 09/11/19 02:37 Dose: 100 mls/hr Magnesium Sulfate 2 gm/ Premix 50 mls @ 25 mls/hr IV ONETIME ONE Stop: 09/11/19 09:05 Last Admin: 09/11/19 08:58 Dose: 25 mls/hr Lactated Ringer's (Ringers, Lactated) 1,000 mls @ 25 mls/hr IV ASDIRECTED [facility] [place] Last Admin: 09/11/19 09:26 Dose: 25 mls/hr Insulin Glargine (Lantus) 20 unit SUBCUT DAILY [facility] [place] Last Admin: 09/11/19 09:20 Dose: 20 units Non-Formulary Medication (Aripiprazole) 10 mg PO DAILY [facility] [place] Non-Formulary Medication (Clonidine.) 0.1 mg PO BID [facility] [place] Olanzapine (Zyprexa) 10 mg IM ONETIME ONE Stop: 09/11/19 12:01 Last Admin: 09/11/19 11:56 Dose: 10 mg Pantoprazole Sodium (Protonix Iv) 40 mg IV Q12H [facility] [place] Last Admin: 09/11/19 20:29 Dose: Not Given Potassium Chloride (Klor-Con M20) 60 meq PO ONETIME ONE Stop: 09/10/19 22:58 Last Admin: 09/10/19 23:10 Dose: 60 meq Sodium Phosphate (Neutra-Phos) 500 mg PO ONETIME ONE Stop: 09/11/19 07:07 Last Admin: 09/11/19 09:13 Dose: 500 mg - Exam General: Alert, Cooperative, No Acute Distress, Other (Morbid) HEENT: Pupils Equal, Pupils Reactive, EOMI, Mucous Membr. Moist/[place] Neck: Supple Lungs: Clear to Auscultation, Normal Respiratory Effort Cardiovascular: Regular Rate, Regular Rhythm GI/Abdominal Exam: Normal Bowel Sounds, Soft, Non-Tender, No Organomegaly, No Distention, No Abnormal Bruit (Female) Exam: Deferred Back Exam: Normal Inspection, Decreased Range of Motion Extremities: Normal Inspection, Normal Range of Motion, Non-Tender, No Pedal Edema, Normal Capillary Refill Peripheral Pulses: 2+: Dorsalis Pedis (L), Dorsalis Pedis (R) Skin: Warm, Dry, Intact Neurological: No New Focal Deficit, Normal Gait Psy/Mental Status: Alert, Normal Affect, Anxious. No: Suicidal Ideation, Homicidal Ideation, Hallucinations Physical Findings Comments:: She was hearing and seeing things before Sepsis Event Note - Evaluation Sepsis Screening Result: No Definite Risk - Focused Exam Vital Signs: Vital Signs Temp Pulse Resp BP Pulse Ox Pulse Ox Pulse Ox 09/12/19 04:02 95 19 98 09/12/19 04:00 36.9 C 18 93/53 L 98 09/12/19 03:00 93 19 100 09/12/19 02:00 93 18 98 09/12/19 01:00 94 19 98 09/12/19 00:00 36.6 C 93 19 91/53 L 98 09/11/19 23:00 95 21 H 100 09/11/19 22:40 100 09/11/19 22:35 97 20 77 L 09/11/19 22:00 97 91 L 09/11/19 20:35 99 09/11/19 20:30 99 09/11/19 20:00 37.2 C 20 108/75 99 Date Exam was Performed: 09/12/19 Time Exam was Performed: 18:45 - Problem List Review Problem List Initiated/Reviewed/Updated: Yes - My Orders Last 24 Hours: My Active Orders 09/11/19 08:49 Blood Glucose Check, Bedside [RC] QIDACANDBED 09/11/19 09:30 Mometasone/Formoterol [Dulera 100-5 MCG] 2 puff IH BID 09/11/19 11:00 Insulin Lispro [HumaLOG] See Protocol SUBCUT QIDACANDBED 09/11/19 12:54 ALPRAZolam [Xanax] 0.25 mg PO BID PRN Cyclobenzaprine [Flexeril] 10 mg PO TID PRN One To One Therapy [BH] Routine 09/11/19 14:33 One To One Therapy [BH] Routine 09/11/19 15:00 hydrOXYzine HCL [Atarax] 25 mg PO TID PRN 09/11/19 21:00 Phosphorus #1 [Neutra-Phos] 250 mg PO BID Pregabalin [Lyrica] 300 mg PO BID Rosuvastatin [Crestor] 20 mg PO BEDTIME risperiDONE [RisperiDAL] 3 mg PO BID 09/11/19 22:00 Patient's Own Medication [Ptom] 0 each SUBCUT TU 09/11/19 Breakfast ADA Diabetic [[place] [employer] Diet] [DIET] 09/12/19 06:00 Pantoprazole [ProTONIX] 40 mg PO BIDAC 09/12/19 07:00 Retroperitoneal Comp [US] Routine 09/12/19 09:00 ARIPiprazole [Abilify] 40 mg PO DAILY FLUoxetine [PROzac] 80 mg PO DAILY Insulin Glarg,Human.Rec.Analog [LantUS] 25 unit SUBCUT DAILY 09/13/19 05:11 CBC WITH AUTO DIFF [HEME] AM CMP [COMPREHENSIVE METABOLIC PN,CMP] [CHEM] AM MAGNESIUM [CHEM] AM PHOSPHORUS [CHEM] AM 09/14/19 05:11 CBC WITH AUTO DIFF [HEME] AM CMP [COMPREHENSIVE METABOLIC PN,CMP] [CHEM] AM MAGNESIUM [CHEM] AM 09/15/19 05:11 CBC WITH AUTO DIFF [HEME] AM CMP [COMPREHENSIVE METABOLIC PN,CMP] [CHEM] AM MAGNESIUM [CHEM] AM 09/16/19 05:11 CBC WITH AUTO DIFF [HEME] AM 09/17/19 05:11 CBC WITH AUTO DIFF [HEME] AM - Plan Plan:: Acute: Psychosis 2/2 underlying Schizophrenia/Schizoaffective Disorder on high dose psych regimen. She ripped her IV & Telemetry out and threatened to leave AMA. We had to give Zyprexa but she did not finally calm down until she received all her psych medications: Xanax 0.25 mg po BID PRN, Abilify 40 mg po daily, Flexeril 10 mg po TID PRN, Prozac 80 mg po daily, Risperidone 3 mg po TID and Paliperidone 300 mg po BID. I am uncomfortable sending her back home with her psych regimen. Tele-psych consult with Dr. Jurado. DM2 with A1C of 13.10, Improved Glucose levels. She takes Metformin and Trulicity for maintenance medications. BS in the 200 on average. Will change to Lantus 30 units BID and switch to High Intensity ISS. ROSETTA 2/2 Intravascular Volume Depletion from GI/ loss, Continue to Improve. Bun of 28 with Cr of 1.5. No baseline for comparison. Continue to avoid nephrotoxic agents. Hypoalbuminemia. Albumin of 3.1-->2.0-->2.2, Slowly Improving.Dietary consult for weight management. Morbid Obesity. BMI of 41.4. Dietary consult for weight management. Proteinuria +1 Protein, Glucosuria 2+ Glucose, Ketonuria 2+ Ketones, Bilirubinuria, Bacteriuria, and Hematuria 2+ Occult Blood-abnormal finding on UA. Cutaneous Candidiasis in inguinal folds, Inner thighs, Gluteal and Keely-anal and Vaginal area, Continue to Improve. Nystatin powder as indicated and proper hygiene. She may need help after discharge due to her body habitus. Resolved: S/p AMS 2/2 Metabolic Encephalopathy from DKA. Head CT scan shows no acute abnormality. Plan: Supportive care and Aspiration precaution. S/p DKA. Presented lethargic with BS of 677, LA os 2.7 and Ketones of 14.52. Received fluids for initial volume resuscitation and insulin drip in ED prior to coming to the unit. Plan: Dr. Anguiano's DKA protocol. S/p Lactic Acidosis. LA of 2.7 likely from Metabolic Acidosis due to DKA. Had bicarb gtt overnight. S/p Hyperphosphatemia. PO4 of 4.8-->1.6. 2/2 ROSETTA. Will monitor. S/p Transaminitis. AST of 60 and ALT of 70. Likely from severe dehydration. Will hold statin and acetaminophen for now. S/p Leukocytosis with WBC of 14.86-->11.12 and 15.38 with 0 Band, Improving. Suspected secondary to hemo-concentration. S/p Hypophosphatemia. PO4 of 4.8-->1.6-->2.6. 2/2 ROSETTA. Will monitor. Chronic: Impaired Vision, HLD, COPD, Hypothyroidism, Urinary Incontinence, Recurrent UTI, Hx/o Pyelonephritis, Fibromyalgia, Seizure, Schizophrenia/ Schizoaffective Disorder, Muscle Spasm, Anxiety, Depression, and Obesity Plan: Continue current treatment. Resume home medications. ADA diet. Fall Precautions. Code status is full. CM/SW for d/c planning. Dr. Jurado consult with possible transfer to inpatient psych.
[2019-09-12] MEDS: Pregabalin 75 MG Cap PO SCH ×2 (08:05→20:18)
[2019-09-12] MEDS: FLUoxetine 20 MG Cap PO SCH (08:05)
[2019-09-12] MEDS: Phosphorus #1 250 MG Tab PO SCH ×2 (08:05→20:17)
[2019-09-12] MEDS: Nystatin Topical Powder 15 GM Bottle TOP SCH ×3 (08:06→20:20)
[2019-09-12] MEDS: risperiDONE 1 MG Tab PO SCH (08:06)
[2019-09-12] MEDS: Formoterol/Mometasone 100-5 MCG 8.8 GM Inhaler IH SCH ×2 (08:09→20:41)
[2019-09-12] MEDS ORDERED: Insulin Glarg,Human.Rec.Analog 100 Unit/ML SUBCUT SCH (09:00)
[2019-09-12] MEDS ORDERED: FLUoxetine 20 MG Cap PO SCH (09:00)
[2019-09-12] MEDS ORDERED: ARIPIPRAZOLE 10 MG PO SCH (09:00)
[2019-09-12] MEDS ORDERED: ARIPiprazole 10 MG Tab PO SCH (09:00)
--- NOTE | 2019-09-12 11:56 | PCM.SN ---
- Free Text/Narrative Note: Called [facility] for placement and refused admission. Called [facility] and Spoke to Dr. Rosas. After we went over her case, he recommended to stop all her maintenance medications and start Haldol 5 mg po q6H. Once stable, he said to send her back home. Will consult Dr. Jurado for further input. Patient likely need to go to [facility] for further management.
--- NOTE | 2019-09-12 12:05 | US ---
Renal ultrasound: Multiple real-time images of the kidneys were obtained. Kidney show no hydronephrosis or mass. Resistivity indices are mostly within normal limits. Right kidney length is 10.2 cm and left kidney length is 9.7 cm. Prevoid bladder volume is 96 mL with patient refusing post void study. Impression: 1. No definite abnormality is seen on renal ultrasound. Diagnostic code #2 This report was dictated in [place] [employer] Time
--- NOTE | 2019-09-12 18:25 | CONS ---
CONSULTING PHYSICIAN: Lev Jurado MD DATE OF CONSULTATION: 09/12/2019 Site where the services are provided is [facility] in [place], [place]. Site where the services are provided is from our offices in [facility]. Length of service for this 60-minute inpatient telemedicine event is 60 minutes. IDENTIFICATION: The patient is a 64-year-old female, who is admitted to the inpatient MICU at [facility] in [place], [place]. She is seen for psychiatric evaluation per the request of staff attending, Dr. Anguiano, and his treatment team. CHIEF COMPLAINT: "Poverty. My roommate is a little careless with money." HISTORY OF PRESENT ILLNESS: The patient is a 64-year-old female who is admitted for complications of DKA on 09/10/2019 to [facility] at [facility] in [place], [place]. The patient apparently has a history of schizophrenia, and she is admitted with a number of psychiatric medications and the treatment team is requesting that this patient's medications be reviewed and adjusted if need be because the patient has been displaying paranoia on the MICU and even trying to leave the hospital. The patient is alert and oriented x3 on interview. She states that "I got a lot of nerves and anxiety" and states that she has been very tired lately, but denies any depression and feels that her depression medications are working for her. The patient expresses concerns that "I am taking too many medications." She denies that she is suicidal or homicidal. She denies any acute psychotic symptoms, but does endorse paranoia in the form of anxiety and nerves. She is a little bit vague on the recent circumstances surrounding her admission, but does state that she is on disability "for my fibromyalgia and other things." She does intimate that she does not feel that she has mental health issues, stating "they give me medication, psychiatric meds, but I do not think I need them." She states she has been taking all of the psychiatric medications that she has been prescribed lately to see if they would work, and she states that she sees a doctor out [facility] who might be connected to [facility], although the patient is not really sure of the doctor's name. It appears that she sees a doctor out of [facility] for her medical issues. PSYCHIATRIC MEDICATIONS AT TIME OF PRESENTATION: 1. Invega 6 mg daily, but the patient has been getting Risperdal 6 mg b.i.d. on the unit. 2. Abilify 10 mg q.a.m. and 40 mg every evening. 3. Xanax 0.25 mg b.i.d. 4. Hydroxyzine 25 mg t.i.d. 5. Prozac 80 mg daily. 6. Insulin. 7. Rifampin. ALLERGIES: 1. Tylenol. 2. Codeine. 3. Morphine. PAST MEDICAL HISTORY: 1. Significant for DKA. 2. History of diabetes. REVIEW OF SYSTEMS: Aside from endocrine, all other major organ systems appear negative at this point in time for acute difficulties or complications. FAMILY PSYCHIATRIC AND CD HISTORY: None reported. PAST PSYCHIATRIC AND CD HISTORY: The patient does report history of psychiatric hospitalizations, but she is not certain when they were. Denies any chemical dependency treatments, not really able to elaborate on her psychiatric history when asked. SOCIAL HISTORY: The patient was born and raised in [place], [place]. She has been living in [place] for the past 15 to 20 years. She was x1 for about 15 years, but she states that her . She does not have any children. She lives by herself in [place], but more recently had been staying down in [place]. MENTAL STATUS EXAMINATION: The patient is a 64-year-old white female, who is in no apparent distress. Speech is of slow rate and rhythm. The patient is cognitively oriented x3. There is no abnormal motor movements or tics observed. Gait and station are not observed as the patient is lying in bed during the course of the inpatient consult. Mood is significant for anxiety. Affect is tired appearing, but cooperative overall for the purposes of the inpatient consult. There is no behavioral or stated evidence of acute suicidal or homicidal ideation or acute psychotic or delusional symptoms. Paranoid themes are reported by the patient. Thought processes are significant for some thought blocking and disorganization. There are no manic symptoms or loose associations evident. Judgment and insight do appear impaired secondary to the patient's medical and psychiatric condition. Motivation for help appears good. VITAL SIGNS: 106/91, 96, 15, and 98.3 degrees. IMPRESSION: [place] I: 1. Schizophrenia, paranoid versus disorganized type, F20. 2. Major depressive disorder, F32. 3. Anxiety disorder, not otherwise specified, F41.9. 4. History of psychosis, not otherwise specified, F29. [place] II: None. [place] III: 1. History of diabetes. 2. History of diabetic ketoacidosis. [place] IV: Severe. [place] V: 50-55. PLAN: 1. Discontinue Invega/Risperdal while the patient is on inpatient unit. 2. Discontinue Abilify while the patient is on inpatient unit. 3. Discontinue hydroxyzine while the patient is on inpatient unit and this is to see if discontinuing these medications will help the patient clear not only medically but also psychiatrically in terms of having the blocked thought processes. 4. If the patient does start to exhibit increased paranoia or psychosis, we will anticipate starting an antipsychotic medication in that event, but we will cross that bridge if need be when those symptoms occur, if they even do while the patient is on the inpatient MICU. 5. Continue Xanax 0.25 mg b.i.d. for anxiety reduction. 6. Continue Prozac 80 mg daily. 7. Social Work to obtain collateral information regarding circumstances of the patient's admission as well as her past psychiatric and medical care. 8. Recommend that when the patient is medically stabilized that she be transferred to inpatient psychiatry for further psychiatric stabilization and medication review. 9. Other medications as dosed and prescribed by the patient's primary inpatient medical treatment team. 10.We will continue to follow up with the patient on an as-needed basis while she remains on the inpatient MICU. 11.We will follow up with the patient sooner if there are any complications in the interim. 12.Crisis plan is in place. LIBBY /[id number]
[2019-09-12] MEDS: Potassium Chloride 20 MEQ Tab.ER PO SCH (20:17)
[2019-09-12] MEDS: Rosuvastatin 10 MG Tab PO SCH (20:18)
[2019-09-12] MEDS: Oseltamivir 75 MG Cap PO SCH (20:18)
[2019-09-12] MEDS: guaiFENesin/Dextromethorphan 100-10 MG/5 ML Soln 5 ML Cup PO PRN (20:18)
[2019-09-13] MEDS: Heparin Sodium 5,000 Units/ML Vial SUBCUT SCH ×2 (02:05→10:06)
[2019-09-13] MEDS: Insulin Lispro 100 Units/ML 3 ML Vial SUBCUT SCH (06:27)
[2019-09-13] MEDS: Pantoprazole 40 MG Tab.CR PO SCH (06:28)
[2019-09-13 07:05] VITALS: PULSE 94
[2019-09-13] MEDS: Potassium Chloride 20 MEQ Tab.ER PO SCH (08:04)
[2019-09-13] MEDS: ALPRAZolam 0.25 MG Tab PO PRN (08:05)
[2019-09-13] MEDS: Oseltamivir 75 MG Cap PO SCH (08:05)
[2019-09-13] MEDS: FLUoxetine 20 MG Cap PO SCH (08:05)
[2019-09-13] MEDS: Nystatin Topical Powder 15 GM Bottle TOP SCH (08:05)
[2019-09-13] MEDS: Pregabalin 75 MG Cap PO SCH (08:05)
[2019-09-13] MEDS: Formoterol/Mometasone 100-5 MCG 8.8 GM Inhaler IH SCH (08:10)
[2019-09-13 08:19] VITALS: BP 93/63
[2019-09-13] MEDS ORDERED: Insulin Glarg,Human.Rec.Analog 100 Unit/ML SUBCUT SCH (09:00)
--- NOTE | 2019-09-13 09:04 | PCM.DCSUM1 ---
Discharge Summary - Hospital Course Diagnosis: Stroke: No Modified Eduardo Scale: No Symptoms at All Modified Eduardo Scale Score: 0 - Discharge Data Discharge Disposition: DC/Tfer to Acute Hospital 02 Condition: Good - Referral to Home Health Primary Care Physician: Collin Hodge MD - Patient Summary/Data Consults: Consultations 09/10/19 17:13 Consult to Case Management/Sterilization Specialist [CONS] Routine Consult to Diabetic Nurse Specialist [CONS] Routine Consult to Buffing And Polishing Wheel Repairer [CONS] Routine Consult to Spiritual Care [CONS] Routine OT Evaluation and Treatment [CONS] Routine PT Evaluation and Treatment [CONS] Routine 09/12/19 11:52 Consult to Physician [CONS] Stat - Patient Instructions Diet: Heart Healthy Diet, Diabetic Diet, Weight Loss Diet Activity: As Tolerated Driving: Do Not Drive Showering/Bathing: May Shower Notify Provider of: Fever, Increased Pain, Swelling and Redness, Drainage, Nausea and/or Vomiting Other/Special Instructions: Transfer to [facility] under the services of Dr. Presley, Attending Psychiatrist - Discharge Plan *PRESCRIPTION DRUG MONITORING PROGRAM REVIEWED*: Not Applicable *COPY OF PRESCRIPTION DRUG MONITORING REPORT IN PATIENT [place]: Not Applicable Home Medications: Home Meds Cyclobenzaprine [Flexeril] 10 mg PO TID PRN 09/01/16 [History] Pregabalin [Lyrica] 300 mg PO BID 09/01/16 [History] Dulaglutide [Trulicity] 1.5 mg SQ TU 06/28/19 [History] Fluticasone/Vilanterol [Breo Ellipta 100-25 MCG Inhalation Kit] 1 each IH ASDIRECTED 09/10/19 [History] Rosuvastatin Calcium 20 mg PO BEDTIME 09/10/19 [History] ALPRAZolam [Alprazolam] 0.25 mg PO BID PRN 09/11/19 [History] FLUoxetine HCl [Fluoxetine HCl] 80 mg PO DAILY 09/11/19 [History] hydrOXYzine HCL [Hydroxyzine HCl] 25 mg PO TID PRN 09/11/19 [History] Insulin Glarg,Human.Rec.Analog [Lantus] 30 unit SUBCUT DAILY ml 09/13/19 [Rx] Insulin Lispro [HumaLOG] See Protocol SUBCUT QIDACANDBED #1 vial 09/13/19 [Rx] Nystatin [Nystop] 3 gm TOP TID bottle 09/13/19 [Rx] Oseltamivir [Tamiflu] 75 mg PO BID cap 09/13/19 [Rx] Oxygen Therapy Mode: Room Air Patient Handouts: Acute Kidney Injury, Adult, Influenza, Adult, [id number], Skin Yeast Infection, Delirium, Preventing Diabetic Ketoacidosis, Obesity, Adult , [id number] Referrals: Collin Hodge MD [Primary Care Provider] - - Patient Data Vitals - Most Recent: Last Vital Signs Temp 98.1 F 09/13/19 08:19 Pulse 94 09/13/19 07:00 Resp 18 09/13/19 08:19 BP 93/63 09/13/19 08:19 Pulse Ox 92 L 09/13/19 08:19 Weight - Most Recent: 247 lb 6.4 oz I&O - Last 24 hours: Intake & Output 09/12/19 09/13/19 09/13/19 22:59 06:59 14:59 Intake Total 520 400 Balance 520 400 Lab Results - Last 24 hrs: Laboratory Results - last 24 hr 09/12/19 09/12/19 09/12/19 Range/Units 04:30 06:20 09:33 WBC (3.98-10.04) K/mm3 RBC (3.98-5.22) M/mm3 Hgb (11.2-15.7) gm/dl Hct (34.1-44.9) % MCV (79.4-94.8) fl MCH (25.6-32.2) pg MCHC (32.2-35.5) g/dl RDW Std Deviation (36.4-46.3) fL Plt Count (182-369) K/mm3 MPV (9.4-12.3) fl Neut % (Auto) (34.0-71.1) % Lymph % (Auto) (19.3-51.7) % Terry % (Auto) (4.7-12.5) % Eos % (Auto) (0.7-5.8) Baso % (Auto) (0.1-1.2) % Neut # (Auto) (1.56-6.13) K/mm3 Lymph # (Auto) (1.18-3.74) K/mm3 Terry # (Auto) (0.24-0.36) K/mm3 Eos # (Auto) (0.04-0.36) K/mm3 Baso # (Auto) (0.01-0.08) K/mm3 Manual Slide Review Puncture Site ABG pH (7.35-7.45) ABG pCO2 (35.0-45.0) mmHg ABG pO2 (80.0-100.0) mmHg ABG HCO3 (22.0-26.0) meq/L ABG O2 Saturation (96.0-97.0) % ABG Base Excess (-2-2.0) Kamron Test A-a Gradient mmHg O2 Delivery Device Oxygen Flow Rate FiO2 (21.00-100.00) % Sodium 144 (136-145) mEq/L Potassium 3.0 L (3.5-5.1) mEq/L Chloride 103 (98-107) mEq/L Carbon Dioxide 25 (21-32) mEq/L Anion Gap 19.0 H (5-15) BUN 19 H (7-18) mg/dL Creatinine 0.9 (0.55-1.02) mg/dL Est Cr Clr Drug Dosing 58.32 mL/min Estimated GFR (MDRD) > 60 (>60) mL/min BUN/Creatinine Ratio 21.1 H (14-18) Glucose 206 H (80-115) mg/dL POC Glucose 236 H 193 H (80-115) mg/dL Calcium 8.2 L (8.5-10.1) mg/dL Phosphorus (2.6-4.7) mg/dL Magnesium (1.8-2.4) mg/dl Total Bilirubin 0.3 (0.2-1.0) mg/dL AST 64 H (15-37) U/L ALT 50 (14-59) U/L Alkaline Phosphatase 222 H (46-116) U/L Total Protein 6.1 L (6.4-8.2) g/dl Albumin 2.2 L (3.4-5.0) g/dl Globulin 3.9 gm/dL Albumin/Globulin Ratio 0.6 L (1-2) 09/12/19 09/12/19 09/12/19 Range/Units 11:11 15:59 17:04 WBC (3.98-10.04) K/mm3 RBC (3.98-5.22) M/mm3 Hgb (11.2-15.7) gm/dl Hct (34.1-44.9) % MCV (79.4-94.8) fl MCH (25.6-32.2) pg MCHC (32.2-35.5) g/dl RDW Std Deviation (36.4-46.3) fL Plt Count (182-369) K/mm3 MPV (9.4-12.3) fl Neut % (Auto) (34.0-71.1) % Lymph % (Auto) (19.3-51.7) % Terry % (Auto) (4.7-12.5) % Eos % (Auto) (0.7-5.8) Baso % (Auto) (0.1-1.2) % Neut # (Auto) (1.56-6.13) K/mm3 Lymph # (Auto) (1.18-3.74) K/mm3 Terry # (Auto) (0.24-0.36) K/mm3 Eos # (Auto) (0.04-0.36) K/mm3 Baso # (Auto) (0.01-0.08) K/mm3 Manual Slide Review Puncture Site ABG pH (7.35-7.45) ABG pCO2 (35.0-45.0) mmHg ABG pO2 (80.0-100.0) mmHg ABG HCO3 (22.0-26.0) meq/L ABG O2 Saturation (96.0-97.0) % ABG Base Excess (-2-2.0) Kamron Test A-a Gradient mmHg O2 Delivery Device Oxygen Flow Rate FiO2 (21.00-100.00) % Sodium 142 (136-145) mEq/L Potassium 2.8 L (3.5-5.1) mEq/L Chloride 104 (98-107) mEq/L Carbon Dioxide 31 (21-32) mEq/L Anion Gap 9.8 (5-15) BUN 18 (7-18) mg/dL Creatinine 0.9 (0.55-1.02) mg/dL Est Cr Clr Drug Dosing 58.32 mL/min Estimated GFR (MDRD) > 60 (>60) mL/min BUN/Creatinine Ratio 20.0 H (14-18) Glucose 164 H (80-115) mg/dL POC Glucose 236 H 192 H (80-115) mg/dL Calcium 8.1 L (8.5-10.1) mg/dL Phosphorus (2.6-4.7) mg/dL Magnesium (1.8-2.4) mg/dl Total Bilirubin (0.2-1.0) mg/dL AST (15-37) U/L ALT (14-59) U/L Alkaline Phosphatase (46-116) U/L Total Protein (6.4-8.2) g/dl Albumin (3.4-5.0) g/dl Globulin gm/dL Albumin/Globulin Ratio (1-2) 09/12/19 09/13/19 09/13/19 Range/Units 20:23 04:58 04:58 WBC 3.29 L (3.98-10.04) K/mm3 RBC 4.21 (3.98-5.22) M/mm3 Hgb 11.6 D (11.2-15.7) gm/dl Hct 37.0 (34.1-44.9) % MCV 87.9 (79.4-94.8) fl MCH 27.6 (25.6-32.2) pg MCHC 31.4 L (32.2-35.5) g/dl RDW Std Deviation 47.3 H (36.4-46.3) fL Plt Count 77 L (182-369) K/mm3 MPV 12.0 (9.4-12.3) fl Neut % (Auto) 65.4 (34.0-71.1) % Lymph % (Auto) 24.3 (19.3-51.7) % Terry % (Auto) 8.5 (4.7-12.5) % Eos % (Auto) 1.8 (0.7-5.8) Baso % (Auto) 0.0 L (0.1-1.2) % Neut # (Auto) 2.15 (1.56-6.13) K/mm3 Lymph # (Auto) 0.80 L (1.18-3.74) K/mm3 Terry # (Auto) 0.28 (0.24-0.36) K/mm3 Eos # (Auto) 0.06 (0.04-0.36) K/mm3 Baso # (Auto) 0.00 L (0.01-0.08) K/mm3 Manual Slide Review Abnormal smear Puncture Site ABG pH (7.35-7.45) ABG pCO2 (35.0-45.0) mmHg ABG pO2 (80.0-100.0) mmHg ABG HCO3 (22.0-26.0) meq/L ABG O2 Saturation (96.0-97.0) % ABG Base Excess (-2-2.0) Kamron Test A-a Gradient mmHg O2 Delivery Device Oxygen Flow Rate FiO2 (21.00-100.00) % Sodium 142 (136-145) mEq/L Potassium 3.7 (3.5-5.1) mEq/L Chloride 106 (98-107) mEq/L Carbon Dioxide 30 (21-32) mEq/L Anion Gap 9.7 (5-15) BUN 18 (7-18) mg/dL Creatinine 0.9 (0.55-1.02) mg/dL Est Cr Clr Drug Dosing 58.32 mL/min Estimated GFR (MDRD) > 60 (>60) mL/min BUN/Creatinine Ratio 20.0 H (14-18) Glucose 184 H (80-115) mg/dL POC Glucose 233 H (80-115) mg/dL Calcium 8.0 L (8.5-10.1) mg/dL Phosphorus 2.8 (2.6-4.7) mg/dL Magnesium 2.0 (1.8-2.4) mg/dl Total Bilirubin 0.3 (0.2-1.0) mg/dL AST 55 H (15-37) U/L ALT 45 (14-59) U/L Alkaline Phosphatase 193 H (46-116) U/L Total Protein 5.4 L (6.4-8.2) g/dl Albumin 1.8 L (3.4-5.0) g/dl Globulin 3.6 gm/dL Albumin/Globulin Ratio 0.5 L (1-2) 09/13/19 09/13/19 09/13/19 Range/Units 06:26 08:54 08:57 WBC (3.98-10.04) K/mm3 RBC (3.98-5.22) M/mm3 Hgb (11.2-15.7) gm/dl Hct (34.1-44.9) % MCV (79.4-94.8) fl MCH (25.6-32.2) pg MCHC (32.2-35.5) g/dl RDW Std Deviation (36.4-46.3) fL Plt Count (182-369) K/mm3 MPV (9.4-12.3) fl Neut % (Auto) (34.0-71.1) % Lymph % (Auto) (19.3-51.7) % Terry % (Auto) (4.7-12.5) % Eos % (Auto) (0.7-5.8) Baso % (Auto) (0.1-1.2) % Neut # (Auto) (1.56-6.13) K/mm3 Lymph # (Auto) (1.18-3.74) K/mm3 Terry # (Auto) (0.24-0.36) K/mm3 Eos # (Auto) (0.04-0.36) K/mm3 Baso # (Auto) (0.01-0.08) K/mm3 Manual Slide Review Puncture Site Rt radial ABG pH 7.42 (7.35-7.45) ABG pCO2 46.8 H (35.0-45.0) mmHg ABG pO2 52.0 L (80.0-100.0) mmHg ABG HCO3 29.8 H (22.0-26.0) meq/L ABG O2 Saturation 88.0 L (96.0-97.0) % ABG Base Excess 5.0 H (-2-2.0) Kamron Test Positive A-a Gradient 39 mmHg O2 Delivery Device Room air Oxygen Flow Rate 0.0 FiO2 21.00 (21.00-100.00) % Sodium (136-145) mEq/L Potassium (3.5-5.1) mEq/L Chloride (98-107) mEq/L Carbon Dioxide (21-32) mEq/L Anion Gap (5-15) BUN (7-18) mg/dL Creatinine (0.55-1.02) mg/dL Est Cr Clr Drug Dosing mL/min Estimated GFR (MDRD) (>60) mL/min BUN/Creatinine Ratio (14-18) Glucose (80-115) mg/dL POC Glucose 184 H 201 H (80-115) mg/dL Calcium (8.5-10.1) mg/dL Phosphorus (2.6-4.7) mg/dL Magnesium (1.8-2.4) mg/dl Total Bilirubin (0.2-1.0) mg/dL AST (15-37) U/L ALT (14-59) U/L Alkaline Phosphatase (46-116) U/L Total Protein (6.4-8.2) g/dl Albumin (3.4-5.0) g/dl Globulin gm/dL Albumin/Globulin Ratio (1-2) MEJIA Results - Last 24 hrs: Microbiology 09/10/19 14:10 Aerobic Blood Culture - Preliminary Blood - Venous NO GROWTH AFTER 2 DAYS Anaerobic Blood Culture - Final 09/10/19 12:58 Aerobic Blood Culture - Preliminary Blood - Venous - Lab Draw NO GROWTH AFTER 2 DAYS Anaerobic Blood Culture - Preliminary NO GROWTH AFTER 2 DAYS Med Orders - Current: Current Medications Albuterol/Ipratropium (Duoneb 3.0-0.5 Mg/3 Ml) 3 ml NEB Q4H PRN PRN Reason: Shortness Of Breath/wheezing Alprazolam (Xanax) 0.25 mg PO BID PRN PRN Reason: Anxiety Last Admin: 09/13/19 08:05 Dose: 0.25 mg Cyclobenzaprine HCl (Flexeril) 10 mg PO TID PRN PRN Reason: Pain Last Admin: 09/11/19 13:39 Dose: 10 mg Fluoxetine HCl (Prozac) 80 mg PO DAILY FARHEEN Last Admin: 09/13/19 08:05 Dose: 80 mg Guaifenesin/Phenylephrine HCl (Robitussin Dm) 10 ml PO Q6H PRN PRN Reason: Cough Last Admin: 09/12/19 20:18 Dose: 10 ml Heparin Sodium (Porcine) (Heparin Sodium) 5,000 units SUBCUT Q8H FARHEEN Last Admin: 09/13/19 02:05 Dose: 5,000 units Hydromorphone HCl (Dilaudid) 0.5 mg IVPUSH Q2H PRN PRN Reason: Pain (severe 7-10) Promethazine HCl 6.25 mg/ (Sodium Chloride) 50.25 mls @ 100 mls/hr IV Q6H PRN PRN Reason: Nausea/Vomiting Ibuprofen (Motrin) 600 mg PO Q6H PRN PRN Reason: Pain (moderate 4-6) Insulin Glargine (Lantus) 30 unit SUBCUT DAILY [facility] Last Admin: 09/13/19 08:05 Dose: 30 units Insulin Human Lispro (Humalog) 0 unit SUBCUT QIDACANDBED [facility]; Protocol Last Admin: 09/13/19 06:27 Dose: 3 units Mometasone Furoate/Formoterol Fumar (Dulera 100-5 Mcg) 2 puff IH BID [facility] Last Admin: 09/13/19 08:10 Dose: 2 puff Nystatin (Nystop) 3 gm TOP TID [facility] Last Admin: 09/13/19 08:05 Dose: 1 applic Ondansetron HCl (Zofran) 4 mg IV Q6H PRN PRN Reason: Nausea/Vomiting Oseltamivir Phosphate (Tamiflu) 75 mg PO BID [facility] Stop: 09/17/19 09:01 Last Admin: 09/13/19 08:05 Dose: 75 mg Pantoprazole Sodium (Protonix) 40 mg PO BIDAC [facility] Last Admin: 09/13/19 06:28 Dose: 40 mg Dulaglutide [ Trulicity] Injection 1.5 Mg Pen 0 each SUBCUT TU [facility] Last Admin: 09/11/19 21:37 Dose: Not Given Pregabalin (Lyrica) 300 mg PO BID [facility] Last Admin: 09/13/19 08:05 Dose: 300 mg Rosuvastatin Calcium (Crestor) 20 mg PO BEDTIME [facility] Last Admin: 09/12/19 20:18 Dose: 20 mg Discontinued Medications Aripiprazole (Abilify) 40 mg PO ONETIME ONE Stop: 09/11/19 13:31 Last Admin: 09/11/19 13:39 Dose: 40 mg Aripiprazole (Abilify) 40 mg PO DAILY [facility] Last Admin: 09/12/19 08:05 Dose: 40 mg Haloperidol Lactate (Haldol) 5 mg IM ONETIME ONE Stop: 09/11/19 13:38 Last Admin: 09/11/19 14:19 Dose: Not Given Hydromorphone HCl (Dilaudid) 0.5 mg IVPUSH ONETIME ONE Stop: 09/10/19 14:21 Last Admin: 09/10/19 14:47 Dose: 0.5 mg Hydroxyzine HCl (Atarax) 25 mg PO TID PRN PRN Reason: anxiety Sodium Chloride (Normal Saline) 1,000 mls @ 999 mls/hr IV ASDIRECTED [facility] Last Admin: 09/10/19 13:20 Dose: 999 mls/hr Insulin Human Regular 100 unit (/ Sodium Chloride) 100 mls @ 10.7 mls/hr IV TITRATE [facility]; Protocol Insulin Human Regular 100 unit (/ Sodium Chloride) 100 mls @ 10 mls/hr IV TITRATE [facility]; Protocol Last Titration: 09/11/19 09:05 Dose: 0 unit/hr, 0 mls/hr Sodium Chloride (Normal Saline) 1,000 mls @ 999 mls/hr IV ASDIRECTED [facility] Last Admin: 09/10/19 15:30 Dose: 999 mls/hr Potassium Chloride 10 meq/ (Premix) 100 mls @ 100 mls/hr IV Q1H [facility] Stop: 09/10/19 18:14 Last Admin: 09/10/19 18:29 Dose: 100 mls/hr Lactated Ringer's (Ringers, Lactated) 1,000 mls @ 125 mls/hr IV ASDIRECTED [facility] Last Admin: 09/11/19 02:39 Dose: 125 mls/hr Sodium Bicarbonate 150 meq/ (Dextrose/Water) 1,150 mls @ 50 mls/hr IV ONETIME ONE Stop: 09/11/19 17:11 Last Admin: 09/10/19 18:31 Dose: 50 mls/hr Dextrose/Water (Dextrose 5% In Water) 1,000 mls @ 150 mls/hr IV ASDIRECTED [facility] Last Admin: 09/11/19 03:36 Dose: 150 mls/hr Potassium Chloride 10 meq/ (Premix) 100 mls @ 100 mls/hr IV Q1H [facility] Stop: 09/11/19 02:59 Last Admin: 09/11/19 02:37 Dose: 100 mls/hr Magnesium Sulfate 2 gm/ Premix 50 mls @ 25 mls/hr IV ONETIME ONE Stop: 09/11/19 09:05 Last Admin: 09/11/19 08:58 Dose: 25 mls/hr Lactated Ringer's (Ringers, Lactated) 1,000 mls @ 25 mls/hr IV ASDIRECTED [facility] Last Admin: 09/11/19 09:26 Dose: 25 mls/hr Insulin Glargine (Lantus) 20 unit SUBCUT DAILY [facility] Last Admin: 09/11/19 09:20 Dose: 20 units Insulin Glargine (Lantus) 25 unit SUBCUT DAILY [facility] Last Admin: 09/12/19 08:04 Dose: 25 units Non-Formulary Medication (Aripiprazole) 10 mg PO DAILY [facility] Non-Formulary Medication (Clonidine.) 0.1 mg PO BID [facility] Olanzapine (Zyprexa) 10 mg IM ONETIME ONE Stop: 09/11/19 12:01 Last Admin: 09/11/19 11:56 Dose: 10 mg Pantoprazole Sodium (Protonix Iv) 40 mg IV Q12H [facility] Last Admin: 09/11/19 20:29 Dose: Not Given Potassium Chloride (Klor-Con M20) 60 meq PO ONETIME ONE Stop: 09/10/19 22:58 Last Admin: 09/10/19 23:10 Dose: 60 meq Potassium Chloride (Klor-Con M20) 80 meq PO BID [facility] Stop: 09/13/19 09:01 Last Admin: 09/13/19 08:04 Dose: 80 meq Risperidone (Risperidal) 3 mg PO BID [facility] Last Admin: 09/12/19 08:06 Dose: 3 mg Sodium Phosphate (Neutra-Phos) 500 mg PO ONETIME ONE Stop: 09/11/19 07:07 Last Admin: 09/11/19 09:13 Dose: 500 mg Sodium Phosphate (Neutra-Phos) 250 mg PO BID [facility] Stop: 09/12/19 21:01 Last Admin: 09/12/19 20:17 Dose: 250 mg
--- NOTE | 2019-09-13 09:08 | PCM.DCSUM1 ---
<Jerzy Trejo - Last Filed: 09/13/19 15:26> Discharge Summary - Discharge Data Discharge Disposition: DC/Tfer to Acute Hospital 02 Condition: Good - Referral to Home Health Primary Care Physician: Collin Hodge MD - Patient Summary/Data Consults: Consultations 09/10/19 17:13 Consult to Case Management/Chef Saucier [CONS] Routine Consult to Diabetic Nurse Specialist [CONS] Routine Consult to Operations Lieutenant [CONS] Routine Consult to Spiritual Care [CONS] Routine OT Evaluation and Treatment [CONS] Routine PT Evaluation and Treatment [CONS] Routine 09/12/19 11:52 Consult to Physician [CONS] Stat - Discharge Plan Home Medications: Home Meds Cyclobenzaprine [Flexeril] 10 mg PO TID PRN 09/01/16 [History] Pregabalin [Lyrica] 300 mg PO BID 09/01/16 [History] Dulaglutide [Trulicity] 1.5 mg SQ TU 06/28/19 [History] Fluticasone/Vilanterol [Breo Ellipta 100-25 MCG Inhalation Kit] 1 each IH ASDIRECTED 09/10/19 [History] Rosuvastatin Calcium 20 mg PO BEDTIME 09/10/19 [History] ALPRAZolam [Alprazolam] 0.25 mg PO BID PRN 09/11/19 [History] FLUoxetine HCl [Fluoxetine HCl] 80 mg PO DAILY 09/11/19 [History] hydrOXYzine HCL [Hydroxyzine HCl] 25 mg PO TID PRN 09/11/19 [History] Insulin Glarg,Human.Rec.Analog [Lantus] 30 unit SUBCUT DAILY ml 09/13/19 [Rx] Insulin Lispro [HumaLOG] See Protocol SUBCUT QIDACANDBED #1 vial 09/13/19 [Rx] Nystatin [Nystop] 3 gm TOP TID bottle 09/13/19 [Rx] Oseltamivir [Tamiflu] 75 mg PO BID cap 09/13/19 [Rx] Patient Handouts: Acute Kidney Injury, Adult, Influenza, Adult, [id number], Skin Yeast Infection, Delirium, Preventing Diabetic Ketoacidosis, Obesity, Adult , [id number] Referrals: Collin Hodge MD [Primary Care Provider] - - Patient Data Vitals - Most Recent: Last Vital Signs Temp 98.1 F 09/13/19 08:19 Pulse 94 09/13/19 07:00 Resp 18 09/13/19 08:19 BP 93/63 09/13/19 08:19 Pulse Ox 92 L 09/13/19 09:03 I&O - Last 24 hours: Intake & Output 09/13/19 09/13/19 09/13/19 06:59 14:59 22:59 Intake Total 400 Balance 400 Lab Results - Last 24 hrs: Laboratory Results - last 24 hr 09/12/19 09/12/19 09/12/19 Range/Units 15:59 17:04 20:23 WBC (3.98-10.04) K/mm3 RBC (3.98-5.22) M/mm3 Hgb (11.2-15.7) gm/dl Hct (34.1-44.9) % MCV (79.4-94.8) fl MCH (25.6-32.2) pg MCHC (32.2-35.5) g/dl RDW Std Deviation (36.4-46.3) fL Plt Count (182-369) K/mm3 MPV (9.4-12.3) fl Neut % (Auto) (34.0-71.1) % Lymph % (Auto) (19.3-51.7) % [place] % (Auto) (4.7-12.5) % Eos % (Auto) (0.7-5.8) Baso % (Auto) (0.1-1.2) % Neut # (Auto) (1.56-6.13) K/mm3 Lymph # (Auto) (1.18-3.74) K/mm3 [place] # (Auto) (0.24-0.36) K/mm3 Eos # (Auto) (0.04-0.36) K/mm3 Baso # (Auto) (0.01-0.08) K/mm3 Manual Slide Review Puncture Site ABG pH (7.35-7.45) ABG pCO2 (35.0-45.0) mmHg ABG pO2 (80.0-100.0) mmHg ABG HCO3 (22.0-26.0) meq/L ABG O2 Saturation (96.0-97.0) % ABG Base Excess (-2-2.0) Kamron Test A-a Gradient mmHg O2 Delivery Device Oxygen Flow Rate FiO2 (21.00-100.00) % Sodium 142 (136-145) mEq/L Potassium 2.8 L (3.5-5.1) mEq/L Chloride 104 (98-107) mEq/L Carbon Dioxide 31 (21-32) mEq/L Anion Gap 9.8 (5-15) BUN 18 (7-18) mg/dL Creatinine 0.9 (0.55-1.02) mg/dL Est Cr Clr Drug Dosing 58.32 mL/min Estimated GFR (MDRD) > 60 (>60) mL/min BUN/Creatinine Ratio 20.0 H (14-18) Glucose 164 H (80-115) mg/dL POC Glucose 192 H 233 H (80-115) mg/dL Calcium 8.1 L (8.5-10.1) mg/dL Phosphorus (2.6-4.7) mg/dL Magnesium (1.8-2.4) mg/dl Total Bilirubin (0.2-1.0) mg/dL AST (15-37) U/L ALT (14-59) U/L Alkaline Phosphatase (46-116) U/L Total Protein (6.4-8.2) g/dl Albumin (3.4-5.0) g/dl Globulin gm/dL Albumin/Globulin Ratio (1-2) 09/13/19 09/13/19 09/13/19 Range/Units 04:58 04:58 06:26 WBC 3.29 L (3.98-10.04) K/mm3 RBC 4.21 (3.98-5.22) M/mm3 Hgb 11.6 D (11.2-15.7) gm/dl Hct 37.0 (34.1-44.9) % MCV 87.9 (79.4-94.8) fl MCH 27.6 (25.6-32.2) pg MCHC 31.4 L (32.2-35.5) g/dl RDW Std Deviation 47.3 H (36.4-46.3) fL Plt Count 77 L (182-369) K/mm3 MPV 12.0 (9.4-12.3) fl Neut % (Auto) 65.4 (34.0-71.1) % Lymph % (Auto) 24.3 (19.3-51.7) % [place] % (Auto) 8.5 (4.7-12.5) % Eos % (Auto) 1.8 (0.7-5.8) Baso % (Auto) 0.0 L (0.1-1.2) % Neut # (Auto) 2.15 (1.56-6.13) K/mm3 Lymph # (Auto) 0.80 L (1.18-3.74) K/mm3 [place] # (Auto) 0.28 (0.24-0.36) K/mm3 Eos # (Auto) 0.06 (0.04-0.36) K/mm3 Baso # (Auto) 0.00 L (0.01-0.08) K/mm3 Manual Slide Review Abnormal smear Puncture Site ABG pH (7.35-7.45) ABG pCO2 (35.0-45.0) mmHg ABG pO2 (80.0-100.0) mmHg ABG HCO3 (22.0-26.0) meq/L ABG O2 Saturation (96.0-97.0) % ABG Base Excess (-2-2.0) Kamron Test A-a Gradient mmHg O2 Delivery Device Oxygen Flow Rate FiO2 (21.00-100.00) % Sodium 142 (136-145) mEq/L Potassium 3.7 (3.5-5.1) mEq/L Chloride 106 (98-107) mEq/L Carbon Dioxide 30 (21-32) mEq/L Anion Gap 9.7 (5-15) BUN 18 (7-18) mg/dL Creatinine 0.9 (0.55-1.02) mg/dL Est Cr Clr Drug Dosing 58.32 mL/min Estimated GFR (MDRD) > 60 (>60) mL/min BUN/Creatinine Ratio 20.0 H (14-18) Glucose 184 H (80-115) mg/dL POC Glucose 184 H (80-115) mg/dL Calcium 8.0 L (8.5-10.1) mg/dL Phosphorus 2.8 (2.6-4.7) mg/dL Magnesium 2.0 (1.8-2.4) mg/dl Total Bilirubin 0.3 (0.2-1.0) mg/dL AST 55 H (15-37) U/L ALT 45 (14-59) U/L Alkaline Phosphatase 193 H (46-116) U/L Total Protein 5.4 L (6.4-8.2) g/dl Albumin 1.8 L (3.4-5.0) g/dl Globulin 3.6 gm/dL Albumin/Globulin Ratio 0.5 L (1-2) 09/13/19 09/13/19 Range/Units 08:54 08:57 WBC (3.98-10.04) K/mm3 RBC (3.98-5.22) M/mm3 Hgb (11.2-15.7) gm/dl Hct (34.1-44.9) % MCV (79.4-94.8) fl MCH (25.6-32.2) pg MCHC (32.2-35.5) g/dl RDW Std Deviation (36.4-46.3) fL Plt Count (182-369) K/mm3 MPV (9.4-12.3) fl Neut % (Auto) (34.0-71.1) % Lymph % (Auto) (19.3-51.7) % [place] % (Auto) (4.7-12.5) % Eos % (Auto) (0.7-5.8) Baso % (Auto) (0.1-1.2) % Neut # (Auto) (1.56-6.13) K/mm3 Lymph # (Auto) (1.18-3.74) K/mm3 [place] # (Auto) (0.24-0.36) K/mm3 Eos # (Auto) (0.04-0.36) K/mm3 Baso # (Auto) (0.01-0.08) K/mm3 Manual Slide Review Puncture Site Rt radial ABG pH 7.42 (7.35-7.45) ABG pCO2 46.8 H (35.0-45.0) mmHg ABG pO2 52.0 L (80.0-100.0) mmHg ABG HCO3 29.8 H (22.0-26.0) meq/L ABG O2 Saturation 88.0 L (96.0-97.0) % ABG Base Excess 5.0 H (-2-2.0) Kamron Test Positive A-a Gradient 39 mmHg O2 Delivery Device Room air Oxygen Flow Rate 0.0 FiO2 21.00 (21.00-100.00) % Sodium (136-145) mEq/L Potassium (3.5-5.1) mEq/L Chloride (98-107) mEq/L Carbon Dioxide (21-32) mEq/L Anion Gap (5-15) BUN (7-18) mg/dL Creatinine (0.55-1.02) mg/dL Est Cr Clr Drug Dosing mL/min Estimated GFR (MDRD) (>60) mL/min BUN/Creatinine Ratio (14-18) Glucose (80-115) mg/dL POC Glucose 201 H (80-115) mg/dL Calcium (8.5-10.1) mg/dL Phosphorus (2.6-4.7) mg/dL Magnesium (1.8-2.4) mg/dl Total Bilirubin (0.2-1.0) mg/dL AST (15-37) U/L ALT (14-59) U/L Alkaline Phosphatase (46-116) U/L Total Protein (6.4-8.2) g/dl Albumin (3.4-5.0) g/dl Globulin gm/dL Albumin/Globulin Ratio (1-2) MEJIA Results - Last 24 hrs: Microbiology 09/10/19 14:10 Aerobic Blood Culture - Preliminary Blood - Venous NO GROWTH AFTER 3 DAYS Anaerobic Blood Culture - Final 09/10/19 12:58 Aerobic Blood Culture - Preliminary Blood - Venous - Lab Draw NO GROWTH AFTER 3 DAYS Anaerobic Blood Culture - Preliminary NO GROWTH AFTER 3 DAYS Med Orders - Current: Current Medications Discontinued Medications Albuterol/Ipratropium (Duoneb 3.0-0.5 Mg/3 Ml) 3 ml NEB Q4H PRN PRN Reason: Shortness Of Breath/wheezing Alprazolam (Xanax) 0.25 mg PO BID PRN PRN Reason: Anxiety Last Admin: 09/13/19 08:05 Dose: 0.25 mg Aripiprazole (Abilify) 40 mg PO ONETIME ONE Stop: 09/11/19 13:31 Last Admin: 09/11/19 13:39 Dose: 40 mg Aripiprazole (Abilify) 40 mg PO DAILY FARHEEN Last Admin: 01/08/20 08:05 Dose: 40 mg Cyclobenzaprine HCl (Flexeril) 10 mg PO TID PRN PRN Reason: Pain Last Admin: 09/11/19 13:39 Dose: 10 mg Fluoxetine HCl (Prozac) 80 mg PO DAILY FARHEEN Last Admin: 09/13/19 08:05 Dose: 80 mg Guaifenesin/Phenylephrine HCl (Robitussin Dm) 10 ml PO Q6H PRN PRN Reason: Cough Last Admin: 09/12/19 20:18 Dose: 10 ml Haloperidol Lactate (Haldol) 5 mg IM ONETIME ONE Stop: 09/11/19 13:38 Last Admin: 09/11/19 14:19 Dose: Not Given Heparin Sodium (Porcine) (Heparin Sodium) 5,000 units SUBCUT Q8H FARHEEN Last Admin: 09/13/19 10:06 Dose: Not Given Hydromorphone HCl (Dilaudid) 0.5 mg IVPUSH ONETIME ONE Stop: 09/10/19 14:21 Last Admin: 09/10/19 14:47 Dose: 0.5 mg Hydromorphone HCl (Dilaudid) 0.5 mg IVPUSH Q2H PRN PRN Reason: Pain (severe 7-10) Hydroxyzine HCl (Atarax) 25 mg PO TID PRN PRN Reason: anxiety Sodium Chloride (Normal Saline) 1,000 mls @ 999 mls/hr IV ASDIRECTED [facility] Last Admin: 09/10/19 13:20 Dose: 999 mls/hr Insulin Human Regular 100 unit (/ Sodium Chloride) 100 mls @ 10.7 mls/hr IV TITRATE FARHEEN; Protocol Insulin Human Regular 100 unit (/ Sodium Chloride) 100 mls @ 10 mls/hr IV TITRATE FARHEEN; Protocol Last Titration: 09/11/19 09:05 Dose: 0 unit/hr, 0 mls/hr Sodium Chloride (Normal Saline) 1,000 mls @ 999 mls/hr IV ASDIRECTED [facility] Last Admin: 09/10/19 15:30 Dose: 999 mls/hr Potassium Chloride 10 meq/ (Premix) 100 mls @ 100 mls/hr IV Q1H FARHEEN Stop: 09/10/19 18:14 Last Admin: 09/10/19 18:29 Dose: 100 mls/hr Lactated Ringer's (Ringers, Lactated) 1,000 mls @ 125 mls/hr IV ASDIRECTED [facility] Last Admin: 09/11/19 02:39 Dose: 125 mls/hr Promethazine HCl 6.25 mg/ (Sodium Chloride) 50.25 mls @ 100 mls/hr IV Q6H PRN PRN Reason: Nausea/Vomiting Sodium Bicarbonate 150 meq/ (Dextrose/Water) 1,150 mls @ 50 mls/hr IV ONETIME ONE Stop: 09/11/19 17:11 Last Admin: 09/10/19 18:31 Dose: 50 mls/hr Dextrose/Water (Dextrose 5% In Water) 1,000 mls @ 150 mls/hr IV ASDIRECTED [facility] Last Admin: 09/11/19 03:36 Dose: 150 mls/hr Potassium Chloride 10 meq/ (Premix) 100 mls @ 100 mls/hr IV Q1H [facility] Stop: 09/11/19 02:59 Last Admin: 09/11/19 02:37 Dose: 100 mls/hr Magnesium Sulfate 2 gm/ Premix 50 mls @ 25 mls/hr IV ONETIME ONE Stop: 09/11/19 09:05 Last Admin: 09/11/19 08:58 Dose: 25 mls/hr Lactated Ringer's (Ringers, Lactated) 1,000 mls @ 25 mls/hr IV ASDIRECTED [facility] Last Admin: 09/11/19 09:26 Dose: 25 mls/hr Ibuprofen (Motrin) 600 mg PO Q6H PRN PRN Reason: Pain (moderate 4-6) Insulin Glargine (Lantus) 20 unit SUBCUT DAILY [facility] Last Admin: 09/11/19 09:20 Dose: 20 units Insulin Glargine (Lantus) 25 unit SUBCUT DAILY [facility] Last Admin: 09/12/19 08:04 Dose: 25 units Insulin Glargine (Lantus) 30 unit SUBCUT DAILY [facility] Last Admin: 09/13/19 08:05 Dose: 30 units Insulin Human Lispro (Humalog) 0 unit SUBCUT QIDACANDBED [facility]; Protocol Last Admin: 09/13/19 06:27 Dose: 3 units Mometasone Furoate/Formoterol Fumar (Dulera 100-5 Mcg) 2 puff IH BID [facility] Last Admin: 09/13/19 08:10 Dose: 2 puff Non-Formulary Medication (Aripiprazole) 10 mg PO DAILY [facility] Non-Formulary Medication (Clonidine.) 0.1 mg PO BID [facility] Nystatin (Nystop) 3 gm TOP TID [facility] Last Admin: 09/13/19 08:05 Dose: 1 applic Olanzapine (Zyprexa) 10 mg IM ONETIME ONE Stop: 09/11/19 12:01 Last Admin: 09/11/19 11:56 Dose: 10 mg Ondansetron HCl (Zofran) 4 mg IV Q6H PRN PRN Reason: Nausea/Vomiting Oseltamivir Phosphate (Tamiflu) 75 mg PO BID [facility] Stop: 09/17/19 09:01 Last Admin: 09/13/19 08:05 Dose: 75 mg Pantoprazole Sodium (Protonix Iv) 40 mg IV Q12H [facility] Last Admin: 09/11/19 20:29 Dose: Not Given Pantoprazole Sodium (Protonix) 40 mg PO BIDAC [facility] Last Admin: 09/13/19 06:28 Dose: 40 mg Dulaglutide [ Trulicity] Injection 1.5 Mg Pen 0 each SUBCUT TU [facility] Last Admin: 09/11/19 21:37 Dose: Not Given Potassium Chloride (Klor-Con M20) 60 meq PO ONETIME ONE Stop: 09/10/19 22:58 Last Admin: 09/10/19 23:10 Dose: 60 meq Potassium Chloride (Klor-Con M20) 80 meq PO BID [facility] Stop: 09/13/19 09:01 Last Admin: 09/13/19 08:04 Dose: 80 meq Pregabalin (Lyrica) 300 mg PO BID [facility] Last Admin: 09/13/19 08:05 Dose: 300 mg Risperidone (Risperidal) 3 mg PO BID [facility] Last Admin: 09/12/19 08:06 Dose: 3 mg Rosuvastatin Calcium (Crestor) 20 mg PO BEDTIME [facility] Last Admin: 09/12/19 20:18 Dose: 20 mg Sodium Phosphate (Neutra-Phos) 500 mg PO ONETIME ONE Stop: 09/11/19 07:07 Last Admin: 09/11/19 09:13 Dose: 500 mg Sodium Phosphate (Neutra-Phos) 250 mg PO BID [facility] Stop: 09/12/19 21:01 Last Admin: 09/12/19 20:17 Dose: 250 mg <Kimberly Anguiano T - Last Filed: 09/14/19 11:33> Discharge Summary - Hospital Course Brief History: This is a 64 yo white female with past medical hx/o Impaired Vision, HLD, COPD, Hypothyroidism, Urinary Incontinence, Recurrent UTI, Hx/o Pyelonephritis, Fibromyalgia, Seizure, Schizophrenia/Schizoaffective Disorder, Muscle Spasm, Anxiety, Depression, and Obesity who was brought in by a concerned neighbor due to feeling ill for the past 2 weeks. Her symptoms gradually worsened in the past couple of days. States she has been having abdominal pain associated with nausea, vomiting, and diarrhea. She also has been extremely thirsty and report increased fluid intake. Her appetite was poor due to GI symptoms. Additionally, she had tremors on her right arm when her neighbors checked on her today. HPI is incomplete with patient being sedated/ lethargic. Her initial work up in ED shows a CBC remarkable for WBC of 14.86, RBC of 5.92, Hgb of 16.4, Hct of 49.6, MPV of 13.2, Neutrophils of 84.6%, Lymphocytes of 7.9%, Neutrophil # of 12.57, Lymphocyte # of 1.17, and Monocyte # of 1.07. Her coagulation studies show PT of 13.9 and INR of 1.29. Her ABG shows pH of 7.4, pCO2 of 38.5, HCO3 of 17.3, and O2 Sat of 94.4% on RA. Her Chemistry is significant for Cl of 95, AG of 31.8, BUN of 28, Cr of 1.5, BS of 677, Serum Osm of 351, LA of 2.7, Phos of 4.8, AST of 60, ALT of 70, Alk Phos of 257, ProBNP of 170, Total Protein of 8.5, and Albumin of 3.1. Her A1C is 10.90 with Ketones of 14.52. Her UA is not suggestive of UTI. Her chest x-ray and head CT scan reports read as nothing acute is appreciated. Patient received initial treatment in ED before coming to the unit for further management of DKA. Diagnosis: Stroke: No Modified Kingston Scale: No Symptoms at All Modified Kingston Scale Score: 0 - Discharge Data Discharge Date: 09/13/19 - Referral to Home Health Primary Care Physician: Collin Hodge MD - Patient Summary/Data Operative Procedure(s) Performed: None Complications: None Consults: Consultations 09/10/19 17:13 Consult to Case Management/Chef Saucier [CONS] Routine Consult to Diabetic Nurse Specialist [CONS] Routine Consult to Operations Lieutenant [CONS] Routine Consult to Spiritual Care [CONS] Routine OT Evaluation and Treatment [CONS] Routine PT Evaluation and Treatment [CONS] Routine 09/12/19 11:52 Consult to Physician [CONS] Stat Labs Pending at D/C: None Hospital Course: Patient was primarily managed with DKA Protocol to resolve her ketoacidosis as well as acute kidney injury from volume depletion and right away she improved on this regimen. She also received nystatin powder for cutaneous candidiasis and Tamiflu for influenza B infection. Her hospital course was fairly uncomplicated but she developed acute psychosis due to underlying schizophrenia. However we were able to stabilize her with a one time dose of 10 mg Zyprexa along with her other psychiatric medications. During this hospitalization we were concerned about her mental stability and therefore we consulted Tele-psych. Dr. Jurado trimmed her psychiatric regimen and recommended inpatient psych treatment. Once medically stable, we tried to ship her to [facility] but without any success. We then tried the [facility] and Dr. Veras, attending psychiatrist, agreed to accept her during the doc-to-doc transfer communication. Patient was released with a LA and SA insulin regimen to continue with diabetes management and Tamiflu for influenza infection. She was transported via ambulance equipped with appropriate medical personnel when she left our facility. - Patient Instructions Diet: Heart Healthy Diet, Diabetic Diet, Weight Loss Diet Activity: As Tolerated Driving: Do Not Drive Showering/Bathing: May Shower Notify Provider of: Fever, Increased Pain, Swelling and Redness, Drainage, Nausea and/or Vomiting Other/Special Instructions: Transfer to [facility] under the services of Dr. Presley, Attending Psychiatrist - Discharge Plan *PRESCRIPTION DRUG MONITORING PROGRAM REVIEWED*: Not Applicable *COPY OF PRESCRIPTION DRUG MONITORING REPORT IN PATIENT [place]: Not Applicable Oxygen Therapy Mode: Room Air - Discharge Summary/Plan Comment DC Time >30 min.: Yes (35 mins) Discharge Summary/Plan Comment: Transfer to [facility] for psych inpatient treatment under the services of Dr. Presley , Attending Psych. - General Info Date of Service: 09/20/19 Admission Dx/Problem (Free Text: Admission Diagnosis/Problem Admission Diagnosis/Problem Diabetic ketoacidosis Subjective Update: Follow Up Functional Status: Reports: Pain Controlled, Tolerating Diet, Ambulating, Urinating. Denies: New Symptoms - Review of Systems General: Denies: Fever, Chills HEENT: Reports: No Symptoms Pulmonary: Denies: Shortness of Breath Cardiovascular: Denies: Chest Pain, Dyspnea on Exertion, Lightheadedness Gastrointestinal: Denies: Abdominal Pain, Nausea, Vomiting Genitourinary: Reports: No Symptoms Musculoskeletal: Reports: No Symptoms Skin: Reports: Rash Neurological: Reports: Gait Disturbance Psychiatric: Denies: Depression, Anxiety, Agitation, Hallucinations Systems Review Comment: No overnight or acute issues. She seems to be at her baseline. Her K improves to 3.7. She remains afebrile and comfortable sitting up in chair. She has no complaints. - Patient Data Vitals - Most Recent: Last Vital Signs Temp 36.7 C 09/13/19 08:19 Pulse 94 09/13/19 07:00 Resp 18 09/13/19 08:19 BP 93/63 09/13/19 08:19 Pulse Ox 92 L 09/13/19 08:19 Weight - Most Recent: 112.219 kg I&O - Last 24 hours: Intake & Output 09/12/19 09/13/19 09/13/19 22:59 06:59 14:59 Intake Total 520 400 Balance 520 400 Lab Results - Last 24 hrs: Laboratory Results - last 24 hr 09/12/19 09/12/19 09/12/19 Range/Units 04:30 06:20 09:33 WBC (3.98-10.04) K/mm3 RBC (3.98-5.22) M/mm3 Hgb (11.2-15.7) gm/dl Hct (34.1-44.9) % MCV (79.4-94.8) fl MCH (25.6-32.2) pg MCHC (32.2-35.5) g/dl RDW Std Deviation (36.4-46.3) fL Plt Count (182-369) K/mm3 MPV (9.4-12.3) fl Neut % (Auto) (34.0-71.1) % Lymph % (Auto) (19.3-51.7) % [place] % (Auto) (4.7-12.5) % Eos % (Auto) (0.7-5.8) Baso % (Auto) (0.1-1.2) % Neut # (Auto) (1.56-6.13) K/mm3 Lymph # (Auto) (1.18-3.74) K/mm3 [place] # (Auto) (0.24-0.36) K/mm3 Eos # (Auto) (0.04-0.36) K/mm3 Baso # (Auto) (0.01-0.08) K/mm3 Manual Slide Review Puncture Site ABG pH (7.35-7.45) ABG pCO2 (35.0-45.0) mmHg ABG pO2 (80.0-100.0) mmHg ABG HCO3 (22.0-26.0) meq/L ABG O2 Saturation (96.0-97.0) % ABG Base Excess (-2-2.0) Kamron Test A-a Gradient mmHg O2 Delivery Device Oxygen Flow Rate FiO2 (21.00-100.00) % Sodium 144 (136-145) mEq/L Potassium 3.0 L (3.5-5.1) mEq/L Chloride 103 (98-107) mEq/L Carbon Dioxide 25 (21-32) mEq/L Anion Gap 19.0 H (5-15) BUN 19 H (7-18) mg/dL Creatinine 0.9 (0.55-1.02) mg/dL Est Cr Clr Drug Dosing 58.32 mL/min Estimated GFR (MDRD) > 60 (>60) mL/min BUN/Creatinine Ratio 21.1 H (14-18) Glucose 206 H (80-115) mg/dL POC Glucose 236 H 193 H (80-115) mg/dL Calcium 8.2 L (8.5-10.1) mg/dL Phosphorus (2.6-4.7) mg/dL Magnesium (1.8-2.4) mg/dl Total Bilirubin 0.3 (0.2-1.0) mg/dL AST 64 H (15-37) U/L ALT 50 (14-59) U/L Alkaline Phosphatase 222 H (46-116) U/L Total Protein 6.1 L (6.4-8.2) g/dl Albumin 2.2 L (3.4-5.0) g/dl Globulin 3.9 gm/dL Albumin/Globulin Ratio 0.6 L (1-2) 09/12/19 09/12/19 09/12/19 Range/Units 11:11 15:59 17:04 WBC (3.98-10.04) K/mm3 RBC (3.98-5.22) M/mm3 Hgb (11.2-15.7) gm/dl Hct (34.1-44.9) % MCV (79.4-94.8) fl MCH (25.6-32.2) pg MCHC (32.2-35.5) g/dl RDW Std Deviation (36.4-46.3) fL Plt Count (182-369) K/mm3 MPV (9.4-12.3) fl Neut % (Auto) (34.0-71.1) % Lymph % (Auto) (19.3-51.7) % [place] % (Auto) (4.7-12.5) % Eos % (Auto) (0.7-5.8) Baso % (Auto) (0.1-1.2) % Neut # (Auto) (1.56-6.13) K/mm3 Lymph # (Auto) (1.18-3.74) K/mm3 [place] # (Auto) (0.24-0.36) K/mm3 Eos # (Auto) (0.04-0.36) K/mm3 Baso # (Auto) (0.01-0.08) K/mm3 Manual Slide Review Puncture Site ABG pH (7.35-7.45) ABG pCO2 (35.0-45.0) mmHg ABG pO2 (80.0-100.0) mmHg ABG HCO3 (22.0-26.0) meq/L ABG O2 Saturation (96.0-97.0) % ABG Base Excess (-2-2.0) Kamron Test A-a Gradient mmHg O2 Delivery Device Oxygen Flow Rate FiO2 (21.00-100.00) % Sodium 142 (136-145) mEq/L Potassium 2.8 L (3.5-5.1) mEq/L Chloride 104 (98-107) mEq/L Carbon Dioxide 31 (21-32) mEq/L Anion Gap 9.8 (5-15) BUN 18 (7-18) mg/dL Creatinine 0.9 (0.55-1.02) mg/dL Est Cr Clr Drug Dosing 58.32 mL/min Estimated GFR (MDRD) > 60 (>60) mL/min BUN/Creatinine Ratio 20.0 H (14-18) Glucose 164 H (80-115) mg/dL POC Glucose 236 H 192 H (80-115) mg/dL Calcium 8.1 L (8.5-10.1) mg/dL Phosphorus (2.6-4.7) mg/dL Magnesium (1.8-2.4) mg/dl Total Bilirubin (0.2-1.0) mg/dL AST (15-37) U/L ALT (14-59) U/L Alkaline Phosphatase (46-116) U/L Total Protein (6.4-8.2) g/dl Albumin (3.4-5.0) g/dl Globulin gm/dL Albumin/Globulin Ratio (1-2) 09/12/19 09/13/19 09/13/19 Range/Units 20:23 04:58 04:58 WBC 3.29 L (3.98-10.04) K/mm3 RBC 4.21 (3.98-5.22) M/mm3 Hgb 11.6 D (11.2-15.7) gm/dl Hct 37.0 (34.1-44.9) % MCV 87.9 (79.4-94.8) fl MCH 27.6 (25.6-32.2) pg MCHC 31.4 L (32.2-35.5) g/dl RDW Std Deviation 47.3 H (36.4-46.3) fL Plt Count 77 L (182-369) K/mm3 MPV 12.0 (9.4-12.3) fl Neut % (Auto) 65.4 (34.0-71.1) % Lymph % (Auto) 24.3 (19.3-51.7) % [place] % (Auto) 8.5 (4.7-12.5) % Eos % (Auto) 1.8 (0.7-5.8) Baso % (Auto) 0.0 L (0.1-1.2) % Neut # (Auto) 2.15 (1.56-6.13) K/mm3 Lymph # (Auto) 0.80 L (1.18-3.74) K/mm3 [place] # (Auto) 0.28 (0.24-0.36) K/mm3 Eos # (Auto) 0.06 (0.04-0.36) K/mm3 Baso # (Auto) 0.00 L (0.01-0.08) K/mm3 Manual Slide Review Abnormal smear Puncture Site ABG pH (7.35-7.45) ABG pCO2 (35.0-45.0) mmHg ABG pO2 (80.0-100.0) mmHg ABG HCO3 (22.0-26.0) meq/L ABG O2 Saturation (96.0-97.0) % ABG Base Excess (-2-2.0) Kamorn Test A-a Gradient mmHg O2 Delivery Device Oxygen Flow Rate FiO2 (21.00-100.00) % Sodium 142 (136-145) mEq/L Potassium 3.7 (3.5-5.1) mEq/L Chloride 106 (98-107) mEq/L Carbon Dioxide 30 (21-32) mEq/L Anion Gap 9.7 (5-15) BUN 18 (7-18) mg/dL Creatinine 0.9 (0.55-1.02) mg/dL Est Cr Clr Drug Dosing 58.32 mL/min Estimated GFR (MDRD) > 60 (>60) mL/min BUN/Creatinine Ratio 20.0 H (14-18) Glucose 184 H (80-115) mg/dL POC Glucose 233 H (80-115) mg/dL Calcium 8.0 L (8.5-10.1) mg/dL Phosphorus 2.8 (2.6-4.7) mg/dL Magnesium 2.0 (1.8-2.4) mg/dl Total Bilirubin 0.3 (0.2-1.0) mg/dL AST 55 H (15-37) U/L ALT 45 (14-59) U/L Alkaline Phosphatase 193 H (46-116) U/L Total Protein 5.4 L (6.4-8.2) g/dl Albumin 1.8 L (3.4-5.0) g/dl Globulin 3.6 gm/dL Albumin/Globulin Ratio 0.5 L (1-2) 09/13/19 09/13/19 09/13/19 Range/Units 06:26 08:54 08:57 WBC (3.98-10.04) K/mm3 RBC (3.98-5.22) M/mm3 Hgb (11.2-15.7) gm/dl Hct (34.1-44.9) % MCV (79.4-94.8) fl MCH (25.6-32.2) pg MCHC (32.2-35.5) g/dl RDW Std Deviation (36.4-46.3) fL Plt Count (182-369) K/mm3 MPV (9.4-12.3) fl Neut % (Auto) (34.0-71.1) % Lymph % (Auto) (19.3-51.7) % [place] % (Auto) (4.7-12.5) % Eos % (Auto) (0.7-5.8) Baso % (Auto) (0.1-1.2) % Neut # (Auto) (1.56-6.13) K/mm3 Lymph # (Auto) (1.18-3.74) K/mm3 [place] # (Auto) (0.24-0.36) K/mm3 Eos # (Auto) (0.04-0.36) K/mm3 Baso # (Auto) (0.01-0.08) K/mm3 Manual Slide Review Puncture Site Rt radial ABG pH 7.42 (7.35-7.45) ABG pCO2 46.8 H (35.0-45.0) mmHg ABG pO2 52.0 L (80.0-100.0) mmHg ABG HCO3 29.8 H (22.0-26.0) meq/L ABG O2 Saturation 88.0 L (96.0-97.0) % ABG Base Excess 5.0 H (-2-2.0) Kamron Test Positive A-a Gradient 39 mmHg O2 Delivery Device Room air Oxygen Flow Rate 0.0 FiO2 21.00 (21.00-100.00) % Sodium (136-145) mEq/L Potassium (3.5-5.1) mEq/L Chloride (98-107) mEq/L Carbon Dioxide (21-32) mEq/L Anion Gap (5-15) BUN (7-18) mg/dL Creatinine (0.55-1.02) mg/dL Est Cr Clr Drug Dosing mL/min Estimated GFR (MDRD) (>60) mL/min BUN/Creatinine Ratio (14-18) Glucose (80-115) mg/dL POC Glucose 184 H 201 H (80-115) mg/dL Calcium (8.5-10.1) mg/dL Phosphorus (2.6-4.7) mg/dL Magnesium (1.8-2.4) mg/dl Total Bilirubin (0.2-1.0) mg/dL AST (15-37) U/L ALT (14-59) U/L Alkaline Phosphatase (46-116) U/L Total Protein (6.4-8.2) g/dl Albumin (3.4-5.0) g/dl Globulin gm/dL Albumin/Globulin Ratio (1-2) MEJIA Results - Last 24 hrs: Microbiology 09/10/19 14:10 Aerobic Blood Culture - Preliminary Blood - Venous NO GROWTH AFTER 2 DAYS Anaerobic Blood Culture - Final 09/10/19 12:58 Aerobic Blood Culture - Preliminary Blood - Venous - Lab Draw NO GROWTH AFTER 2 DAYS Anaerobic Blood Culture - Preliminary NO GROWTH AFTER 2 DAYS Med Orders - Current: Current Medications Albuterol/Ipratropium (Duoneb 3.0-0.5 Mg/3 Ml) 3 ml NEB Q4H PRN PRN Reason: Shortness Of Breath/wheezing Alprazolam (Xanax) 0.25 mg PO BID PRN PRN Reason: Anxiety Last Admin: 09/13/19 08:05 Dose: 0.25 mg Cyclobenzaprine HCl (Flexeril) 10 mg PO TID PRN PRN Reason: Pain Last Admin: 09/11/19 13:39 Dose: 10 mg Fluoxetine HCl (Prozac) 80 mg PO DAILY FARHEEN Last Admin: 09/13/19 08:05 Dose: 80 mg Guaifenesin/Phenylephrine HCl (Robitussin Dm) 10 ml PO Q6H PRN PRN Reason: Cough Last Admin: 09/12/19 20:18 Dose: 10 ml Heparin Sodium (Porcine) (Heparin Sodium) 5,000 units SUBCUT Q8H FARHEEN Last Admin: 01/09/20 02:05 Dose: 5,000 units Hydromorphone HCl (Dilaudid) 0.5 mg IVPUSH Q2H PRN PRN Reason: Pain (severe 7-10) Promethazine HCl 6.25 mg/ (Sodium Chloride) 50.25 mls @ 100 mls/hr IV Q6H PRN PRN Reason: Nausea/Vomiting Ibuprofen (Motrin) 600 mg PO Q6H PRN PRN Reason: Pain (moderate 4-6) Insulin Glargine (Lantus) 30 unit SUBCUT DAILY [facility] Last Admin: 09/13/19 08:05 Dose: 30 units Insulin Human Lispro (Humalog) 0 unit SUBCUT QIDACANDBED [facility]; Protocol Last Admin: 09/13/19 06:27 Dose: 3 units Mometasone Furoate/Formoterol Fumar (Dulera 100-5 Mcg) 2 puff IH BID [facility] Last Admin: 09/13/19 08:10 Dose: 2 puff Nystatin (Nystop) 3 gm TOP TID [facility] Last Admin: 09/13/19 08:05 Dose: 1 applic Ondansetron HCl (Zofran) 4 mg IV Q6H PRN PRN Reason: Nausea/Vomiting Oseltamivir Phosphate (Tamiflu) 75 mg PO BID [facility] Stop: 09/17/19 09:01 Last Admin: 09/13/19 08:05 Dose: 75 mg [facility]op[facility]ole [facility]) [facility] Last Admin: 09/13/19 06:28 Dose: 40 mg Dulaglutide [ Trulicity] Injection 1.5 Mg Pen 0 each SUBCUT TU [facility] Last Admin: 09/11/19 21:37 Dose: Not Given Pregabalin (Lyrica) 300 mg PO BID [facility] Last Admin: 09/13/19 08:05 Dose: 300 mg Rosuvastatin Calcium (Crestor) 20 mg PO BEDTIME [facility] Last Admin: 09/12/19 20:18 Dose: 20 mg Discontinued Medications Aripiprazole (Abilify) 40 mg PO ONETIME ONE Stop: 09/11/19 13:31 Last Admin: 09/11/19 13:39 Dose: 40 mg Aripiprazole (Abilify) 40 mg PO DAILY [facility] Last Admin: 09/12/19 08:05 Dose: 40 mg Haloperidol Lactate (Haldol) 5 mg IM ONETIME ONE Stop: 09/11/19 13:38 Last Admin: 09/11/19 14:19 Dose: Not Given Hydromorphone HCl (Dilaudid) 0.5 mg IVPUSH ONETIME ONE Stop: 09/10/19 14:21 Last Admin: 09/10/19 14:47 Dose: 0.5 mg Hydroxyzine HCl (Atarax) 25 mg PO TID PRN PRN Reason: anxiety Sodium Chloride (Normal Saline) 1,000 mls @ 999 mls/hr IV ASDIRECTED [facility] Last Admin: 09/10/19 13:20 Dose: 999 mls/hr Insulin Human Regular 100 unit (/ Sodium Chloride) 100 mls @ 10.7 mls/hr IV TITRATE FARHEEN; Protocol Insulin Human Regular 100 unit (/ Sodium Chloride) 100 mls @ 10 mls/hr IV TITRATE FARHEEN; Protocol Last Titration: 09/11/19 09:05 Dose: 0 unit/hr, 0 mls/hr Sodium Chloride (Normal Saline) 1,000 mls @ 999 mls/hr IV ASDIRECTED [facility] Last Admin: 09/10/19 15:30 Dose: 999 mls/hr Potassium Chloride 10 meq/ (Premix) 100 mls @ 100 mls/hr IV Q1H [facility] Stop: 09/10/19 18:14 Last Admin: 09/10/19 18:29 Dose: 100 mls/hr Lactated Ringer's (Ringers, Lactated) 1,000 mls @ 125 mls/hr IV ASDIRECTED [facility] Last Admin: 09/11/19 02:39 Dose: 125 mls/hr Sodium Bicarbonate 150 meq/ (Dextrose/Water) 1,150 mls @ 50 mls/hr IV ONETIME ONE Stop: 09/11/19 17:11 Last Admin: 09/10/19 18:31 Dose: 50 mls/hr Dextrose/Water (Dextrose 5% In Water) 1,000 mls @ 150 mls/hr IV ASDIRECTED [facility] Last Admin: 09/11/19 03:36 Dose: 150 mls/hr Potassium Chloride 10 meq/ (Premix) 100 mls @ 100 mls/hr IV Q1H [facility] Stop: 09/11/19 02:59 Last Admin: 09/11/19 02:37 Dose: 100 mls/hr Magnesium Sulfate 2 gm/ Premix 50 mls @ 25 mls/hr IV ONETIME ONE Stop: 09/11/19 09:05 Last Admin: 09/11/19 08:58 Dose: 25 mls/hr Lactated Ringer's (Ringers, Lactated) 1,000 mls @ 25 mls/hr IV ASDIRECTED [facility] Last Admin: 09/11/19 09:26 Dose: 25 mls/hr Insulin Glargine (Lantus) 20 unit SUBCUT DAILY [facility] Last Admin: 09/11/19 09:20 Dose: 20 units Insulin Glargine (Lantus) 25 unit SUBCUT DAILY [facility] Last Admin: 09/12/19 08:04 Dose: 25 units Non-Formulary Medication (Aripiprazole) 10 mg PO DAILY [facility] Non-Formulary Medication (Clonidine.) 0.1 mg PO BID [facility] Olanzapine (Zyprexa) 10 mg IM ONETIME ONE Stop: 09/11/19 12:01 Last Admin: 09/11/19 11:56 Dose: 10 mg Pantoprazole Sodium (Protonix Iv) 40 mg IV Q12H [facility] Last Admin: 09/11/19 20:29 Dose: Not Given Potassium Chloride (Klor-Con M20) 60 meq PO ONETIME ONE Stop: 09/10/19 22:58 Last Admin: 09/10/19 23:10 Dose: 60 meq Potassium Chloride (Klor-Con M20) 80 meq PO BID [facility] Stop: 09/13/19 09:01 Last Admin: 09/13/19 08:04 Dose: 80 meq Risperidone (Risperidal) 3 mg PO BID [facility] Last Admin: 09/12/19 08:06 Dose: 3 mg Sodium Phosphate (Neutra-Phos) 500 mg PO ONETIME ONE Stop: 09/11/19 07:07 Last Admin: 09/11/19 09:13 Dose: 500 mg Sodium Phosphate (Neutra-Phos) 250 mg PO BID [facility] Stop: 09/12/19 21:01 Last Admin: 09/12/19 20:17 Dose: 250 mg - Exam General: Reports: Alert, Cooperative, No Acute Distress, Other (Morbidly Obese) HEENT: Reports: Pupils Equal, Pupils Reactive, EOMI, Mucous Membr. Moist/[place] Neck: Reports: Supple Lungs: Reports: Normal Respiratory Effort, Decreased Breath Sounds Cardiovascular: Reports: Regular Rate, Regular Rhythm GI/Abdominal Exam: Normal Bowel Sounds, Soft, Non-Tender, No Organomegaly, No Distention, No Abnormal Bruit, Other (Obese) (Female) Exam: Deferred Rectal (Female) Exam: Deferred Back Exam: Reports: Normal Inspection, Decreased Range of Motion Extremities: Normal Inspection, Normal Range of Motion, Non-Tender, No Pedal Edema, Normal Capillary Refill Skin: Reports: Warm, Dry, Rash, Other (dermatitis/rash on abdominal folds and inguinal region as well as inner thighs) Neurological: Reports: No New Focal Deficit Psy/Mental Status: Reports: Alert, Normal Affect, Normal Mood
== END 2019-09-13 09:55 | DRG 637 ==
LOC: SUPCPDRO 11:49 → JD.ED 11:49 → JD.ICU 14:44
PROVIDERS: ADMIT Internal Medicine; ATTEND Internal Medicine
DX: E11.10 Type 2 diabetes mellitus with ketoacidosis without coma (principal); G93.41 Metabolic encephalopathy; E11.22 Type 2 diabetes mellitus with diabetic chronic kidney disease; D72.828 Other elevated white blood cell count; F23 Brief psychotic disorder; H54.7 Unspecified visual loss; E78.00 Pure hypercholesterolemia, unspecified; N17.9 Acute kidney failure, unspecified; R32 Unspecified urinary incontinence; Z68.41 Body mass index [BMI] 40.0-44.9, adult; G40.909 Epilepsy, unspecified, not intractable, without status epilepticus; B37.2 Candidiasis of skin and nail; J10.1 Influenza due to other identified influenza virus with other respiratory manifestations; F20.9 Schizophrenia, unspecified; J44.9 Chronic obstructive pulmonary disease, unspecified; E03.9 Hypothyroidism, unspecified; F41.9 Anxiety disorder, unspecified; S00.03XD Contusion of scalp, subsequent encounter; W19.XXXD Unspecified fall, subsequent encounter; R53.1 Weakness; R27.0 Ataxia, unspecified; B37.89 Other sites of candidiasis; Z88.5 Allergy status to narcotic agent; Z88.8 Allergy status to other drugs, medicaments and biological substances; F32.9 Major depressive disorder, single episode, unspecified; M79.7 Fibromyalgia; E83.39 Other disorders of phosphorus metabolism; E86.0 Dehydration; R74.0 Nonspecific elevation of levels of transaminase and lactic acid dehydrogenase [LDH]; D72.829 Elevated white blood cell count, unspecified; E88.09 Other disorders of plasma-protein metabolism, not elsewhere classified; E86.9 Volume depletion, unspecified; E66.01 Morbid (severe) obesity due to excess calories; N18.3 Chronic kidney disease, stage 3 (moderate); Z79.84 Long term (current) use of oral hypoglycemic drugs; Z79.899 Other long term (current) drug therapy; Z90.49 Acquired absence of other specified parts of digestive tract
CPT/HCPCS: 36415; 36600; 70450; 71045; 80053; 81001; 82009; 82803; 83036; 83605; 83735; 83880; 83930; 84100; 84443; 84484; 85007; 85025; 85027; 85610; 86140; 87040 ×2; 93005; 96360; 99285; J7030; 51702; 76770; 76770-26; 80048; 80076; 82570; 82947; 82962; 83935; 84156; 84300; 84540; 85652; 85999; 87486; 87581; 87632; 87798; 87804; 93010; 94640; 97116-GP; 97162-GP; 97165-GO; 97535-GO; A9270-GY; C9113; J1170; J1644; J1815-GY; J3475; J3480; J3490; J7050; J7060; J7120

== ENCOUNTER 2020-02-16 22:26 | Observation (INO) | payer MEDICARE ==
[2020-02-16] MEDS ORDERED: Ketorolac 60 MG/2 ML SDV IM ONE (23:24)
--- NOTE | 2020-02-16 23:24 | EDM.PDOCBH ---
ED HPI GENERAL MEDICAL PROBLEM - General Chief Complaint: Behavioral/Psych Stated Complaint: MENTAL HEALTH ISSUES Time Seen by Provider: 02/16/20 22:51 Source of Information: Reports: Patient, Other (Friend) History Limitations: Reports: No Limitations - History of Present Illness INITIAL COMMENTS - FREE TEXT/NARRATIVE: Mrs. Brooks is a very pleasant 64-year-old woman with a past medical history significant for schizophrenia and diabetes, who is now brought to the ED by a friend of hers, who tells me that the patient has been experiencing both visual and auditory hallucinations for the past couple of days. The patient states that she saw her uncle frying some burgers a couple of days ago, then realized that he has been for about 2 years. The patient's friend tells me that the patient's memory is very poor, the patient acknowledges that she forgets to take her medications. Based on a pill count, the patient's friend estimates that the patient has not been taking her medications for the past week or so. The patient's friend went on to say that the patient is generally unable to take care of herself, in part because of chronic right hip pain due to arthritis. The patient has had similar episodes of hallucinations about 4 times in the past , when she has forgotten to take her medications. The most recent episode in September, and she was admitted to [facility]. Previously, she was admitted to [place]. The patient's friend tells me that the patient was started on the antipsychotic cariprazine (Vraylar) 3 weeks ago. Here in the ED, the patient's initial BP is found to be mildly elevated at 148/ 91, with tachycardia of 112 bpm. Otherwise, she is afebrile, saturating 91% on room air. Other than the hallucinations, the patient denies recent fever, chills, sore throat, ear pain, nasal or sinus congestion, cough, dyspnea, chest pain, palpitations, nausea, vomiting, constipation, diarrhea, abdominal pain, urinary symptoms, recent weight gain or weight loss, recent bloody bowel movements or black bowel movements, recent joint aches, headaches, or rashes. The patient's PCP is Dr. Lexy Mc. Her Psychiatrist is Dr. Danny Anaya. Right Hip Pain Score (Numeric/FACES): 8 - Related Data Allergies Allergy/AdvReac Type Severity Reaction Status Date / Time acetaminophen Allergy Cannot Verified 02/16/20 22:44 [From Tylenol-Codeine #3] Remember codeine Allergy Cannot Verified 02/16/20 22:44 [From Tylenol-Codeine #3] Remember morphine AdvReac Headache Verified 02/16/20 22:44 Home Meds: Home Meds Cyclobenzaprine [Flexeril] 10 mg PO TID PRN 09/01/16 [History] Pregabalin [Lyrica] 300 mg PO BID 09/01/16 [History] Dulaglutide [Trulicity] 1.5 mg SQ TU 06/28/19 [History] Fluticasone/Vilanterol [Breo Ellipta 100-25 MCG Inhalation Kit] 1 each IH ASDIRECTED 09/10/19 [History] Rosuvastatin Calcium 20 mg PO BEDTIME 09/10/19 [History] ALPRAZolam [Alprazolam] 0.25 mg PO BID PRN 09/11/19 [History] FLUoxetine HCl [Fluoxetine HCl] 80 mg PO DAILY 09/11/19 [History] hydrOXYzine HCL [Hydroxyzine HCl] 25 mg PO TID PRN 09/11/19 [History] Insulin Glarg,Human.Rec.Analog [Lantus] 30 unit SUBCUT DAILY ml 09/13/19 [Rx] Insulin Lispro [HumaLOG] See Protocol SUBCUT QIDACANDBED #1 vial 09/13/19 [Rx] Nystatin [Nystop] 3 gm TOP TID bottle 09/13/19 [Rx] ARIPiprazole [Abilify] 30 mg PO DAILY 02/16/20 [History] Budesonide/Formoterol Fumarate [Symbicort 160-4.5 Mcg Inhaler] 2 inhalation PO BID 02/16/20 [History] Cariprazine HCl [Vraylar] 1.5 mg PO DAILY 02/16/20 [History] Dextroamphetamine/Amphetamine [Adderall 10 mg Tablet] 10 mg PO TID 02/16/20 [ History] Liothyronine [Cytomel] 50 mcg PO DAILY 02/16/20 [History] Modafinil [Provigil] 100 mg PO DAILY 02/16/20 [History] Oxybutynin 5 mg PO DAILY 02/16/20 [History] cloNIDine [cloNIDine HCl] 0.1 mg PO BID 02/16/20 [History] metFORMIN HCl [Metformin HCl] 1,000 mg PO BID 02/16/20 [History] Past Medical History HEENT History: Reports: Impaired Vision (wears glasses) Cardiovascular History: Reports: High Cholesterol Respiratory History: Reports: COPD (suspected, not tested) Genitourinary History: Reports: Urinary Incontinence Musculoskeletal History: Reports: Osteoarthritis Psychiatric History: Reports: Depression, PTSD, Schizophrenia, Other (See Below ) (Fibromyalgia) Endocrine/Metabolic History: Reports: Diabetes, Type II, Hypothyroidism, Obesity /BMI 30+ - Infectious Disease History Infectious Disease History: Reports: Chicken Pox, Hepatitis C (untreated), Measles, Mumps, Scarlet Fever - Past Surgical History HEENT Surgical History: Reports: Oral Surgery (wisdom teeth extraction) GI Surgical History: Reports: Appendectomy, Cholecystectomy (around 1983) Musculoskeletal Surgical History: Reports: Other (See Below) (Left ankle reconstruction) Oncologic Surgical History: Reports: Other (See Below) (Cervical biopsy - benign ) Social & Family History - Tobacco Use Smoking Status *Q: Former Smoker Years of Tobacco use: 45 Packs/Tins Daily: 3 Month/Year Tobacco Last Used: Quit 2017 - Caffeine Use Caffeine Use: Reports: Coffee, Tea - Alcohol Use Alcohol Use History: No - Recreational Drug Use Recreational Drug Use: Yes Drug Use in Last 12 Months: No Recreational Drug Type: Reports: Marijuana/Hashish (last smoked 2017) - Living Situation & Occupation Living situation: Reports: , Alone Occupation: Disabled ED ROS GENERAL - Review of Systems Review Of Systems: Comprehensive ROS is negative, except as noted in HPI. ED EXAM, BEHAVIORAL HEALTH - Physical Exam Exam: See Below Exam Limited By: No Limitations General Appearance: Alert, WD/WN, No Apparent Distress, Other (Somewhat disheveled, malodorous) Eye Exam: Bilateral Eye: EOMI, Normal Inspection Ears: Normal External Exam, Hearing Grossly Normal Nose: Normal Inspection Throat/Mouth: Normal Inspection, Normal Lips, Normal Voice, No Airway Compromise Head: Atraumatic, Normocephalic Neck: Normal Inspection, Full Range of Motion Respiratory/Chest: No Respiratory Distress, Lungs Clear, Normal Breath Sounds, No Accessory Muscle Use Cardiovascular: Normal Peripheral Pulses, Regular Rate, Rhythm, No Gallop, No JVD, No Murmur, No Rub GI/Abdominal: Normal Bowel Sounds, Soft, Non-Tender, No Organomegaly, No Distention, No Abnormal Bruit, No Mass (Female) Exam: Deferred Rectal (Female) Exam: Deferred Back Exam: Normal Inspection, Full Range of Motion, NT Extremities: Normal Inspection, Normal Range of Motion, No Pedal Edema, Normal Capillary Refill Neurological: Alert, Normal Cognition, No Motor/Sensory Deficits Psychiatric: Normal Affect, Auditory Hallucinations, Visual Hallucinations Skin Exam: Warm, Dry, Intact, Normal color, No rash COURSE, BEHAVIORAL HEALTH COMP - Course Vital Signs: Last Vital Signs Temp 35.8 C L 02/16/20 23:40 Pulse 105 H 02/16/20 23:40 Resp 18 02/16/20 23:40 BP 133/76 02/16/20 23:40 Pulse Ox 94 L 02/16/20 23:40 Orders, Labs, Meds: Active Orders 24 hr Category Date Time Status Patient Status [ADT] Routine ADT 02/17/20 00:12 Active Accu Check [Blood Glucose Check, Bedside] [RC] ONETIME Care 02/16/20 23:18 Ordered Laboratory Tests 02/16/20 Range/Units 23:24 POC Glucose 193 H (80-115) mg/dL Medications Discontinued Medications Generic Name Dose Route Start Last Admin Trade Name Freq PRN Reason Stop Dose Admin Ketorolac Tromethamine 60 mg 02/16/20 23:24 02/16/20 23:33 Toradol IM 02/16/20 23:25 60 mg ONETIME ONE Administration Medical Clearance: 02/16/20 23:15 As above, the patient has developed both visual and auditory hallucinations, almost certainly because she has not been taking her antipsychotic medications for at least a week. The patient would not likely meet criterion for psychiatric hospitalization because the only treatment necessary is for the patient to take her already prescribed psychiatric medications. Unfortunately, however, the patient has not able to take care of herself, and is forgetful and does not take her medications, therefore she would likely benefit from placement. Case discussed with Dr. Santana at 23:13. She agreed to place the patient into observation. I will order a social service technician evaluation for placement for Tuesday. 02/16/20 23:24 The patient requested something for her chronic hip pain. Given that she already has hallucinations, I do not feel comfortable in starting her on a opioid, however, the patient agreed to a shot of Toradol. Departure - Departure Time of Disposition: 23:17 Disposition: Refer to Observation Condition: Good Clinical Impression: Self-care deficit for medication management, Visual hallucinations, Auditory hallucinations - Discharge Information *PRESCRIPTION DRUG MONITORING PROGRAM REVIEWED*: Not Applicable *COPY OF PRESCRIPTION DRUG MONITORING REPORT IN PATIENT [place]: Not Applicable Referrals: Lexy Mc MD [Primary Care Provider] - Forms: ED Department Discharge Sepsis Event Note (ED) - Evaluation Sepsis Screening Result: No Definite Risk - Focused Exam Vital Signs: Vital Signs Temp Pulse Resp BP Pulse Ox 02/16/20 23:40 35.8 C L 105 H 18 133/76 94 L 02/16/20 22:37 36.1 C 112 H 18 148/91 H 91 L - My Orders Last 24 Hours: My Active Orders 02/16/20 23:18 Accu Check [Blood Glucose Check, Bedside] [RC] ONETIME 02/17/20 00:12 Patient Status [ADT] Routine - Assessment/Plan Last 24 Hours: My Active Orders 02/16/20 23:18 Accu Check [Blood Glucose Check, Bedside] [RC] ONETIME 02/17/20 00:12 Patient Status [ADT] Routine
--- NOTE | 2020-02-17 09:53 | PCM.HP.2 ---
H&P History of Present Illness - General Date of Service: 02/18/20 Admit Problem/Dx: Admission Diagnosis/Problem Admission Diagnosis/Problem Hallucinations - History of Present Illness Initial Comments - Free Text/Narative: This is a 64-year-old woman with a past medical history significant for schizophrenia and diabetes, who is now brought to the ED by a friend of hers, who tells me that the patient has been experiencing both visual and auditory hallucinations for the past couple of days. The patient states that she saw her uncle frying some burgers a couple of days ago, then realized that he has been for about 2 years. As per friend the patient's memory is very poor, the patient acknowledges that she forgets to take her medications. Based on a pill count, the patient's friend estimates that the patient has not been taking her medications for the past week or so. The patient's friend went on to say that the patient is generally unable to take care of herself, in part because of chronic right hip pain due to arthritis. The patient has had similar episodes of hallucinations about 4 times in the past , when she has forgotten to take her medications. The most recent episode in September, and she was admitted to [facility]. Previously, she was admitted to [facility]. Of note, she was started on the antipsychotic cariprazine (Vraylar) 3 weeks ago. Right Hip Pain Score (Numeric/FACES): 8 - Related Data Allergies/Adverse Reactions: Allergies Allergy/AdvReac Type Severity Reaction Status Date / Time acetaminophen Allergy Cannot Verified 02/17/20 02:56 [From Tylenol-Codeine #3] Remember codeine Allergy Cannot Verified 02/17/20 02:56 [From Tylenol-Codeine #3] Remember morphine AdvReac Headache Verified 02/17/20 02:56 Home Medications: Home Meds Cyclobenzaprine [Flexeril] 10 mg PO TID PRN 09/01/16 [History] Pregabalin [Lyrica] 300 mg PO BID 09/01/16 [History] Dulaglutide [Trulicity] 1.5 mg SQ TU 06/28/19 [History] Fluticasone/Vilanterol [Breo Ellipta 100-25 MCG Inhalation Kit] 1 each IH ASDIRECTED 09/10/19 [History] Rosuvastatin Calcium 20 mg PO BEDTIME 09/10/19 [History] ALPRAZolam [Alprazolam] 0.25 mg PO BID PRN 09/11/19 [History] FLUoxetine HCl [Fluoxetine HCl] 80 mg PO DAILY 09/11/19 [History] Insulin Glarg,Human.Rec.Analog [Lantus] 30 unit SUBCUT DAILY ml 09/13/19 [Rx] Insulin Lispro [HumaLOG] See Protocol SUBCUT QIDACANDBED #1 vial 09/13/19 [Rx] Nystatin [Nystop] 3 gm TOP TID bottle 09/13/19 [Rx] ARIPiprazole [Abilify] 30 mg PO DAILY 02/16/20 [History] Budesonide/Formoterol Fumarate [Symbicort 160-4.5 Mcg Inhaler] 2 inhalation PO BID 02/16/20 [History] Cariprazine HCl [Vraylar] 1.5 mg PO DAILY 02/16/20 [History] Dextroamphetamine/Amphetamine [Adderall 10 mg Tablet] 10 mg PO TID 02/16/20 [ History] Liothyronine [Cytomel] 50 mcg PO DAILY 02/16/20 [History] Modafinil [Provigil] 100 mg PO DAILY 02/16/20 [History] Oxybutynin 5 mg PO DAILY 02/16/20 [History] cloNIDine [cloNIDine HCl] 0.1 mg PO BID 02/16/20 [History] metFORMIN HCl [Metformin HCl] 1,000 mg PO BID 02/16/20 [History] Biotin 5,000 mcg PO DAILY 02/17/20 [History] Ibuprofen [Ibu-200] 1 cap PO Q4HR PRN 02/17/20 [History] hydrOXYzine pamoate [Vistaril] 25 mg PO TID PRN 02/17/20 [History] Past Medical History HEENT History: Reports: Impaired Vision Other HEENT History: wears eyeglasses, has no teeth, frequent abscesses to "nubs " of teeth that are still in place. Cardiovascular History: Reports: High Cholesterol Respiratory History: Reports: COPD Genitourinary History: Reports: Urinary Incontinence [employer] History: Reports: Musculoskeletal History: Reports: Osteoarthritis Other Musculoskeletal History: chroic right hip pain Neurological History: Reports: Seizure Psychiatric History: Reports: Depression, PTSD, Schizophrenia Endocrine/Metabolic History: Reports: Diabetes, Type II, Hypothyroidism, Obesity /BMI 30+ - Infectious Disease History Infectious Disease History: Reports: Chicken Pox, Hepatitis C, Measles, Mumps, Scarlet Fever - Past Surgical History HEENT Surgical History: Reports: Oral Surgery Cardiovascular Surgical History: Reports: None GI Surgical History: Reports: Appendectomy, Cholecystectomy Female Surgical History: Reports: None Endocrine Surgical History: Reports: None Neurological Surgical History: Reports: None Musculoskeletal Surgical History: Reports: Other (See Below) Oncologic Surgical History: Reports: Other (See Below) Social & Family History - Family History Family Medical History: Noncontributory - Tobacco Use Smoking Status *Q: Former Smoker Years of Tobacco use: 25 Packs/Tins Daily: 3 Used Tobacco, but Quit: No Month/Year Tobacco Last Used: Quit 2017 Second Hand Smoke Exposure: No - Caffeine Use Caffeine Use: Reports: Coffee, Tea Other Caffeine Use: several cups of coffee everyday and an occassional black tea too - Recreational Drug Use Recreational Drug Use: No Drug Use in Last 12 Months: No Recreational Drug Type: Reports: Marijuana/Hashish (last smoked 2017) - Living Situation & Occupation Living situation: Reports: , Alone Occupation: Disabled H&P Review of Systems - Review of Systems: Review Of Systems: Unable To Obtain Reason Not Obtained: Due to altered mental status Exam - Exam Exam: See Below - Vital Signs Vital Signs: Last Vital Signs Temp 97.5 F 02/17/20 08:01 Pulse 97 02/17/20 08:01 Resp 20 02/17/20 08:01 BP 132/67 02/17/20 08:01 Pulse Ox 91 L 02/17/20 08:01 Weight: 114.169 kg - Exam General: Alert, Cooperative. No: Oriented HEENT: Conjunctiva Clear, EACs Clear, Mucosa Moist & [place] Neck: Supple Lungs: Clear to Auscultation, Normal Respiratory Effort. No: Crackles, Rales, Rhonchi, Rub, Stridor, Wheezing Cardiovascular: Regular Rate, Regular Rhythm. No: Systolic Murmur, Diastolic Murmur, Rubs, Gallop/S3, Gallop/S4 GI/Abdominal Exam: Normal Bowel Sounds, Soft, Non-Tender, Distended. No: Guarding Extremities: Normal Inspection, Pedal Edema (trace) - Patient Data Result Diagrams: 02/18/20 04:38 02/18/20 04:45 Sepsis Event Note - Evaluation Sepsis Screening Result: No Definite Risk - Problem List (1) Diabetes mellitus SNOMED Code(s): 76401791 ICD Code: E11.9 - TYPE 2 DIABETES MELLITUS WITHOUT COMPLICATIONS Status: Acute Current Visit: Yes (2) Acute psychosis SNOMED Code(s): 50527842, 09567815 ICD Code: F23 - BRIEF PSYCHOTIC DISORDER Status: Acute Current Visit: Yes (3) Dyslipidemia SNOMED Code(s): 900948089 ICD Code: E78.5 - HYPERLIPIDEMIA, UNSPECIFIED Status: Acute Current Visit : Yes (4) PTSD (post-traumatic stress disorder) SNOMED Code(s): 43225985 ICD Code: F43.10 - POST-TRAUMATIC STRESS DISORDER, UNSPECIFIED Status: Acute Current Visit: Yes (5) Depression SNOMED Code(s): 23401446 ICD Code: F32.9 - MAJOR DEPRESSIVE DISORDER, SINGLE EPISODE, UNSPECIFIED Status: Acute Current Visit: Yes (6) Hypothyroidism SNOMED Code(s): 99911730 ICD Code: E03.9 - HYPOTHYROIDISM, UNSPECIFIED Status: Acute Current Visit : Yes (7) Insufficient social support SNOMED Code(s): 874526662 ICD Code: Z65.8 - OTH PROBLEMS RELATED TO PSYCHOSOCIAL CIRCUMSTANCES Status : Acute Current Visit: Yes (8) Schizophrenia SNOMED Code(s): 53452132 ICD Code: F20.9 - SCHIZOPHRENIA, UNSPECIFIED Status: Acute Current Visit : No Qualifiers: Schizophrenia type: other Qualified Code(s): F20.89 - Other schizophrenia; F20.8 - Other schizophrenia Problem List Initiated/Reviewed/Updated: Yes Assessment/Plan Comment:: ASSESSMENT - Brought in by friend for acute psychotic episode (visual and auditory hallucinations) - Likely microvascular disease as well as schizophrenia - 4 prior episodes - Recently started on antipsychotic within the past month - It's unknown when she last took her medications - She is unable to take care of herself for multiple reasons including arthritic pain of hip Acute psychosis Schizophrenia Depression PTSD (post-traumatic stress disorder) Insufficient social support - Psychiatry consult - PT/OT - Let me sleep protocol - PRN Haldol - Avoid central acting medications as much as possible Diabetes mellitus, unknown HbA1c - Scheduled glucose checks - Restart home long acting insulin - Hypoglycemia protocol PROPHYLAXIS DVT- compression stockings GI- not indicated CODE STATUS: FULL CODE DISPOSITION: Patient will be admitted to medical floor for PT/OT evaluation as well as psychiatry to set up fpc placement. - Mortality Measure Prognosis:: Poor
[2020-02-17] MEDS ORDERED: Ondansetron 4 MG Tab.DIS PO PRN (12:04)
[2020-02-17] MEDS ORDERED: 50% Dextrose in Water 50 ML Syringe IVPUSH PRN (12:04)
[2020-02-17] MEDS ORDERED: Ondansetron 4 MG/2 ML SDV IV PRN (12:04)
[2020-02-17] MEDS ORDERED: Acetaminophen 325 MG Tab PO PRN (12:04)
[2020-02-17] MEDS ORDERED: ARIPIPRAZOLE 30 MG PO SCH ×2 (12:15→15:30)
[2020-02-17 12:58] LABS: HEMOGLOBIN A1C 8.2 % (4.50-6.20)
[2020-02-17] MEDS ORDERED: Nystatin Topical Powder 15 GM Bottle TOP SCH (15:00)
[2020-02-17] MEDS ORDERED: Magnesium Sulfate/Water 4 GM in Premix Bag 1 BAG IV ONE (15:05)
[2020-02-17] MEDS ORDERED: Magnesium Oxide 400 MG Tab PO ONE (16:23)
[2020-02-17] MEDS: AMPHETAMINE PO SCH ×2 (16:44→20:22)
[2020-02-17] MEDS: DEXTROAMPHETAMINE PO SCH ×2 (16:44→20:22)
[2020-02-17] MEDS ORDERED: Ketorolac 10 MG Tab PO PRN (16:54)
[2020-02-17] MEDS ORDERED: Insulin Glarg,Human.Rec.Analog 100 Unit/ML SUBCUT ONE (17:00)
[2020-02-17] MEDS: BUDESONIDE PO SCH (20:39)
[2020-02-17] MEDS: FORMOTEROL PO SCH (20:39)
[2020-02-17] MEDS ORDERED: ROSUVASTATIN 20 MG PO SCH (21:00)
[2020-02-18] MEDS ORDERED: Haloperidol Lactate 5 MG/ML SDV IM PRN (04:30)
[2020-02-18] MEDS ORDERED: MODAFINIL 100 MG PO SCH (09:00)
[2020-02-18] MEDS ORDERED: CARIPRAZINE HCL 1.5 MG PO SCH (09:00)
[2020-02-18] MEDS ORDERED: Insulin Glarg,Human.Rec.Analog 100 Unit/ML SUBCUT SCH (09:00)
[2020-02-18] MEDS ORDERED: FLUOXETINE 40 MG PO SCH (09:00)
[2020-02-18] MEDS ORDERED: Oxybutynin 5 MG Tab PO SCH (09:00)
[2020-02-18] MEDS: BUDESONIDE PO SCH (09:20)
[2020-02-18] MEDS: FORMOTEROL PO SCH (09:20)
[2020-02-18] MEDS ORDERED: Insulin Lispro 100 Units/ML 3 ML Vial SUBCUT SCH (11:00)
[2020-02-18] MEDS: DEXTROAMPHETAMINE PO SCH (11:03)
[2020-02-18] MEDS: AMPHETAMINE PO SCH (11:03)
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
[2020-02-18] MEDS ORDERED: ALPRAZOLAM 0.25 MG PO PRN (11:32)
[2020-02-18] MEDS ORDERED: Ferrous Sulfate 324 MG Tab.EC PO SCH (12:00)
[2020-02-18] MEDS ORDERED: Magnesium Oxide 400 MG Tab PO SCH (12:00)
[2020-02-18] MEDS ORDERED: ALPRAZolam 0.25 MG Tab PO PRN (12:28)
[2020-02-18 14:26] VITALS: BP 130/64; PULSE 105
[2020-02-18] MEDS ORDERED: Insulin Glarg,Human.Rec.Analog 100 Unit/ML SUBCUT ONE (17:00)
[2020-02-18] MEDS ORDERED: VILANTEROL INH SCH (21:00)
[2020-02-18] MEDS ORDERED: FLUTICASONE INH SCH (21:00)
== END 2020-02-18 14:00 ==
LOC: JD.ED 22:26 → JD.MS 02-17 00:12
PROVIDERS: ADMIT Internal Medicine; ATTEND Internal Medicine
DX: F20.89 Other schizophrenia (principal); F32.89 Other specified depressive episodes; E78.00 Pure hypercholesterolemia, unspecified; J44.9 Chronic obstructive pulmonary disease, unspecified; E11.9 Type 2 diabetes mellitus without complications; E03.9 Hypothyroidism, unspecified; E66.9 Obesity, unspecified; E78.5 Hyperlipidemia, unspecified; F43.10 Post-traumatic stress disorder, unspecified; Z65.8 Other specified problems related to psychosocial circumstances; Z79.899 Other long term (current) drug therapy; Z79.4 Long term (current) use of insulin; Z79.890 Hormone replacement therapy; Z87.891 Personal history of nicotine dependence; Z88.5 Allergy status to narcotic agent; Z68.41 Body mass index [BMI] 40.0-44.9, adult
CPT/HCPCS: 36415; 80053; 82306; 82607; 82746; 82962; 83036; 83540; 83735; 84100; 84443; 84466; 85025; 94640; 94760; 94761; 96372; 97116; 97161; 97165; 97530; 99285; A9270; J1630; J1815; J1885; G0378

== ENCOUNTER 2021-10-14 21:27 | Emergency (ER) | payer MEDICARE ==
[2021-10-14 21:47] VITALS: BP 129/69; PULSE 98
== END 2021-10-15 06:19 | disposition home or self-care (01) ==
LOC: JD.ED 21:27
DX: M16.11 Unilateral primary osteoarthritis, right hip (principal); E78.00 Pure hypercholesterolemia, unspecified; E11.9 Type 2 diabetes mellitus without complications; E03.9 Hypothyroidism, unspecified; J44.9 Chronic obstructive pulmonary disease, unspecified; E66.9 Obesity, unspecified; Z68.35 Body mass index [BMI] 35.0-35.9, adult; Z88.5 Allergy status to narcotic agent; Z88.8 Allergy status to other drugs, medicaments and biological substances; Z79.4 Long term (current) use of insulin; Z79.899 Other long term (current) drug therapy; Z72.0 Tobacco use
CPT/HCPCS: 36415; 73502-26-RT; 73502-RT; 73562-26-RT; 73562-RT; 80053; 82803; 85025; 99283

== ENCOUNTER 2021-11-01 09:34 | Emergency (ER) | payer MEDICARE ==
[2021-11-01] MEDS: Acetaminophen 325 MG Tab PO ONE (10:56)
[2021-11-01 11:34] VITALS: BP 144/73; PULSE 103
[2021-11-01] MEDS: Cefdinir 300 MG Cap PO ONE (12:15)
== END 2021-11-01 12:41 | disposition home or self-care (01) ==
LOC: JD.ED 09:34
DX: N39.0 Urinary tract infection, site not specified (principal); M25.551 Pain in right hip; J44.9 Chronic obstructive pulmonary disease, unspecified; E78.00 Pure hypercholesterolemia, unspecified; E11.9 Type 2 diabetes mellitus without complications; E03.9 Hypothyroidism, unspecified; M19.90 Unspecified osteoarthritis, unspecified site; E66.9 Obesity, unspecified; Z68.41 Body mass index [BMI] 40.0-44.9, adult; Z88.5 Allergy status to narcotic agent; Z88.8 Allergy status to other drugs, medicaments and biological substances; Z79.4 Long term (current) use of insulin
CPT/HCPCS: 36415; 72192; 72192-26; 73502-26-RT; 73502-RT; 73700-26-RT; 73700-RT; 80053; 81001; 85025; 87086; 87088; 87186; 99284-25; A9270-GY

== ENCOUNTER 2022-01-14 11:47 | Inpatient (IN) | payer MEDICARE ==
[2022-01-14] MEDS: Sodium Chloride 0.9% 10 ML Syringe FLUSH PRN (12:11)
[2022-01-14 12:39] LABS: ACETAMINOPHEN 0 ug/mL (10-30); ESTIMATED GFR > 60 mL/min (>60)
[2022-01-14] MEDS ORDERED: Magnesium Sulfate/Water 4 GM in Premix Bag 1 BAG IV ONE (13:08)
[2022-01-14 13:25] LABS: HEMOGLOBIN A1C 7.3 %
[2022-01-14] MEDS: Potassium Chloride 10 MEQ in Premix Bag 1 BAG IV SCH ×4 (13:34→17:43)
[2022-01-14] MEDS: Sodium Chloride 0.9% 1,000 ML IV SCH ×2 (13:35→21:26)
[2022-01-14] MEDS ORDERED: cefTRIAXone 1 GM in Sodium Chloride 0.9% 100 ML IV ONE (14:10)
[2022-01-14] MEDS ORDERED: Ondansetron 4 MG/2 ML SDV IV PRN (16:00)
[2022-01-14] MEDS: Heparin Sodium 5,000 Units/ML Vial SUBCUT SCH (18:31)
[2022-01-14] MEDS: Insulin Lispro 100 Unit/ML 3 ML KwikPen SUBCUT SCH ×2 (18:34→20:39)
[2022-01-14] MEDS: Pramipexole 0.25 MG Tab PO SCH (20:29)
[2022-01-14] MEDS: risperiDONE 1 MG Tab PO SCH (20:29)
[2022-01-14] MEDS ORDERED: Insulin Glargine,Human Rec. Analog 100 Units/ML 3 ML Pen SUBCUT SCH (21:00)
[2022-01-15] MEDS: Heparin Sodium 5,000 Units/ML Vial SUBCUT SCH ×3 (00:14→17:06)
[2022-01-15] MEDS: Sodium Chloride 0.9% 1,000 ML IV SCH ×3 (05:30→21:42)
[2022-01-15 06:21] LABS: ESTIMATED GFR > 60 mL/min (>60)
[2022-01-15] MEDS: Insulin Lispro 100 Unit/ML 3 ML KwikPen SUBCUT SCH ×4 (07:46→20:47)
[2022-01-15] MEDS: FLUoxetine 20 MG Cap PO SCH (07:59)
[2022-01-15] MEDS: buPROPion 150 MG Tab.ER PO SCH (08:00)
[2022-01-15] MEDS: Oxybutynin 5 MG Tab.ER PO SCH (08:00)
[2022-01-15] MEDS ORDERED: Potassium Chloride 10 MEQ Tab.ER PO SCH (09:00)
[2022-01-15] MEDS: Potassium Chloride 20 MEQ Tab.ER PO SCH ×2 (09:27→09:29)
[2022-01-15] MEDS ORDERED: Acetaminophen 325 MG Tab PO PRN (11:37)
[2022-01-15] MEDS: oxyCODONE 5 MG Tab PO PRN ×2 (12:28→20:40)
[2022-01-15] MEDS: cefTRIAXone 1 GM in Sodium Chloride 0.9% 100 ML IV SCH (13:13)
[2022-01-15] MEDS: risperiDONE 1 MG Tab PO SCH (20:39)
[2022-01-15] MEDS: Pramipexole 0.25 MG Tab PO SCH (20:39)
[2022-01-15] MEDS ORDERED: Insulin Glargine,Human Rec. Analog 100 Units/ML 3 ML Pen SUBCUT SCH ×2 (21:00)
[2022-01-16] MEDS: Heparin Sodium 5,000 Units/ML Vial SUBCUT SCH ×3 (00:18→15:01)
[2022-01-16] MEDS: Sodium Chloride 0.9% 1,000 ML IV SCH (05:44)
[2022-01-16] MEDS: buPROPion 150 MG Tab.ER PO SCH (07:40)
[2022-01-16] MEDS: Insulin Lispro 100 Unit/ML 3 ML KwikPen SUBCUT SCH ×4 (07:40→20:32)
[2022-01-16] MEDS: FLUoxetine 20 MG Cap PO SCH (07:41)
[2022-01-16] MEDS: Oxybutynin 5 MG Tab.ER PO SCH (08:03)
[2022-01-16] MEDS: Potassium Chloride 20 MEQ Tab.ER PO SCH (08:04)
[2022-01-16 08:06] LABS: ESTIMATED GFR > 60 mL/min (>60)
[2022-01-16] MEDS ORDERED: Furosemide 20 MG Tab PO ONE (08:22)
[2022-01-16] MEDS ORDERED: Magnesium Oxide 400 MG Tab PO ONE (09:57)
[2022-01-16] MEDS: cefTRIAXone 1 GM in Sodium Chloride 0.9% 100 ML IV SCH (13:02)
[2022-01-16] MEDS: Pramipexole 0.25 MG Tab PO SCH (20:27)
[2022-01-16] MEDS: Haloperidol 5 MG Tab PO SCH (20:27)
[2022-01-16] MEDS: Benztropine 1 MG Tab PO SCH (20:28)
[2022-01-16] MEDS: Insulin Glargine,Human Rec. Analog 100 Units/ML 3 ML Pen SUBCUT SCH (20:37)
[2022-01-17] MEDS: Heparin Sodium 5,000 Units/ML Vial SUBCUT SCH ×4 (00:45→23:48)
[2022-01-17] MEDS: oxyCODONE 5 MG Tab PO PRN ×3 (00:45→23:47)
[2022-01-17 06:43] LABS: ESTIMATED GFR > 60 mL/min (>60)
[2022-01-17] MEDS: buPROPion 150 MG Tab.ER PO SCH (08:11)
[2022-01-17] MEDS: Potassium Chloride 20 MEQ Tab.ER PO SCH (08:11)
[2022-01-17] MEDS: Insulin Lispro 100 Unit/ML 3 ML KwikPen SUBCUT SCH ×4 (08:11→20:23)
[2022-01-17] MEDS: Oxybutynin 5 MG Tab.ER PO SCH (08:11)
[2022-01-17] MEDS ORDERED: FLUoxetine 10 MG Cap PO SCH (09:00)
[2022-01-17] MEDS ORDERED: cefTRIAXone 1 GM in Sodium Chloride 0.9% 100 ML IV SCH (14:00)
[2022-01-17] MEDS: Pramipexole 0.25 MG Tab PO SCH (20:20)
[2022-01-17] MEDS: Benztropine 1 MG Tab PO SCH (20:20)
[2022-01-17] MEDS: Haloperidol 5 MG Tab PO SCH (20:20)
[2022-01-17] MEDS: Insulin Glargine,Human Rec. Analog 100 Units/ML 3 ML Pen SUBCUT SCH (20:25)
[2022-01-17] MEDS: Sodium Chloride 0.9% 10 ML Syringe FLUSH PRN (20:29)
[2022-01-18] MEDS: Insulin Lispro 100 Unit/ML 3 ML KwikPen SUBCUT SCH ×4 (06:30→21:16)
[2022-01-18 06:56] LABS: ESTIMATED GFR > 60 mL/min (>60)
[2022-01-18] MEDS: FLUoxetine 20 MG Cap PO SCH (08:43)
[2022-01-18] MEDS: Potassium Chloride 20 MEQ Tab.ER PO SCH (08:43)
[2022-01-18] MEDS: Oxybutynin 5 MG Tab.ER PO SCH (08:43)
[2022-01-18] MEDS: buPROPion 150 MG Tab.ER PO SCH (08:43)
[2022-01-18] MEDS: Sulfamethoxazole/Trimethoprim 800-160 MG Tab PO SCH ×2 (08:43→21:14)
[2022-01-18] MEDS: Heparin Sodium 5,000 Units/ML Vial SUBCUT SCH ×3 (08:44→23:47)
[2022-01-18] MEDS ORDERED: Magnesium Sulfate/Water 2 GM in Premix Bag 1 BAG IV ONE (09:43)
[2022-01-18] MEDS: oxyCODONE 5 MG Tab PO PRN ×2 (16:01→23:49)
[2022-01-18] MEDS: Magnesium Oxide 400 MG Tab PO SCH (21:13)
[2022-01-18] MEDS: Benztropine 1 MG Tab PO SCH (21:13)
[2022-01-18] MEDS: Pramipexole 0.25 MG Tab PO SCH (21:14)
[2022-01-18] MEDS: Insulin Glargine,Human Rec. Analog 100 Units/ML 3 ML Pen SUBCUT SCH (21:15)
[2022-01-18] MEDS: Haloperidol 5 MG Tab PO SCH (21:15)
[2022-01-19 06:11] LABS: ESTIMATED GFR > 60 mL/min (>60)
[2022-01-19] MEDS ORDERED: Magnesium Sulfate/Water 4 GM in Premix Bag 1 BAG IV ONE (07:30)
[2022-01-19] MEDS: Insulin Lispro 100 Unit/ML 3 ML KwikPen SUBCUT SCH ×5 (07:35→20:53)
[2022-01-19] MEDS: buPROPion 150 MG Tab.ER PO SCH (08:24)
[2022-01-19] MEDS: Oxybutynin 5 MG Tab.ER PO SCH (08:24)
[2022-01-19] MEDS: Potassium Chloride 20 MEQ Tab.ER PO SCH (08:24)
[2022-01-19] MEDS: Magnesium Oxide 400 MG Tab PO SCH ×2 (08:24→20:52)
[2022-01-19] MEDS: FLUoxetine 20 MG Cap PO SCH (08:25)
[2022-01-19] MEDS: Sulfamethoxazole/Trimethoprim 800-160 MG Tab PO SCH (08:25)
[2022-01-19] MEDS: Heparin Sodium 5,000 Units/ML Vial SUBCUT SCH ×2 (08:25→17:18)
[2022-01-19] MEDS: oxyCODONE 5 MG Tab PO PRN ×2 (12:37→19:10)
[2022-01-19] MEDS: Pramipexole 0.25 MG Tab PO SCH (20:52)
[2022-01-19] MEDS: Haloperidol 5 MG Tab PO SCH (20:53)
[2022-01-19] MEDS: Benztropine 1 MG Tab PO SCH (20:53)
[2022-01-19] MEDS: Insulin Glargine,Human Rec. Analog 100 Units/ML 3 ML Pen SUBCUT SCH (20:56)
[2022-01-20] MEDS: Heparin Sodium 5,000 Units/ML Vial SUBCUT SCH ×3 (00:12→16:08)
[2022-01-20] MEDS: oxyCODONE 5 MG Tab PO PRN ×2 (08:25→15:24)
[2022-01-20] MEDS: Oxybutynin 5 MG Tab.ER PO SCH (08:26)
[2022-01-20] MEDS: Potassium Chloride 20 MEQ Tab.ER PO SCH (08:27)
[2022-01-20] MEDS: FLUoxetine 20 MG Cap PO SCH (08:27)
[2022-01-20] MEDS: buPROPion 150 MG Tab.ER PO SCH (08:27)
[2022-01-20] MEDS: Magnesium Oxide 400 MG Tab PO SCH ×2 (08:27→21:39)
[2022-01-20] MEDS: Insulin Lispro 100 Unit/ML 3 ML KwikPen SUBCUT SCH ×4 (08:29→21:43)
[2022-01-20] MEDS: Phenazopyridine 95 MG Tab PO SCH ×3 (10:06→21:39)
[2022-01-20] MEDS: Ciprofloxacin 0.3% Ophth Soln 5 ML Bottle EARBOTH SCH (16:07)
[2022-01-20] MEDS: Sodium Chloride 0.9% 10 ML Syringe FLUSH PRN (16:09)
[2022-01-20] MEDS: Insulin Glargine,Human Rec. Analog 100 Units/ML 3 ML Pen SUBCUT SCH (21:36)
[2022-01-20] MEDS: Pramipexole 0.25 MG Tab PO SCH (21:39)
[2022-01-20] MEDS: Benztropine 1 MG Tab PO SCH (21:39)
[2022-01-20] MEDS: Haloperidol 5 MG Tab PO SCH (21:40)
[2022-01-21] MEDS: Heparin Sodium 5,000 Units/ML Vial SUBCUT SCH ×3 (00:10→15:24)
[2022-01-21] MEDS: oxyCODONE 5 MG Tab PO PRN ×3 (00:13→21:23)
[2022-01-21] MEDS: Insulin Lispro 100 Unit/ML 3 ML KwikPen SUBCUT SCH ×4 (07:45→21:03)
[2022-01-21] MEDS: FLUoxetine 20 MG Cap PO SCH (08:00)
[2022-01-21] MEDS: Phenazopyridine 95 MG Tab PO SCH ×3 (08:00→21:02)
[2022-01-21] MEDS: Magnesium Oxide 400 MG Tab PO SCH ×2 (08:00→21:02)
[2022-01-21] MEDS: Oxybutynin 5 MG Tab.ER PO SCH (08:00)
[2022-01-21] MEDS: buPROPion 150 MG Tab.ER PO SCH (08:01)
[2022-01-21] MEDS: Potassium Chloride 20 MEQ Tab.ER PO SCH (08:01)
[2022-01-21] MEDS: Ciprofloxacin 0.3% Ophth Soln 5 ML Bottle EARBOTH SCH (15:23)
[2022-01-21] MEDS: Benztropine 1 MG Tab PO SCH (21:02)
[2022-01-21] MEDS: Haloperidol 5 MG Tab PO SCH (21:02)
[2022-01-21] MEDS: Pramipexole 0.25 MG Tab PO SCH (21:03)
[2022-01-21] MEDS: Insulin Glargine,Human Rec. Analog 100 Units/ML 3 ML Pen SUBCUT SCH (21:04)
[2022-01-22] MEDS: Heparin Sodium 5,000 Units/ML Vial SUBCUT SCH ×3 (00:02→16:45)
[2022-01-22] MEDS ORDERED: Loperamide 2 MG Cap PO ONE (00:48)
[2022-01-22] MEDS: Insulin Lispro 100 Unit/ML 3 ML KwikPen SUBCUT SCH ×4 (06:50→21:14)
[2022-01-22] MEDS: Phenazopyridine 95 MG Tab PO SCH ×3 (09:13→20:36)
[2022-01-22] MEDS: Potassium Chloride 20 MEQ Tab.ER PO SCH (09:13)
[2022-01-22] MEDS: Magnesium Oxide 400 MG Tab PO SCH ×2 (09:13→20:36)
[2022-01-22] MEDS: buPROPion 150 MG Tab.ER PO SCH (09:14)
[2022-01-22] MEDS: oxyCODONE 5 MG Tab PO PRN ×2 (09:14→20:36)
[2022-01-22] MEDS: Oxybutynin 5 MG Tab.ER PO SCH (09:15)
[2022-01-22] MEDS: FLUoxetine 20 MG Cap PO SCH (09:15)
[2022-01-22] MEDS: Haloperidol 5 MG Tab PO SCH ×2 (10:56→20:35)
[2022-01-22] MEDS: Ciprofloxacin 0.3% Ophth Soln 5 ML Bottle EARBOTH SCH (16:56)
[2022-01-22] MEDS: Benztropine 1 MG Tab PO SCH (20:34)
[2022-01-22] MEDS: Pramipexole 0.25 MG Tab PO SCH (20:35)
[2022-01-22] MEDS: Insulin Glargine,Human Rec. Analog 100 Units/ML 3 ML Pen SUBCUT SCH (21:14)
[2022-01-23] MEDS: Heparin Sodium 5,000 Units/ML Vial SUBCUT SCH ×3 (01:18→15:03)
[2022-01-23 06:42] LABS: ESTIMATED GFR > 60 mL/min (>60)
[2022-01-23] MEDS: Insulin Lispro 100 Unit/ML 3 ML KwikPen SUBCUT SCH ×4 (07:08→20:44)
[2022-01-23] MEDS: FLUoxetine 20 MG Cap PO SCH (08:41)
[2022-01-23] MEDS: buPROPion 150 MG Tab.ER PO SCH (08:42)
[2022-01-23] MEDS: Potassium Chloride 20 MEQ Tab.ER PO SCH (08:42)
[2022-01-23] MEDS: Magnesium Oxide 400 MG Tab PO SCH ×2 (08:42→20:46)
[2022-01-23] MEDS: Oxybutynin 5 MG Tab.ER PO SCH (08:42)
[2022-01-23] MEDS: Phenazopyridine 95 MG Tab PO SCH ×3 (08:42→20:48)
[2022-01-23] MEDS: Haloperidol 5 MG Tab PO SCH ×2 (08:42→20:48)
[2022-01-23] MEDS: Ciprofloxacin 0.3% Ophth Soln 5 ML Bottle EARBOTH SCH (15:03)
[2022-01-23] MEDS: Insulin Glargine,Human Rec. Analog 100 Units/ML 3 ML Pen SUBCUT SCH (20:45)
[2022-01-23] MEDS: oxyCODONE 5 MG Tab PO PRN (20:46)
[2022-01-23] MEDS: Benztropine 1 MG Tab PO SCH (20:47)
[2022-01-23] MEDS: Pramipexole 0.25 MG Tab PO SCH (20:48)
[2022-01-24] MEDS: Heparin Sodium 5,000 Units/ML Vial SUBCUT SCH ×3 (00:45→16:02)
[2022-01-24 08:28] LABS: ESTIMATED GFR > 60 mL/min (>60)
[2022-01-24] MEDS: Insulin Lispro 100 Unit/ML 3 ML KwikPen SUBCUT SCH ×4 (08:31→21:36)
[2022-01-24] MEDS: FLUoxetine 20 MG Cap PO SCH (08:32)
[2022-01-24] MEDS: Potassium Chloride 20 MEQ Tab.ER PO SCH (08:32)
[2022-01-24] MEDS: Haloperidol 5 MG Tab PO SCH ×2 (08:32→21:35)
[2022-01-24] MEDS: Oxybutynin 5 MG Tab.ER PO SCH (08:33)
[2022-01-24] MEDS: buPROPion 150 MG Tab.ER PO SCH (08:33)
[2022-01-24] MEDS: Magnesium Oxide 400 MG Tab PO SCH ×2 (08:33→21:35)
[2022-01-24] MEDS: Phenazopyridine 95 MG Tab PO SCH ×3 (08:33→21:35)
[2022-01-24] MEDS: Ciprofloxacin 0.3% Ophth Soln 5 ML Bottle EARBOTH SCH (16:03)
[2022-01-24] MEDS: Benztropine 1 MG Tab PO SCH (21:34)
[2022-01-24] MEDS: Pramipexole 0.25 MG Tab PO SCH (21:35)
[2022-01-24] MEDS: Insulin Glargine,Human Rec. Analog 100 Units/ML 3 ML Pen SUBCUT SCH (21:38)
[2022-01-25] MEDS: Heparin Sodium 5,000 Units/ML Vial SUBCUT SCH ×3 (00:54→16:30)
[2022-01-25] MEDS: Insulin Lispro 100 Unit/ML 3 ML KwikPen SUBCUT SCH ×4 (06:51→21:26)
[2022-01-25 07:20] LABS: ESTIMATED GFR > 60 mL/min (>60)
[2022-01-25] MEDS: Oxybutynin 5 MG Tab.ER PO SCH (09:23)
[2022-01-25] MEDS: Potassium Chloride 20 MEQ Tab.ER PO SCH (09:23)
[2022-01-25] MEDS: Phenazopyridine 95 MG Tab PO SCH (09:23)
[2022-01-25] MEDS: Magnesium Oxide 400 MG Tab PO SCH ×3 (09:23→21:27)
[2022-01-25] MEDS: buPROPion 150 MG Tab.ER PO SCH (09:23)
[2022-01-25] MEDS: FLUoxetine 20 MG Cap PO SCH (09:23)
[2022-01-25] MEDS: Haloperidol 5 MG Tab PO SCH ×3 (09:24→21:26)
[2022-01-25] MEDS: oxyCODONE 5 MG Tab PO PRN (16:30)
[2022-01-25] MEDS: Ciprofloxacin 0.3% Ophth Soln 5 ML Bottle EARBOTH SCH (16:31)
[2022-01-25] MEDS: Benztropine 1 MG Tab PO SCH ×2 (19:50→21:26)
[2022-01-25] MEDS: Pramipexole 0.25 MG Tab PO SCH ×2 (19:50→21:27)
[2022-01-25] MEDS: Insulin Glargine,Human Rec. Analog 100 Units/ML 3 ML Pen SUBCUT SCH (19:59)
[2022-01-26] MEDS: Heparin Sodium 5,000 Units/ML Vial SUBCUT SCH ×3 (00:35→15:42)
[2022-01-26] MEDS: Insulin Lispro 100 Unit/ML 3 ML KwikPen SUBCUT SCH ×4 (07:54→21:22)
[2022-01-26] MEDS: Haloperidol 5 MG Tab PO SCH ×2 (08:51→21:15)
[2022-01-26] MEDS: Magnesium Oxide 400 MG Tab PO SCH ×2 (08:51→21:16)
[2022-01-26] MEDS: Oxybutynin 5 MG Tab.ER PO SCH (08:53)
[2022-01-26] MEDS: FLUoxetine 20 MG Cap PO SCH (08:54)
[2022-01-26] MEDS: buPROPion 150 MG Tab.ER PO SCH (08:54)
[2022-01-26] MEDS: oxyCODONE 5 MG Tab PO PRN ×2 (08:56→21:15)
[2022-01-26] MEDS: Potassium Chloride 20 MEQ Tab.ER PO SCH (08:57)
[2022-01-26] MEDS: Ciprofloxacin 0.3% Ophth Soln 5 ML Bottle EARBOTH SCH (15:42)
[2022-01-26] MEDS: Benztropine 1 MG Tab PO SCH (21:16)
[2022-01-26] MEDS: Pramipexole 0.25 MG Tab PO SCH (21:17)
[2022-01-26] MEDS: Insulin Glargine,Human Rec. Analog 100 Units/ML 3 ML Pen SUBCUT SCH (21:18)
[2022-01-27] MEDS: Heparin Sodium 5,000 Units/ML Vial SUBCUT SCH ×3 (00:38→16:57)
[2022-01-27] MEDS: Insulin Lispro 100 Unit/ML 3 ML KwikPen SUBCUT SCH ×4 (07:50→20:27)
[2022-01-27] MEDS: Insulin Glargine,Human Rec. Analog 100 Units/ML 3 ML Pen SUBCUT SCH ×2 (08:08→08:12)
[2022-01-27] MEDS: FLUoxetine 20 MG Cap PO SCH (08:10)
[2022-01-27] MEDS: buPROPion 150 MG Tab.ER PO SCH (08:10)
[2022-01-27] MEDS: Oxybutynin 5 MG Tab.ER PO SCH (08:10)
[2022-01-27] MEDS: Potassium Chloride 20 MEQ Tab.ER PO SCH (08:11)
[2022-01-27] MEDS: Haloperidol 5 MG Tab PO SCH ×2 (08:11→20:24)
[2022-01-27] MEDS: Magnesium Oxide 400 MG Tab PO SCH ×2 (08:11→20:24)
[2022-01-27] MEDS: oxyCODONE 5 MG Tab PO PRN (13:45)
[2022-01-27] MEDS: Pramipexole 0.25 MG Tab PO SCH (20:24)
[2022-01-27] MEDS: Benztropine 1 MG Tab PO SCH (20:25)
[2022-01-27] MEDS ORDERED: Insulin Glargine,Human Rec. Analog 100 Units/ML 3 ML Pen SUBCUT SCH (21:00)
[2022-01-28] MEDS: Heparin Sodium 5,000 Units/ML Vial SUBCUT SCH ×4 (00:34→22:59)
[2022-01-28] MEDS: oxyCODONE 5 MG Tab PO PRN (00:35)
[2022-01-28] MEDS: Haloperidol 5 MG Tab PO SCH ×2 (08:07→20:38)
[2022-01-28] MEDS: Potassium Chloride 20 MEQ Tab.ER PO SCH (08:07)
[2022-01-28] MEDS: FLUoxetine 20 MG Cap PO SCH (08:07)
[2022-01-28] MEDS: Magnesium Oxide 400 MG Tab PO SCH ×2 (08:08→20:38)
[2022-01-28] MEDS: buPROPion 150 MG Tab.ER PO SCH (08:08)
[2022-01-28] MEDS: Insulin Glargine,Human Rec. Analog 100 Units/ML 3 ML Pen SUBCUT SCH ×2 (08:09→20:38)
[2022-01-28] MEDS: Insulin Lispro 100 Unit/ML 3 ML KwikPen SUBCUT SCH ×4 (08:11→20:39)
[2022-01-28] MEDS: Oxybutynin 5 MG Tab.ER PO SCH (09:59)
[2022-01-28] MEDS ORDERED: Acetaminophen 325 MG Tab PO PRN (10:54)
[2022-01-28] MEDS ORDERED: Lidocaine 4% 1 each Patch TOP SCH ×2 (11:00)
[2022-01-28] MEDS: Lidocaine 4% 1 each Patch TOP SCH (12:22)
[2022-01-28] MEDS: Acetaminophen 325 MG Tab PO SCH ×3 (12:23→20:37)
[2022-01-28] MEDS: Nicotine 7 MG/24 Hr Patch TRDERM SCH (14:01)
[2022-01-28] MEDS: Benztropine 1 MG Tab PO SCH (20:38)
[2022-01-28] MEDS: Pramipexole 0.25 MG Tab PO SCH (20:38)
[2022-01-29] MEDS: Insulin Lispro 100 Unit/ML 3 ML KwikPen SUBCUT SCH ×4 (06:36→21:23)
[2022-01-29] MEDS: Acetaminophen 325 MG Tab PO SCH ×4 (08:29→20:52)
[2022-01-29] MEDS: Haloperidol 5 MG Tab PO SCH ×2 (08:30→20:52)
[2022-01-29] MEDS: FLUoxetine 20 MG Cap PO SCH (08:30)
[2022-01-29] MEDS: Oxybutynin 5 MG Tab.ER PO SCH (08:31)
[2022-01-29] MEDS: Potassium Chloride 20 MEQ Tab.ER PO SCH (08:31)
[2022-01-29] MEDS: Magnesium Oxide 400 MG Tab PO SCH ×2 (08:31→20:52)
[2022-01-29] MEDS: buPROPion 150 MG Tab.ER PO SCH (08:31)
[2022-01-29] MEDS: Insulin Glargine,Human Rec. Analog 100 Units/ML 3 ML Pen SUBCUT SCH ×2 (08:32→21:23)
[2022-01-29] MEDS: Lidocaine 4% 1 each Patch TOP SCH (08:32)
[2022-01-29] MEDS: Heparin Sodium 5,000 Units/ML Vial SUBCUT SCH ×3 (08:32→23:49)
[2022-01-29] MEDS: Nicotine 7 MG/24 Hr Patch TRDERM SCH (14:15)
[2022-01-29] MEDS: oxyCODONE 5 MG Tab PO PRN (14:16)
[2022-01-29] MEDS: Benztropine 1 MG Tab PO SCH (20:51)
[2022-01-29] MEDS: Pramipexole 0.25 MG Tab PO SCH (20:53)
[2022-01-30] MEDS: Insulin Lispro 100 Unit/ML 3 ML KwikPen SUBCUT SCH ×4 (06:35→21:57)
[2022-01-30] MEDS: Magnesium Oxide 400 MG Tab PO SCH ×2 (09:30→21:59)
[2022-01-30] MEDS: Oxybutynin 5 MG Tab.ER PO SCH (09:31)
[2022-01-30] MEDS: buPROPion 150 MG Tab.ER PO SCH (09:32)
[2022-01-30] MEDS: Haloperidol 5 MG Tab PO SCH ×2 (09:32→21:57)
[2022-01-30] MEDS: Heparin Sodium 5,000 Units/ML Vial SUBCUT SCH ×2 (09:33→15:18)
[2022-01-30] MEDS: Acetaminophen 325 MG Tab PO SCH ×4 (09:33→22:00)
[2022-01-30] MEDS: Potassium Chloride 20 MEQ Tab.ER PO SCH (09:35)
[2022-01-30] MEDS: FLUoxetine 20 MG Cap PO SCH (09:35)
[2022-01-30] MEDS: Insulin Glargine,Human Rec. Analog 100 Units/ML 3 ML Pen SUBCUT SCH ×2 (09:36→21:58)
[2022-01-30] MEDS: Lidocaine 4% 1 each Patch TOP SCH (09:36)
[2022-01-30] MEDS: oxyCODONE 5 MG Tab PO PRN ×2 (14:29→22:01)
[2022-01-30] MEDS: Nicotine 7 MG/24 Hr Patch TRDERM SCH (14:31)
[2022-01-30] MEDS: Benztropine 1 MG Tab PO SCH (21:55)
[2022-01-30] MEDS: Pramipexole 0.25 MG Tab PO SCH (21:59)
[2022-01-31] MEDS: Heparin Sodium 5,000 Units/ML Vial SUBCUT SCH ×3 (01:30→15:36)
[2022-01-31] MEDS: Insulin Lispro 100 Unit/ML 3 ML KwikPen SUBCUT SCH ×4 (08:16→21:20)
[2022-01-31] MEDS: Insulin Glargine,Human Rec. Analog 100 Units/ML 3 ML Pen SUBCUT SCH ×2 (08:16→21:21)
[2022-01-31] MEDS: Oxybutynin 5 MG Tab.ER PO SCH (08:18)
[2022-01-31] MEDS: FLUoxetine 20 MG Cap PO SCH (08:19)
[2022-01-31] MEDS: buPROPion 150 MG Tab.ER PO SCH (08:20)
[2022-01-31] MEDS: Magnesium Oxide 400 MG Tab PO SCH ×2 (08:20→21:18)
[2022-01-31] MEDS: Haloperidol 5 MG Tab PO SCH ×2 (08:20→21:19)
[2022-01-31] MEDS: Acetaminophen 325 MG Tab PO SCH ×4 (08:21→21:17)
[2022-01-31] MEDS: Lidocaine 4% 1 each Patch TOP SCH (08:23)
[2022-01-31] MEDS: Potassium Chloride 20 MEQ Tab.ER PO SCH (08:23)
[2022-01-31] MEDS: Nicotine 7 MG/24 Hr Patch TRDERM SCH (13:39)
[2022-01-31] MEDS: oxyCODONE 5 MG Tab PO PRN (15:35)
[2022-01-31] MEDS: Benztropine 1 MG Tab PO SCH (21:17)
[2022-01-31] MEDS: Pramipexole 0.25 MG Tab PO SCH (21:20)
[2022-02-01] MEDS: Heparin Sodium 5,000 Units/ML Vial SUBCUT SCH ×3 (00:18→15:04)
[2022-02-01] MEDS: Insulin Lispro 100 Unit/ML 3 ML KwikPen SUBCUT SCH ×4 (07:07→20:33)
[2022-02-01] MEDS: Oxybutynin 5 MG Tab.ER PO SCH (08:34)
[2022-02-01] MEDS: Acetaminophen 325 MG Tab PO SCH ×4 (08:35→20:19)
[2022-02-01] MEDS: buPROPion 150 MG Tab.ER PO SCH (08:36)
[2022-02-01] MEDS: FLUoxetine 20 MG Cap PO SCH (08:36)
[2022-02-01] MEDS: Haloperidol 5 MG Tab PO SCH ×2 (08:36→20:21)
[2022-02-01] MEDS: Potassium Chloride 20 MEQ Tab.ER PO SCH (08:37)
[2022-02-01] MEDS: Magnesium Oxide 400 MG Tab PO SCH ×2 (08:37→20:21)
[2022-02-01] MEDS: Insulin Glargine,Human Rec. Analog 100 Units/ML 3 ML Pen SUBCUT SCH ×2 (08:38→20:34)
[2022-02-01] MEDS: Lidocaine 4% 1 each Patch TOP SCH (08:39)
[2022-02-01] MEDS: oxyCODONE 5 MG Tab PO PRN ×2 (12:04→20:20)
[2022-02-01] MEDS: Nicotine 7 MG/24 Hr Patch TRDERM SCH (15:03)
[2022-02-01] MEDS: Pramipexole 0.25 MG Tab PO SCH (20:21)
[2022-02-01] MEDS: Benztropine 1 MG Tab PO SCH (20:22)
[2022-02-02] MEDS: Heparin Sodium 5,000 Units/ML Vial SUBCUT SCH ×4 (00:38→23:28)
[2022-02-02] MEDS: Insulin Lispro 100 Unit/ML 3 ML KwikPen SUBCUT SCH ×4 (06:47→20:55)
[2022-02-02] MEDS: FLUoxetine 20 MG Cap PO SCH (08:28)
[2022-02-02] MEDS: Oxybutynin 5 MG Tab.ER PO SCH (08:28)
[2022-02-02] MEDS: Acetaminophen 325 MG Tab PO SCH ×4 (08:29→20:54)
[2022-02-02] MEDS: Potassium Chloride 20 MEQ Tab.ER PO SCH (08:29)
[2022-02-02] MEDS: buPROPion 150 MG Tab.ER PO SCH (08:29)
[2022-02-02] MEDS: Haloperidol 5 MG Tab PO SCH ×2 (08:29→20:54)
[2022-02-02] MEDS: Magnesium Oxide 400 MG Tab PO SCH ×2 (08:29→20:53)
[2022-02-02] MEDS: Insulin Glargine,Human Rec. Analog 100 Units/ML 3 ML Pen SUBCUT SCH ×2 (08:30→20:56)
[2022-02-02] MEDS: Lidocaine 4% 1 each Patch TOP SCH (08:30)
[2022-02-02] MEDS: oxyCODONE 5 MG Tab PO PRN ×2 (13:35→21:09)
[2022-02-02] MEDS: Nicotine 7 MG/24 Hr Patch TRDERM SCH (13:36)
[2022-02-02] MEDS: Pramipexole 0.25 MG Tab PO SCH (20:53)
[2022-02-02] MEDS: Benztropine 1 MG Tab PO SCH (20:53)
[2022-02-03] MEDS: Insulin Lispro 100 Unit/ML 3 ML KwikPen SUBCUT SCH ×4 (06:47→20:56)
[2022-02-03] MEDS: Heparin Sodium 5,000 Units/ML Vial SUBCUT SCH ×3 (08:47→23:18)
[2022-02-03] MEDS: Potassium Chloride 20 MEQ Tab.ER PO SCH (08:48)
[2022-02-03] MEDS: Magnesium Oxide 400 MG Tab PO SCH ×2 (08:48→20:54)
[2022-02-03] MEDS: buPROPion 150 MG Tab.ER PO SCH (08:48)
[2022-02-03] MEDS: Oxybutynin 5 MG Tab.ER PO SCH (08:48)
[2022-02-03] MEDS: Acetaminophen 325 MG Tab PO SCH ×4 (08:49→20:54)
[2022-02-03] MEDS: Haloperidol 5 MG Tab PO SCH ×2 (08:49→20:53)
[2022-02-03] MEDS: FLUoxetine 20 MG Cap PO SCH (08:49)
[2022-02-03] MEDS: Lidocaine 4% 1 each Patch TOP SCH (08:49)
[2022-02-03] MEDS: oxyCODONE 5 MG Tab PO PRN ×2 (08:51→20:53)
[2022-02-03] MEDS: Insulin Glargine,Human Rec. Analog 100 Units/ML 3 ML Pen SUBCUT SCH ×2 (08:54→20:55)
[2022-02-03] MEDS: Nicotine 7 MG/24 Hr Patch TRDERM SCH (14:32)
[2022-02-03] MEDS: Pramipexole 0.25 MG Tab PO SCH (20:53)
[2022-02-03] MEDS: Benztropine 1 MG Tab PO SCH (20:55)
[2022-02-04] MEDS: Insulin Lispro 100 Unit/ML 3 ML KwikPen SUBCUT SCH ×5 (07:40→21:09)
[2022-02-04] MEDS: Acetaminophen 325 MG Tab PO SCH ×4 (08:49→21:06)
[2022-02-04] MEDS: FLUoxetine 20 MG Cap PO SCH (08:50)
[2022-02-04] MEDS: Oxybutynin 5 MG Tab.ER PO SCH (08:50)
[2022-02-04] MEDS: Lidocaine 4% 1 each Patch TOP SCH (08:50)
[2022-02-04] MEDS: Magnesium Oxide 400 MG Tab PO SCH ×2 (08:50→21:04)
[2022-02-04] MEDS: Heparin Sodium 5,000 Units/ML Vial SUBCUT SCH ×3 (08:50→22:48)
[2022-02-04] MEDS: buPROPion 150 MG Tab.ER PO SCH (08:51)
[2022-02-04] MEDS: Haloperidol 5 MG Tab PO SCH ×2 (08:51→21:05)
[2022-02-04] MEDS: Insulin Glargine,Human Rec. Analog 100 Units/ML 3 ML Pen SUBCUT SCH ×2 (08:51→21:07)
[2022-02-04] MEDS: Potassium Chloride 20 MEQ Tab.ER PO SCH (08:51)
[2022-02-04] MEDS: oxyCODONE 5 MG Tab PO PRN ×3 (08:56→21:05)
[2022-02-04] MEDS ORDERED: Ondansetron 4 MG Tab.DIS PO ONE (09:55)
[2022-02-04] MEDS ORDERED: Ondansetron 4 MG Tab.DIS PO PRN (09:57)
[2022-02-04] MEDS: Nicotine 7 MG/24 Hr Patch TRDERM SCH (14:14)
[2022-02-04] MEDS: Pramipexole 0.25 MG Tab PO SCH (21:04)
[2022-02-04] MEDS: Benztropine 1 MG Tab PO SCH (21:05)
[2022-02-05] MEDS: Heparin Sodium 5,000 Units/ML Vial SUBCUT SCH ×2 (02:39→09:07)
[2022-02-05] MEDS ORDERED: Aluminum Hydroxide/Magnesium Hydroxide/Simethicone Susp 30 ML Cup PO PRN (07:09)
[2022-02-05] MEDS: Insulin Lispro 100 Unit/ML 3 ML KwikPen SUBCUT SCH ×5 (07:31→13:12)
[2022-02-05] MEDS: Insulin Glargine,Human Rec. Analog 100 Units/ML 3 ML Pen SUBCUT SCH ×2 (07:33→09:09)
[2022-02-05 08:04] VITALS: BP 145/81; PULSE 89
[2022-02-05] MEDS: Potassium Chloride 20 MEQ Tab.ER PO SCH (09:08)
[2022-02-05] MEDS: buPROPion 150 MG Tab.ER PO SCH (09:08)
[2022-02-05] MEDS: Lidocaine 4% 1 each Patch TOP SCH (09:08)
[2022-02-05] MEDS: Haloperidol 5 MG Tab PO SCH (09:08)
[2022-02-05] MEDS: Magnesium Oxide 400 MG Tab PO SCH (09:09)
[2022-02-05] MEDS: FLUoxetine 20 MG Cap PO SCH (09:09)
[2022-02-05] MEDS: Oxybutynin 5 MG Tab.ER PO SCH (09:09)
[2022-02-05] MEDS: Acetaminophen 325 MG Tab PO SCH ×2 (09:10→13:01)
[2022-02-05 11:34] LABS: ESTIMATED GFR > 60 mL/min (>60)
[2022-02-05] MEDS: Nicotine 7 MG/24 Hr Patch TRDERM SCH (14:54)
== END 2022-02-05 16:50 | disposition home health service (06) | DRG 690 ==
LOC: SUPCPDRO 11:47 → JD.ED 11:47 → JD.ICU 14:34 → OBSVTOIN 15:09 → JD.MS 01-22 18:27
PROVIDERS: ADMIT Hospitalist; ATTEND Internal Medicine
DX: N39.0 Urinary tract infection, site not specified (principal); F20.89 Other schizophrenia; W19.XXXA Unspecified fall, initial encounter; R44.3 Hallucinations, unspecified; R62.7 Adult failure to thrive; F32.A Depression, unspecified; J44.9 Chronic obstructive pulmonary disease, unspecified; R53.1 Weakness; E11.9 Type 2 diabetes mellitus without complications; R41.0 Disorientation, unspecified; D69.6 Thrombocytopenia, unspecified; F17.210 Nicotine dependence, cigarettes, uncomplicated; E87.6 Hypokalemia; R32 Unspecified urinary incontinence; E83.42 Hypomagnesemia; F32.89 Other specified depressive episodes; Z88.8 Allergy status to other drugs, medicaments and biological substances; E11.69 Type 2 diabetes mellitus with other specified complication; E03.9 Hypothyroidism, unspecified; F43.10 Post-traumatic stress disorder, unspecified; Z20.822 Contact with and (suspected) exposure to COVID-19; H60.503 Unspecified acute noninfective otitis externa, bilateral; F11.90 Opioid use, unspecified, uncomplicated; F12.90 Cannabis use, unspecified, uncomplicated; G40.909 Epilepsy, unspecified, not intractable, without status epilepticus; E78.5 Hyperlipidemia, unspecified; H54.7 Unspecified visual loss; E78.00 Pure hypercholesterolemia, unspecified; M19.90 Unspecified osteoarthritis, unspecified site; M25.551 Pain in right hip; G89.29 Other chronic pain; F17.200 Nicotine dependence, unspecified, uncomplicated; E86.0 Dehydration; F42.9 Obsessive-compulsive disorder, unspecified; Z91.81 History of falling; Z65.8 Other specified problems related to psychosocial circumstances; Z88.5 Allergy status to narcotic agent; Z79.4 Long term (current) use of insulin; Z79.899 Other long term (current) drug therapy; Z90.49 Acquired absence of other specified parts of digestive tract
CPT/HCPCS: 36415; 70450; 71045; 80053; 80143; 80179; 80306; 80307; 81001; 83036; 83735; 84443; 85025; 86140; 87086; 87088; 87186; 93005; 96365; 96368; 96375; 99285; J0696; J3475; J3480; J3490; J7030; 80048; 82947; 85027; 92523-GN; 93010; 97110-GP; 97116-GP; 97162-GP; 97530-GP; 99284; A9270-GY; J1644; J1815; J1815-GY; U0002

== ENCOUNTER 2022-02-11 11:09 | Emergency (ER) | payer MEDICARE ==
[2022-02-11 11:21] VITALS: BP 106/92; PULSE 115
== END 2022-02-11 18:00 | disposition home or self-care (01) ==
LOC: JD.ED 11:09 → SUPCPDRO 11:09 → JD.ED 18:00
DX: G89.29 Other chronic pain (principal); M25.551 Pain in right hip; E78.00 Pure hypercholesterolemia, unspecified; J44.9 Chronic obstructive pulmonary disease, unspecified; E11.9 Type 2 diabetes mellitus without complications; F17.210 Nicotine dependence, cigarettes, uncomplicated; E66.9 Obesity, unspecified; Z68.28 Body mass index [BMI] 28.0-28.9, adult; Z90.49 Acquired absence of other specified parts of digestive tract; Z88.5 Allergy status to narcotic agent; Z88.6 Allergy status to analgesic agent; Z79.899 Other long term (current) drug therapy; Z79.4 Long term (current) use of insulin
CPT/HCPCS: 36415; 70450; 70450-26; 73502-26-RT; 73502-RT; 80053; 80306; 80307; 81001; 85025; 99284-25

== ENCOUNTER 2022-02-12 08:17 | Emergency (ER) | payer MEDICARE ==
[2022-02-12] MEDS ORDERED: Sodium Chloride 0.9% 10 ML Syringe FLUSH PRN (08:42)
[2022-02-12] MEDS ORDERED: Meclizine 12.5 MG Tab PO ONE (08:43)
[2022-02-12] MEDS ORDERED: Sodium Chloride 0.9% 1,000 ML IV SCH (08:45)
[2022-02-12 10:02] LABS: ESTIMATED GFR > 60 mL/min (>60)
[2022-02-12] MEDS ORDERED: Insulin Regular, Human 100 Units/ML 3 ML Vial SUBCUT ONE (10:30)
[2022-02-12 11:54] VITALS: BP 118/78; PULSE 66
== END 2022-02-12 11:54 | disposition home or self-care (01) ==
LOC: JD.ED 08:17
DX: R42 Dizziness and giddiness (principal); E11.65 Type 2 diabetes mellitus with hyperglycemia; E78.00 Pure hypercholesterolemia, unspecified; J44.9 Chronic obstructive pulmonary disease, unspecified; M19.90 Unspecified osteoarthritis, unspecified site; E03.9 Hypothyroidism, unspecified; E66.9 Obesity, unspecified; Z68.41 Body mass index [BMI] 40.0-44.9, adult; Z88.5 Allergy status to narcotic agent; Z79.4 Long term (current) use of insulin; Z79.899 Other long term (current) drug therapy
CPT/HCPCS: 36415; 80053; 82009; 82800; 82947; 83930; 85025; 96360; 99284; A9270; J1815; J3490; J7030

== ENCOUNTER 2022-02-19 09:45 | Emergency (ER) | payer MEDICARE ==
[2022-02-19] MEDS ORDERED: Sodium Chloride 0.9% 10 ML Syringe FLUSH PRN ×2 (10:06→11:32)
[2022-02-19] MEDS ORDERED: Insulin Regular, Human 100 Units/ML 3 ML Vial SUBCUT ONE (10:36)
[2022-02-19] MEDS ORDERED: Sodium Chloride 0.9% 1,000 ML IV SCH (10:45)
[2022-02-19] MEDS ORDERED: Iopamidol 755 Mg/ML 100 ML Bottle IVPUSH ONE (11:32)
[2022-02-19] MEDS ORDERED: Sodium Chloride 0.9% 100 ML IV SCH (11:45)
[2022-02-19] MEDS ORDERED: cefTRIAXone 1 GM in Sodium Chloride 0.9% 100 ML IV ONE (14:44)
[2022-02-19 17:53] VITALS: BP 108/55; PULSE 92
== END 2022-02-19 19:44 | disposition home or self-care (01) ==
LOC: JD.ED 09:45
DX: N39.0 Urinary tract infection, site not specified (principal); F20.89 Other schizophrenia; E11.65 Type 2 diabetes mellitus with hyperglycemia; J44.9 Chronic obstructive pulmonary disease, unspecified; E78.00 Pure hypercholesterolemia, unspecified; E03.9 Hypothyroidism, unspecified; E66.9 Obesity, unspecified; Z68.31 Body mass index [BMI] 31.0-31.9, adult; Z88.5 Allergy status to narcotic agent; Z79.4 Long term (current) use of insulin; Z79.899 Other long term (current) drug therapy
CPT/HCPCS: 36415; 70450; 70496; 70498; 70551; 80053; 81001; 82947; 83735; 84484; 85025; 85610; 85730; 86140; 87086; 93005; 96361; 96365; 99284; J0696; J1815; J3490; J7030; Q9967

== ENCOUNTER 2022-02-23 11:15 | Emergency (ER) | payer MEDICARE, MEDICAID ==
[2022-02-23] MEDS ORDERED: Sodium Chloride 0.9% 10 ML Syringe FLUSH PRN (11:31)
[2022-02-23 11:33] VITALS: BP 117/80; PULSE 101
[2022-02-23 12:53] LABS: ESTIMATED GFR 82 mL/min (>60)
[2022-02-23 12:56] LABS: ACETAMINOPHEN 0 ug/mL (10-30)
[2022-02-23] MEDS ORDERED: Insulin Lispro 100 Unit/ML 3 ML KwikPen SUBCUT ONE (13:20)
[2022-02-23] MEDS ORDERED: Magnesium Oxide 400 MG Tab PO ONE (13:40)
== END 2022-02-23 15:42 ==
LOC: JD.ED 11:15
DX: F20.89 Other schizophrenia (principal); E78.00 Pure hypercholesterolemia, unspecified; J44.9 Chronic obstructive pulmonary disease, unspecified; M19.90 Unspecified osteoarthritis, unspecified site; Z88.5 Allergy status to narcotic agent; Z79.4 Long term (current) use of insulin; Z20.822 Contact with and (suspected) exposure to COVID-19
CPT/HCPCS: 36415; 80053; 80143; 80179; 80306; 80307; 81003; 83735; 84443; 85025; 86140; 99285; A9270; J1815; U0002; 99283

== ENCOUNTER 2022-12-01 06:30 | Day surgery (SDC) | payer MEDICARE, MEDICAID ==
[~2022-12-01 06:30] MED LIST: Lactated Ringers 1,000 ML IV SCH; Lidocaine 1%/Sod Bicarbonate in NS 8.4% 1 ML Syringe IDERM PRN; Morphine 8 MG, EPINEPHrine 0.3 MG, Cefuroxime 750 MG, Ketorolac 30 MG, Sodium Chloride ... PRN; Sodium Chloride 0.9% 10 ML Syringe FLUSH PRN; Sodium Chloride 0.9% 10 ML Syringe FLUSH SCH
[2022-12-01] MEDS ORDERED: Tranexamic Acid 1,000 MG/10 ML Vial ONE (07:07)
[2022-12-01] MEDS ORDERED: Vancomycin 1 GM SDV ONE (07:07)
[2022-12-01] MEDS ORDERED: HYDROmorphone 0.5 MG/0.5 ML Syringe IVPUSH PRN (07:14)
[2022-12-01] MEDS ORDERED: Ondansetron 4 MG/2 ML SDV IVPUSH PRN (07:14)
[2022-12-01] MEDS ORDERED: fentaNYL 100 MCG/2 ML SDV IVPUSH PRN (07:14)
[2022-12-01] MEDS ORDERED: Ondansetron 4 MG/2 ML SDV ONE (07:19)
[2022-12-01] MEDS ORDERED: Lidocaine 1% 2 ML ONE (07:19)
[2022-12-01] MEDS ORDERED: Propofol 200 MG/20 ML SDV ONE (07:19)
[2022-12-01] MEDS ORDERED: ceFAZolin 2 GM Vial ONE (07:19)
[2022-12-01] MEDS ORDERED: Midazolam 1 MG/ML 2 ML SDV ONE ×2 (07:20→08:48)
[2022-12-01] MEDS ORDERED: fentaNYL 100 MCG/2 ML SDV ONE (07:20)
[2022-12-01] MEDS ORDERED: Phenylephrine 1% 10 MG/ML SDV ONE (08:15)
[2022-12-01] MEDS ORDERED: oxyCODONE 5 MG Tab PO PRN (13:52)
[2022-12-01 16:44] VITALS: BP 96/68; PULSE 86
== END 2022-12-01 15:15 | disposition home or self-care (01) ==
LOC: JD.SDS 06:30
PROVIDERS: ATTEND Orthopaedic Surgery
DX: M16.11 Unilateral primary osteoarthritis, right hip (principal); E11.65 Type 2 diabetes mellitus with hyperglycemia; E78.5 Hyperlipidemia, unspecified; J44.9 Chronic obstructive pulmonary disease, unspecified; G25.81 Restless legs syndrome; F41.1 Generalized anxiety disorder; E11.21 Type 2 diabetes mellitus with diabetic nephropathy; N32.81 Overactive bladder; E03.9 Hypothyroidism, unspecified; G89.4 Chronic pain syndrome; Z86.19 Personal history of other infectious and parasitic diseases; Z79.4 Long term (current) use of insulin; Z79.84 Long term (current) use of oral hypoglycemic drugs; Z79.899 Other long term (current) drug therapy; Z88.5 Allergy status to narcotic agent; Z88.8 Allergy status to other drugs, medicaments and biological substances; Z87.891 Personal history of nicotine dependence
CPT/HCPCS: 0055T; 27130; 36415; 73501; 86850; 86900; 86901; 97110; 97116; 97162; A9270; C1713; C1776; J0171; J0690; J0697; J1885; J2250; J2270; J2370; J2405; J2704; J3010; J3370; J7120; 01214; 97530-GP; J3490

== ENCOUNTER 2023-03-11 10:23 | Emergency (ER) | payer MEDICARE, MEDICAID ==
[2023-03-11 11:17] LABS: BASOPHILS ABSOLUTE AUTO 0.02 K/mm3 (0.01-0.08); BASOPHILS PERCENT AUTO 0.4 % (0.1-1.2); EOSINOPHILS ABSOLUTE AUTO 0.09 K/mm3 (0.04-0.36); EOSINOPHILS PERCENT AUTO 1.9 (0.7-5.8); HEMATOCRIT 39.9 % (34.1-44.9); HEMOGLOBIN 12.4 gm/dl (11.2-15.7); IMMATURE GRAN ABSOLUTE AUTO 0.01 K/mm3 (0.00-0.10); IMMATURE GRAN PERCENT AUTO 0.2 % (<=1.0); LYMPHOCYTES ABSOLUTE AUTO 0.73 K/mm3 (1.18-3.74); LYMPHOCYTES PERCENT AUTO 15.4 % (19.3-51.7); MEAN CORPUSCULAR HEMOGLOBIN 27.3 pg (25.6-32.2); MEAN CORPUSCULAR HGB CONC 31.1 g/dl (32.2-35.5); MEAN CORPUSCULAR VOLUME 87.9 fl (79.4-94.8); MEAN PLATELET VOLUME 11.2 fl (9.4-12.3); MONOCYTES ABSOLUTE AUTO 0.46 K/mm3 (0.24-0.36); MONOCYTES PERCENT AUTO 9.7 % (4.7-12.5); NEUTROPHILS ABSOLUTE AUTO 3.42 K/mm3 (1.56-6.13); NEUTROPHILS PERCENT AUTO 72.4 % (34.0-71.1); PLATELET COUNT,PLT 161 K/mm3 (182-369); RED BLOOD CELL COUNT 4.54 M/mm3 (3.98-5.22); WHITE BLOOD CELL COUNT,WBC 4.73 K/mm3 (3.98-10.04)
[2023-03-11] MEDS ORDERED: Iopamidol 612 MG/ML 100 ML Bottle IVPUSH ONE (11:29)
[2023-03-11] MEDS ORDERED: Sodium Chloride 0.9% 10 ML Syringe FLUSH ONE (11:29)
[2023-03-11] MEDS ORDERED: Sodium Chloride 0.9% 1,000 ML IV ONE (11:36)
[2023-03-11] MEDS ORDERED: Ondansetron 4 MG/2 ML SDV IVPUSH ONE (11:36)
[2023-03-11] MEDS ORDERED: Loperamide 2 MG Cap PO ONE ×2 (11:36→14:08)
[2023-03-11 11:53] LABS: A/G RATIO 0.6 (1-2); ALANINE AMINOTRANSFERASE,ALT 76 U/L (14-59); ALBUMIN 2.8 g/dl (3.4-5.0); ALKALINE PHOSPHATASE 202 U/L (46-116); ANION GAP 9.1 (5-15); ASPARTATE AMNIOTRANSFERASE,AST 63 U/L (15-37); BILIRUBIN TOTAL 0.4 mg/dL (0.2-1.0); BLOOD UREA NITROGEN,BUN 17 mg/dL (7-18); BUN/CREATININE RATIO 18.9 (14-18); CALCIUM 8.6 mg/dL (8.5-10.1); CARBON DIOXIDE,CO2 29 mEq/L (21-32); CHLORIDE,CL 99 mEq/L (98-107); CREATININE 0.9 mg/dL (0.55-1.02); EST CRCL DRUG DOSING (CG) 56.08 mL/min; ESTIMATED GFR 71 mL/min (>60); GLUCOSE RANDOM 324 mg/dL (70-99); MAGNESIUM 1.9 mg/dL (1.8-2.4); POTASSIUM,K 4.1 mEq/L (3.5-5.1); PROTEIN TOTAL,TP 7.6 g/dl (6.4-8.2); SODIUM,NA 133 mEq/L (136-145)
[2023-03-11 11:55] LABS: LIPASE < 10 U/L (73-393)
[2023-03-11] MEDS ORDERED: Iopamidol 612 MG/ML 30 ML SDV IVPUSH ONE (12:07)
[2023-03-11 13:19] LABS: APPEARANCE,URINE CLOUDY (Clear); BILIRUBIN,URINE NEGATIVE (Negative); COLOR,URINE YELLOW (Yellow); GLUCOSE,URINE TRACE (Negative); KETONES,URINE NEGATIVE (Negative); LEUKOCYTE ESTERASE,URINE 3+ (Negative); NITRITE,URINE POSITIVE (Negative); OCCULT BLOOD,URINE TRACE-INTACT (Negative); PH,URINE 6.5 (5.0-8.0); PROTEIN,URINE NEGATIVE (Negative); UROBILINOGEN,URINE 0.2 (0.2-1.0)
[2023-03-11 13:47] LABS: EPITHELIAL CELLS,URINE 0-5 /hpf (0-5); WBC,URINE 50-75 /hpf (0-5)
[2023-03-11 13:48] LABS: BACTERIA,URINE MANY /hpf (FEW); MUCUS,URINE FEW /hpf (FEW)
[2023-03-11 15:21] VITALS: BP 129/87; PULSE 86
== END 2023-03-11 15:00 | disposition home or self-care (01) ==
LOC: JD.ED 10:23
DX: K52.9 Noninfective gastroenteritis and colitis, unspecified (principal); N30.00 Acute cystitis without hematuria; J44.9 Chronic obstructive pulmonary disease, unspecified; M19.90 Unspecified osteoarthritis, unspecified site; E11.9 Type 2 diabetes mellitus without complications; E03.9 Hypothyroidism, unspecified; E66.9 Obesity, unspecified; Z68.39 Body mass index [BMI] 39.0-39.9, adult; Z98.890 Other specified postprocedural states; Z88.5 Allergy status to narcotic agent; Z88.6 Allergy status to analgesic agent; Z79.82 Long term (current) use of aspirin; Z79.899 Other long term (current) drug therapy; Z79.4 Long term (current) use of insulin
CPT/HCPCS: 36415; 74177; 80053; 81001; 83690; 83735; 85025; 86140; 87086; 87088; 87186; 87493; 96361; 96374; 99284; A9270; J2405; J3490; J7030; Q9967

== ENCOUNTER 2024-04-23 15:09 | Emergency (ER) | payer MEDICARE, MEDICAID ==
[2024-04-23 16:11] LABS: BASOPHILS PERCENT AUTO 0.3 % (0.0-1.0); EOSINOPHILS ABSOLUTE AUTO 0.3 K/mm3 (0.0-0.4); EOSINOPHILS PERCENT AUTO 5.2 % (0.0-6.0); HEMATOCRIT 39.3 % (37.0-47.0); HEMOGLOBIN 12.8 gm/dl (12.0-16.0); IMMATURE GRAN ABSOLUTE AUTO 0.01 K/mm3 (0.00-0.05); IMMATURE GRAN PERCENT AUTO 0.2 % (0.0-0.4); LYMPHOCYTES ABSOLUTE AUTO 1.1 K/mm3 (1.0-4.8); MEAN CORPUSCULAR HEMOGLOBIN 29.1 pg (28.0-32.0); MEAN CORPUSCULAR HGB CONC 32.6 g/dl (32.0-36.0); MEAN CORPUSCULAR VOLUME 89.3 fl (83.0-99.0); MEAN PLATELET VOLUME 12.5 fl (9.4-12.3); MONOCYTES ABSOLUTE AUTO 0.4 K/mm3 (0.0-0.8); MONOCYTES PERCENT AUTO 7.3 % (0.0-8.0); NEUTROPHILS ABSOLUTE AUTO 3.9 K/mm3 (1.8-7.7); PLATELET COUNT,PLT 107 K/mm3 (150-400); WHITE BLOOD CELL COUNT,WBC 5.75 K/mm3 (3.9-11.3)
[2024-04-23 16:13] VITALS: BP 106/60; PULSE 72
[2024-04-23] MEDS: Lactated Ringers 1,000 ML IV SCH (16:17)
[2024-04-23 16:41] LABS: A/G RATIO 0.7 (1-2); ANION GAP 7.3 (5-15); BILIRUBIN TOTAL 0.8 mg/dL (0.2-1.0); BUN/CREATININE RATIO 20.9 (14-18); C-REACTIVE PROTEIN 0.47 mg/dL (<0.30); CALCIUM 8.7 mg/dL (8.5-10.1); CREATININE 1.1 mg/dL (0.55-1.02); EST CRCL DRUG DOSING (CG) 43.44 mL/min; MAGNESIUM 1.6 mg/dL (1.8-2.4); POTASSIUM,K 3.3 mEq/L (3.5-5.1); PROTEIN TOTAL,TP 7.2 g/dl (6.4-8.2)
[2024-04-23 16:43] LABS: CORONAVIRUS COVID-19 NAA NEGATIVE (NEGATIVE); INFLUENZA A NAA NEGATIVE (NEGATIVE); RESPIRATORY SYNCYTIAL VIR NAA NEGATIVE (NEGATIVE)
[2024-04-23 16:44] LABS: HEMOGLOBIN A1C 9.1 %
[2024-04-23 16:47] LABS: LACTIC ACID 1.1 mmol/L (0.4-2.0)
[2024-04-23 17:22] LABS: APPEARANCE,URINE SLT CLOUDY (Clear); BILIRUBIN,URINE NEGATIVE (Negative); COLOR,URINE YELLOW (Yellow); GLUCOSE,URINE NEGATIVE (Negative); KETONES,URINE TRACE (Negative); LEUKOCYTE ESTERASE,URINE 2+ (Negative); NITRITE,URINE NEGATIVE (Negative); OCCULT BLOOD,URINE NEGATIVE (Negative); PROTEIN,URINE NEGATIVE (Negative)
[2024-04-23 17:31] LABS: BACTERIA,URINE MANY /hpf (FEW); MUCUS,URINE FEW /hpf (FEW); RBC,URINE 0-5 /hpf (0-5); SQUAMOUS EPITHELIAL CELLS,UR 0-5 /hpf (0-5); WBC,URINE 40-50 /hpf (0-5)
[2024-04-23] MEDS: cefTRIAXone 2 GM in Sodium Chloride 0.9% 100 ML IV ONE (18:11)
[2024-04-23] MEDS: Sodium Chloride 0.9% 1,000 ML IV ONE (18:12)
[2024-04-23] MEDS: Ibuprofen 400 MG Tab PO ONE (18:13)
[2024-04-23] MEDS: Magnesium Oxide 400 MG Tab PO ONE (18:20)
== END 2024-04-23 19:15 | disposition home or self-care (01) ==
LOC: JD.ED 15:09
DX: N39.0 Urinary tract infection, site not specified (principal); I50.9 Heart failure, unspecified; E78.00 Pure hypercholesterolemia, unspecified; J44.9 Chronic obstructive pulmonary disease, unspecified; E11.40 Type 2 diabetes mellitus with diabetic neuropathy, unspecified; E66.9 Obesity, unspecified; E03.9 Hypothyroidism, unspecified; Z79.899 Other long term (current) drug therapy; Z79.84 Long term (current) use of oral hypoglycemic drugs; Z79.890 Hormone replacement therapy; Z79.82 Long term (current) use of aspirin; Z79.51 Long term (current) use of inhaled steroids; Z88.5 Allergy status to narcotic agent; Z88.6 Allergy status to analgesic agent; Z68.38 Body mass index [BMI] 38.0-38.9, adult
CPT/HCPCS: 0241U; 36415; 71045; 80053; 81001; 82947; 83036; 83605; 83735; 83880; 84484; 85025; 86140; 87040; 87086; 87088; 87186; 93005; 96361; 96365; 99285; A9270; C1758; J0696; J3490; J7030; J7120; 93010; 99283

== ENCOUNTER 2024-04-30 16:37 | Emergency (ER) | payer MEDICARE, MEDICAID ==
[2024-04-30] MEDS ORDERED: Sodium Chloride 0.9% 10 ML Syringe FLUSH PRN (17:43)
[2024-04-30 18:28] LABS: BASOPHILS PERCENT AUTO 0.6 % (0.0-1.0); EOSINOPHILS ABSOLUTE AUTO 0.2 K/mm3 (0.0-0.4); EOSINOPHILS PERCENT AUTO 6.8 % (0.0-6.0); HEMATOCRIT 37.9 % (37.0-47.0); HEMOGLOBIN 12.1 gm/dl (12.0-16.0); IMMATURE GRAN ABSOLUTE AUTO 0.01 K/mm3 (0.00-0.05); IMMATURE GRAN PERCENT AUTO 0.3 % (0.0-0.4); LYMPHOCYTES ABSOLUTE AUTO 1.1 K/mm3 (1.0-4.8); LYMPHOCYTES PERCENT AUTO 31.1 % (24.0-44.0); MEAN CORPUSCULAR HEMOGLOBIN 29.3 pg (28.0-32.0); MEAN CORPUSCULAR HGB CONC 31.9 g/dl (32.0-36.0); MEAN CORPUSCULAR VOLUME 91.8 fl (83.0-99.0); MEAN PLATELET VOLUME 12.3 fl (9.4-12.3); MONOCYTES ABSOLUTE AUTO 0.3 K/mm3 (0.0-0.8); MONOCYTES PERCENT AUTO 9.1 % (0.0-8.0); NEUTROPHILS ABSOLUTE AUTO 1.8 K/mm3 (1.8-7.7); NEUTROPHILS PERCENT AUTO 52.1 % (41.0-71.0); PLATELET COUNT,PLT 101 K/mm3 (150-400); RED BLOOD CELL COUNT 4.13 M/mm3 (4.10-5.30); WHITE BLOOD CELL COUNT,WBC 3.51 K/mm3 (3.9-11.3)
[2024-04-30 18:53] LABS: INR 1.17; PROTHROMBIN TIME 12.3 SECONDS (9.7-12.0)
[2024-04-30 18:54] LABS: PTT,PARTIAL THROMBOPLSTIN TIME 27.6 SECONDS (21.7-31.4)
[2024-04-30] MEDS: Iopamidol 755 MG/ML 50 ML Bottle IVPUSH ONE (18:54)
[2024-04-30] MEDS ORDERED: Sodium Chloride 0.9% 100 ML IV SCH (19:00)
[2024-04-30 19:18] LABS: A/G RATIO 0.6 (1-2); ALANINE AMINOTRANSFERASE,ALT 41 U/L (14-59); ALBUMIN 2.6 g/dl (3.4-5.0); ALKALINE PHOSPHATASE 133 U/L (46-116); ANION GAP 8.3 (5-15); ASPARTATE AMNIOTRANSFERASE,AST 49 U/L (15-37); BILIRUBIN TOTAL 0.5 mg/dL (0.2-1.0); BLOOD UREA NITROGEN,BUN 23 mg/dL (7-18); BUN/CREATININE RATIO 19.2 (14-18); CALCIUM 8.6 mg/dL (8.5-10.1); CARBON DIOXIDE,CO2 30 mEq/L (21-32); CHLORIDE,CL 104 mEq/L (98-107); CREATININE 1.2 mg/dL (0.55-1.02); EST CRCL DRUG DOSING (CG) 39.82 mL/min; ESTIMATED GFR 50 mL/min (>60); GLUCOSE RANDOM 275 mg/dL (70-99); POTASSIUM,K 4.3 mEq/L (3.5-5.1); PROTEIN TOTAL,TP 6.7 g/dl (6.4-8.2); SODIUM,NA 138 mEq/L (136-145)
[2024-04-30 19:26] LABS: TROPONIN I HIGH SENSITIVITY < 4 pg/mL (<=51)
[2024-04-30 21:16] LABS: APPEARANCE,URINE CLEAR (Clear); BILIRUBIN,URINE NEGATIVE (Negative); COLOR,URINE YELLOW (Yellow); GLUCOSE,URINE TRACE (Negative); KETONES,URINE NEGATIVE (Negative); LEUKOCYTE ESTERASE,URINE 2+ (Negative); NITRITE,URINE NEGATIVE (Negative); OCCULT BLOOD,URINE NEGATIVE (Negative); PROTEIN,URINE NEGATIVE (Negative)
[2024-04-30 21:24] LABS: BACTERIA,URINE MODERATE /hpf (FEW); MUCUS,URINE FEW /hpf (FEW); RBC,URINE 0-5 /hpf (0-5); WBC,URINE 40-50 /hpf (0-5)
[2024-05-01 04:49] VITALS: BP 149/87; PULSE 74
[2024-05-01] MEDS: Cefdinir 300 MG Cap PO ONE (04:49)
== END 2024-05-01 04:47 | disposition home or self-care (01) ==
LOC: JD.ED 16:37
DX: N30.00 Acute cystitis without hematuria (principal); R41.0 Disorientation, unspecified; F22 Delusional disorders; R53.83 Other fatigue; J44.9 Chronic obstructive pulmonary disease, unspecified; I50.9 Heart failure, unspecified; E78.00 Pure hypercholesterolemia, unspecified; E11.9 Type 2 diabetes mellitus without complications; E03.9 Hypothyroidism, unspecified; E66.9 Obesity, unspecified; Z88.5 Allergy status to narcotic agent; Z88.6 Allergy status to analgesic agent; Z79.899 Other long term (current) drug therapy; Z79.82 Long term (current) use of aspirin; Z68.41 Body mass index [BMI] 40.0-44.9, adult
CPT/HCPCS: 36415; 70450; 70496; 70498; 71046; 80053; 81001; 82947; 83605; 84484; 85025; 85610; 85730; 87086; 99284; A9270; Q9967; 87088; 87186

== ENCOUNTER 2024-05-01 12:12 | Emergency (ER) | payer MEDICARE, MEDICAID ==
[2024-05-01 12:53] VITALS: BP 159/93; PULSE 103
[2024-05-01 14:28] LABS: A/G RATIO 0.7 (1-2); ALBUMIN 3.1 g/dl (3.4-5.0); ANION GAP 10.3 (5-15); BILIRUBIN TOTAL 0.7 mg/dL (0.2-1.0); BUN/CREATININE RATIO 14.4 (14-18); CALCIUM 8.9 mg/dL (8.5-10.1); CREATININE 0.9 mg/dL (0.55-1.02); EST CRCL DRUG DOSING (CG) 55.33 mL/min; POTASSIUM,K 4.3 mEq/L (3.5-5.1); PROTEIN TOTAL,TP 7.7 g/dl (6.4-8.2); TSH 1.755 uIU/mL (0.358-3.74)
[2024-05-01 14:33] LABS: APPEARANCE,URINE CLEAR (Clear); BILIRUBIN,URINE NEGATIVE (Negative); COLOR,URINE YELLOW (Yellow); GLUCOSE,URINE 2+ (Negative); KETONES,URINE 1+ (Negative); LEUKOCYTE ESTERASE,URINE 1+ (Negative); NITRITE,URINE NEGATIVE (Negative); OCCULT BLOOD,URINE 1+ (Negative); PROTEIN,URINE NEGATIVE (Negative); UROBILINOGEN,URINE 0.2 (0.2-1.0)
[2024-05-01 14:34] LABS: BARBITURATE SCREEN,URINE NEGATIVE (CUTOFF=200); BENZODIAZEPINES SCREEN,URINE NEGATIVE (CUTOFF=150); BUPRENORPHINE SCREEN,URINE NEGATIVE (CUTOFF=10); METHADONE SCREEN, URINE NEGATIVE (CUTOFF=200); METHAMPHETAMINES SCREEN, URINE NEGATIVE (CUTOFF=500); OXYCODONE SCREEN,URINE NEGATIVE (CUT0FF=100); THC SCREEN,URINE 20 NG/ML NEGATIVE (CUTOFF=50)
[2024-05-01 14:41] LABS: AMPHETAMINES SCREEN, URINE NEGATIVE (CUTOFF=500)
[2024-05-01 14:45] LABS: BASOPHILS PERCENT AUTO 0.7 % (0.0-1.0); EOSINOPHILS ABSOLUTE AUTO 0.1 K/mm3 (0.0-0.4); EOSINOPHILS PERCENT AUTO 1.7 % (0.0-6.0); HEMATOCRIT 39.8 % (37.0-47.0); IMMATURE GRAN ABSOLUTE AUTO 0.02 K/mm3 (0.00-0.05); IMMATURE GRAN PERCENT AUTO 0.5 % (0.0-0.4); LYMPHOCYTES ABSOLUTE AUTO 0.8 K/mm3 (1.0-4.8); MEAN CORPUSCULAR HEMOGLOBIN 29.1 pg (28.0-32.0); MEAN CORPUSCULAR HGB CONC 32.7 g/dl (32.0-36.0); MEAN CORPUSCULAR VOLUME 89.2 fl (83.0-99.0); MEAN PLATELET VOLUME 12.7 fl (9.4-12.3); MONOCYTES ABSOLUTE AUTO 0.3 K/mm3 (0.0-0.8); MONOCYTES PERCENT AUTO 7.1 % (0.0-8.0); PLATELET COUNT,PLT 106 K/mm3 (150-400); RED BLOOD CELL COUNT 4.46 M/mm3 (4.10-5.30); WHITE BLOOD CELL COUNT,WBC 4.22 K/mm3 (3.9-11.3)
[2024-05-01 15:27] LABS: BACTERIA,URINE FEW /hpf (FEW); EPITHELIAL CELLS,URINE 0-5 /hpf (0-5); MUCUS,URINE FEW /hpf (FEW)
== END 2024-05-01 17:09 | disposition home or self-care (01) ==
LOC: JD.ED 12:12
DX: R19.7 Diarrhea, unspecified (principal); I50.9 Heart failure, unspecified; J44.9 Chronic obstructive pulmonary disease, unspecified; E11.9 Type 2 diabetes mellitus without complications; E03.9 Hypothyroidism, unspecified; E66.9 Obesity, unspecified; E78.00 Pure hypercholesterolemia, unspecified; Z79.82 Long term (current) use of aspirin; Z79.899 Other long term (current) drug therapy; Z79.84 Long term (current) use of oral hypoglycemic drugs; Z88.5 Allergy status to narcotic agent; Z88.6 Allergy status to analgesic agent; Z68.41 Body mass index [BMI] 40.0-44.9, adult
CPT/HCPCS: 36415; 80053; 80143; 80179; 80306; 80307; 81001; 84443; 85025; 87086; 99282; 99284

== ENCOUNTER 2024-05-02 11:29 | Emergency (ER) | payer MEDICARE, MEDICAID ==
[2024-05-02 13:03] LABS: BASOPHILS PERCENT AUTO 0.2 % (0.0-1.0); EOSINOPHILS ABSOLUTE AUTO 0.1 K/mm3 (0.0-0.4); HEMATOCRIT 40.1 % (37.0-47.0); HEMOGLOBIN 13.1 gm/dl (12.0-16.0); IMMATURE GRAN ABSOLUTE AUTO 0.01 K/mm3 (0.00-0.05); IMMATURE GRAN PERCENT AUTO 0.2 % (0.0-0.4); LYMPHOCYTES ABSOLUTE AUTO 0.7 K/mm3 (1.0-4.8); MEAN CORPUSCULAR HEMOGLOBIN 29.2 pg (28.0-32.0); MEAN CORPUSCULAR HGB CONC 32.7 g/dl (32.0-36.0); MEAN CORPUSCULAR VOLUME 89.5 fl (83.0-99.0); MEAN PLATELET VOLUME 12.2 fl (9.4-12.3); MONOCYTES ABSOLUTE AUTO 0.3 K/mm3 (0.0-0.8); MONOCYTES PERCENT AUTO 6.1 % (0.0-8.0); NEUTROPHILS PERCENT AUTO 79.5 % (41.0-71.0); PLATELET COUNT,PLT 105 K/mm3 (150-400); RED BLOOD CELL COUNT 4.48 M/mm3 (4.10-5.30); WHITE BLOOD CELL COUNT,WBC 5.08 K/mm3 (3.9-11.3)
[2024-05-02 13:30] LABS: APPEARANCE,URINE CLOUDY (Clear); BILIRUBIN,URINE NEGATIVE (Negative); COLOR,URINE YELLOW (Yellow); GLUCOSE,URINE 2+ (Negative); KETONES,URINE 2+ (Negative); LEUKOCYTE ESTERASE,URINE 1+ (Negative); NITRITE,URINE NEGATIVE (Negative); OCCULT BLOOD,URINE 1+ (Negative); PH,URINE 7.5 (5.0-8.0); PROTEIN,URINE 1+ (Negative)
[2024-05-02 13:30] LABS: ANION GAP 13.9 (5-15); EST CRCL DRUG DOSING (CG) 49.8 mL/min; POTASSIUM,K 3.9 mEq/L (3.5-5.1); PROTEIN TOTAL,TP 7.6 g/dl (6.4-8.2)
[2024-05-02 13:31] LABS: A/G RATIO 0.7 (1-2); BILIRUBIN TOTAL 0.9 mg/dL (0.2-1.0); TSH 2.933 uIU/mL (0.358-3.74)
[2024-05-02 13:35] LABS: BARBITURATE SCREEN,URINE NEGATIVE (CUTOFF=200); BENZODIAZEPINES SCREEN,URINE NEGATIVE (CUTOFF=150); BUPRENORPHINE SCREEN,URINE NEGATIVE (CUTOFF=10); METHADONE SCREEN, URINE NEGATIVE (CUTOFF=200); METHAMPHETAMINES SCREEN, URINE NEGATIVE (CUTOFF=500); OXYCODONE SCREEN,URINE NEGATIVE (CUT0FF=100); THC SCREEN,URINE 20 NG/ML NEGATIVE (CUTOFF=50)
[2024-05-02 13:39] LABS: AMPHETAMINES SCREEN, URINE NEGATIVE (CUTOFF=500)
[2024-05-02 13:58] LABS: BACTERIA,URINE FEW /hpf (FEW); MUCUS,URINE NOT SEEN /hpf (FEW); SQUAMOUS EPITHELIAL CELLS,UR 0-5 /hpf (0-5); WBC CLUMPS,URINE MODERATE /hpf (NOT SEEN); WBC,URINE TOO NUMEROUS TO CNT /hpf (0-5)
[2024-05-02] MEDS: cefTRIAXone 1 GM, Lidocaine 1% 2.1 ML IM ONE (16:06)
[2024-05-02] MEDS: Insulin Regular, Human 100 Units/ML 10 ML Vial SUBCUT ONE (16:06)
[2024-05-02 16:19] LABS: CORONAVIRUS COVID-19 NAA NEGATIVE (NEGATIVE); INFLUENZA A NAA NEGATIVE (NEGATIVE); RESPIRATORY SYNCYTIAL VIR NAA NEGATIVE (NEGATIVE)
[2024-05-02] MEDS: Aspirin 81 MG Tab.Chew PO ONE ×2 (17:50→22:18)
[2024-05-02] MEDS: Sodium Chloride 0.9% 10 ML Syringe FLUSH PRN (18:24)
[2024-05-02] MEDS: metFORMIN 500 MG Tab PO ONE (18:48)
[2024-05-02] MEDS: Cephalexin 500 MG Cap PO ONE (18:49)
[2024-05-02 20:57] LABS: LACTIC ACID 1.3 mmol/L (0.4-2.0)
[2024-05-02] MEDS: Sodium Chloride 0.9% 1,000 ML IV ONE (22:18)
[2024-05-02] MEDS: hydrOXYzine HCl 50 MG Tab PO ONE (22:18)
[2024-05-02] MEDS: Heparin Sodium 5,000 Units/ML Vial IVPUSH ONE (23:16)
[2024-05-02] MEDS: Heparin Sodium/D5W 25,000 UNITS/500 ML BAG IV SCH (23:17)
[2024-05-02 23:37] LABS: INR 1.17; PROTHROMBIN TIME 12.3 SECONDS (9.7-12.0)
[2024-05-02 23:39] VITALS: BP 148/89; PULSE 97
[2024-05-02 23:39] LABS: PTT,PARTIAL THROMBOPLSTIN TIME 26.8 SECONDS (21.7-31.4)
[2024-05-03] MEDS ORDERED: Insulin NPH/Insulin Regular,Human 70-30 100 Units/ML 10 ML Vial SUBCUT SCH (06:00)
== END 2024-05-02 23:58 ==
LOC: JD.ED 11:29
DX: N30.00 Acute cystitis without hematuria (principal); I21.4 Non-ST elevation (NSTEMI) myocardial infarction; J44.9 Chronic obstructive pulmonary disease, unspecified; I50.9 Heart failure, unspecified; E78.00 Pure hypercholesterolemia, unspecified; E11.9 Type 2 diabetes mellitus without complications; E03.9 Hypothyroidism, unspecified; Z88.5 Allergy status to narcotic agent; Z88.6 Allergy status to analgesic agent; Z79.82 Long term (current) use of aspirin; Z79.899 Other long term (current) drug therapy; Z79.84 Long term (current) use of oral hypoglycemic drugs
CPT/HCPCS: 0241U; 36415; 71045; 80053; 80143; 80179; 80306; 80307; 81001; 82947; 83605; 83735; 83880; 84443; 84484; 85025; 85610; 85730; 87086; 93005; 96361; 96365; 96367; 96372; 99285; A9270; J0696; J1644; J1815; J3490; J7030

== ENCOUNTER 2024-05-06 00:40 | Emergency (ER) | payer MEDICARE, MEDICAID ==
[2024-05-06 03:42] LABS: BASOPHILS PERCENT AUTO 0.5 % (0.0-1.0); EOSINOPHILS ABSOLUTE AUTO 0.1 K/mm3 (0.0-0.4); EOSINOPHILS PERCENT AUTO 3.1 % (0.0-6.0); HEMATOCRIT 40.8 % (37.0-47.0); IMMATURE GRAN ABSOLUTE AUTO 0.02 K/mm3 (0.00-0.05); IMMATURE GRAN PERCENT AUTO 0.5 % (0.0-0.4); LYMPHOCYTES ABSOLUTE AUTO 0.8 K/mm3 (1.0-4.8); MEAN CORPUSCULAR HEMOGLOBIN 28.6 pg (28.0-32.0); MEAN CORPUSCULAR HGB CONC 31.9 g/dl (32.0-36.0); MEAN CORPUSCULAR VOLUME 89.9 fl (83.0-99.0); MONOCYTES ABSOLUTE AUTO 0.3 K/mm3 (0.0-0.8); MONOCYTES PERCENT AUTO 7.6 % (0.0-8.0); NEUTROPHILS PERCENT AUTO 70.3 % (41.0-71.0); PLATELET COUNT,PLT 103 K/mm3 (150-400); RED BLOOD CELL COUNT 4.54 M/mm3 (4.10-5.30); WHITE BLOOD CELL COUNT,WBC 4.22 K/mm3 (3.9-11.3)
[2024-05-06 04:08] LABS: BARBITURATE SCREEN,URINE NEGATIVE (CUTOFF=200); BENZODIAZEPINES SCREEN,URINE NEGATIVE (CUTOFF=150); BUPRENORPHINE SCREEN,URINE NEGATIVE (CUTOFF=10); METHADONE SCREEN, URINE NEGATIVE (CUTOFF=200); METHAMPHETAMINES SCREEN, URINE NEGATIVE (CUTOFF=500); OXYCODONE SCREEN,URINE NEGATIVE (CUT0FF=100); THC SCREEN,URINE 20 NG/ML NEGATIVE (CUTOFF=50)
[2024-05-06 04:11] LABS: AMPHETAMINES SCREEN, URINE NEGATIVE (CUTOFF=500)
[2024-05-06 04:12] LABS: A/G RATIO 0.7 (1-2); ALBUMIN 3.1 g/dl (3.4-5.0); ANION GAP 11.3 (5-15); BILIRUBIN TOTAL 0.6 mg/dL (0.2-1.0); BUN/CREATININE RATIO 16.7 (14-18); CREATININE 0.9 mg/dL (0.55-1.02); EST CRCL DRUG DOSING (CG) 55.33 mL/min; POTASSIUM,K 4.3 mEq/L (3.5-5.1); PROTEIN TOTAL,TP 7.9 g/dl (6.4-8.2); TSH 7.749 uIU/mL (0.358-3.74)
[2024-05-06] MEDS: Insulin Regular, Human 100 Units/ML 10 ML Vial SUBCUT ONE ×2 (06:25→16:30)
[2024-05-06 06:31] LABS: APPEARANCE,URINE CLEAR (Clear); BILIRUBIN,URINE NEGATIVE (Negative); COLOR,URINE LIGHT YELLOW (Yellow); GLUCOSE,URINE 2+ (Negative); KETONES,URINE TRACE (Negative); LEUKOCYTE ESTERASE,URINE NEGATIVE (Negative); NITRITE,URINE NEGATIVE (Negative); OCCULT BLOOD,URINE NEGATIVE (Negative); PROTEIN,URINE NEGATIVE (Negative)
[2024-05-06] MEDS: Sodium Chloride 0.9% 1,000 ML IV ONE (06:32)
[2024-05-06] MEDS: Lisinopril 5 MG Tab PO ONE (10:49)
[2024-05-06] MEDS: QUEtiapine 25 MG Tab PO ONE (10:50)
[2024-05-06] MEDS: traMADol 50 MG Tab PO ONE (11:03)
[2024-05-06] MEDS: Levofloxacin 500 MG Tab PO ONE (16:29)
[2024-05-06] MEDS: metFORMIN 500 MG Tab PO ONE (16:44)
[2024-05-06 16:45] VITALS: BP 144/81; PULSE 98
[2024-05-06] MEDS: Phenazopyridine 95 MG Tab PO ONE (17:04)
== END 2024-05-06 17:31 ==
LOC: JD.ED 00:40
DX: F29 Unspecified psychosis not due to a substance or known physiological condition (principal); E78.00 Pure hypercholesterolemia, unspecified; E66.9 Obesity, unspecified; E03.9 Hypothyroidism, unspecified; E11.9 Type 2 diabetes mellitus without complications; Z68.41 Body mass index [BMI] 40.0-44.9, adult; Z88.5 Allergy status to narcotic agent; Z88.8 Allergy status to other drugs, medicaments and biological substances; Z79.82 Long term (current) use of aspirin; Z79.890 Hormone replacement therapy; Z79.899 Other long term (current) drug therapy
CPT/HCPCS: 36415; 80053; 80143; 80179; 80306; 80307; 81003; 82947; 84443; 85025; 93005; 96360; 99285; A9270; J1815; J7030; 93010; 99284

== ENCOUNTER 2024-05-19 12:51 | Emergency (ER) | payer MEDICARE, MEDICAID ==
[2024-05-19] MEDS ORDERED: Sodium Chloride 0.9% 10 ML Syringe FLUSH PRN (13:12)
[2024-05-19 13:20] LABS: BASOPHILS PERCENT AUTO 0.6 % (0.0-1.0); EOSINOPHILS ABSOLUTE AUTO 0.1 K/mm3 (0.0-0.4); EOSINOPHILS PERCENT AUTO 1.5 % (0.0-6.0); HEMATOCRIT 41.3 % (37.0-47.0); HEMOGLOBIN 13.6 gm/dl (12.0-16.0); IMMATURE GRAN ABSOLUTE AUTO 0.02 K/mm3 (0.00-0.05); IMMATURE GRAN PERCENT AUTO 0.4 % (0.0-0.4); LYMPHOCYTES ABSOLUTE AUTO 0.8 K/mm3 (1.0-4.8); LYMPHOCYTES PERCENT AUTO 15.6 % (24.0-44.0); MEAN CORPUSCULAR HEMOGLOBIN 29.6 pg (28.0-32.0); MEAN CORPUSCULAR HGB CONC 32.9 g/dl (32.0-36.0); MEAN CORPUSCULAR VOLUME 89.8 fl (83.0-99.0); MEAN PLATELET VOLUME 11.8 fl (9.4-12.3); MONOCYTES ABSOLUTE AUTO 0.3 K/mm3 (0.0-0.8); NEUTROPHILS ABSOLUTE AUTO 3.7 K/mm3 (1.8-7.7); NEUTROPHILS PERCENT AUTO 75.9 % (41.0-71.0); PLATELET COUNT,PLT 132 K/mm3 (150-400); WHITE BLOOD CELL COUNT,WBC 4.81 K/mm3 (3.9-11.3)
[2024-05-19 14:07] LABS: A/G RATIO 0.6 (1-2); ALBUMIN 3.1 g/dl (3.4-5.0); ANION GAP 14.8 (5-15); BILIRUBIN TOTAL 0.6 mg/dL (0.2-1.0); BUN/CREATININE RATIO 17.1 (14-18); CALCIUM 9.3 mg/dL (8.5-10.1); CREATININE 0.7 mg/dL (0.55-1.02); EST CRCL DRUG DOSING (CG) 71.14 mL/min; MAGNESIUM 1.3 mg/dL (1.8-2.4); POTASSIUM,K 3.8 mEq/L (3.5-5.1); PROTEIN TOTAL,TP 8.1 g/dl (6.4-8.2); TSH 3.022 uIU/mL (0.358-3.74)
[2024-05-19] MEDS: Sodium Chloride 0.9% 1,000 ML IV ONE (14:49)
[2024-05-19] MEDS: Magnesium Oxide 400 MG Tab PO ONE (14:49)
[2024-05-19 16:58] LABS: APPEARANCE,URINE CLEAR (Clear); BILIRUBIN,URINE NEGATIVE (Negative); COLOR,URINE YELLOW (Yellow); GLUCOSE,URINE 1+ (Negative); KETONES,URINE TRACE (Negative); LEUKOCYTE ESTERASE,URINE TRACE (Negative); NITRITE,URINE NEGATIVE (Negative); OCCULT BLOOD,URINE NEGATIVE (Negative); PH,URINE 7.5 (5.0-8.0); PROTEIN,URINE NEGATIVE (Negative); UROBILINOGEN,URINE 0.2 (0.2-1.0)
[2024-05-19 17:01] LABS: BARBITURATE SCREEN,URINE NEGATIVE (CUTOFF=200); BENZODIAZEPINES SCREEN,URINE NEGATIVE (CUTOFF=150); BUPRENORPHINE SCREEN,URINE NEGATIVE (CUTOFF=10); METHADONE SCREEN, URINE NEGATIVE (CUTOFF=200); METHAMPHETAMINES SCREEN, URINE NEGATIVE (CUTOFF=500); OXYCODONE SCREEN,URINE NEGATIVE (CUT0FF=100); THC SCREEN,URINE 20 NG/ML NEGATIVE (CUTOFF=50)
[2024-05-19 17:15] LABS: AMPHETAMINES SCREEN, URINE NEGATIVE (CUTOFF=500)
[2024-05-19 17:37] LABS: BACTERIA,URINE FEW /hpf (FEW); MUCUS,URINE FEW /hpf (FEW); RBC,URINE 0-5 /hpf (0-5)
[2024-05-20] MEDS: Magnesium Sulfate/Water 2 GM/50 ML BAG IV ONE (00:19)
[2024-05-20 06:18] LABS: CORONAVIRUS COVID-19 NAA NEGATIVE (NEGATIVE); INFLUENZA A NAA NEGATIVE (NEGATIVE); RESPIRATORY SYNCYTIAL VIR NAA NEGATIVE (NEGATIVE)
[2024-05-20 21:27] VITALS: BP 161/86; PULSE 97
== END 2024-05-20 15:45 ==
LOC: JD.ED 12:51
DX: R44.0 Auditory hallucinations (principal); R44.1 Visual hallucinations; F60.0 Paranoid personality disorder; I50.9 Heart failure, unspecified; E78.00 Pure hypercholesterolemia, unspecified; J44.9 Chronic obstructive pulmonary disease, unspecified; E11.40 Type 2 diabetes mellitus with diabetic neuropathy, unspecified; E66.9 Obesity, unspecified; Z86.16 Personal history of COVID-19; Z68.39 Body mass index [BMI] 39.0-39.9, adult; E03.9 Hypothyroidism, unspecified; Z79.82 Long term (current) use of aspirin; Z79.84 Long term (current) use of oral hypoglycemic drugs; Z79.899 Other long term (current) drug therapy; Z88.5 Allergy status to narcotic agent; Z88.6 Allergy status to analgesic agent
CPT/HCPCS: 0241U; 36415; 80053; 80143; 80179; 80306; 80307; 81001; 83735; 84443; 85025; 87086; 93005; 96361; 96365; 96366; 99285; A9270; J3475; J7030; 93010

== ENCOUNTER 2024-07-03 08:27 | Emergency (ER) | payer MEDICARE, MEDICAID ==
[2024-07-03] MEDS: Meclizine 25 MG Tab PO ONE (09:12)
[2024-07-03] MEDS: Albuterol/Ipratropium 3.0-0.5 MG/3 ML Neb Soln NEB ONE (09:22)
[2024-07-03 09:34] LABS: BASOPHILS PERCENT AUTO 0.5 % (0.0-1.0); EOSINOPHILS ABSOLUTE AUTO 0.1 K/mm3 (0.0-0.4); EOSINOPHILS PERCENT AUTO 3.1 % (0.0-6.0); HEMATOCRIT 37.5 % (37.0-47.0); HEMOGLOBIN 11.8 gm/dl (12.0-16.0); IMMATURE GRAN ABSOLUTE AUTO 0.01 K/mm3 (0.00-0.05); IMMATURE GRAN PERCENT AUTO 0.2 % (0.0-0.4); LYMPHOCYTES ABSOLUTE AUTO 0.5 K/mm3 (1.0-4.8); LYMPHOCYTES PERCENT AUTO 11.9 % (24.0-44.0); MEAN CORPUSCULAR HEMOGLOBIN 28.6 pg (28.0-32.0); MEAN CORPUSCULAR HGB CONC 31.5 g/dl (32.0-36.0); MEAN CORPUSCULAR VOLUME 90.8 fl (83.0-99.0); MEAN PLATELET VOLUME 11.6 fl (9.4-12.3); MONOCYTES ABSOLUTE AUTO 0.3 K/mm3 (0.0-0.8); MONOCYTES PERCENT AUTO 8.2 % (0.0-8.0); NEUTROPHILS ABSOLUTE AUTO 3.1 K/mm3 (1.8-7.7); NEUTROPHILS PERCENT AUTO 76.1 % (41.0-71.0); PLATELET COUNT,PLT 149 K/mm3 (150-400); RED BLOOD CELL COUNT 4.13 M/mm3 (4.10-5.30); WHITE BLOOD CELL COUNT,WBC 4.13 K/mm3 (3.9-11.3)
[2024-07-03 10:08] LABS: A/G RATIO 0.5 (1-2); ALBUMIN 2.6 g/dl (3.4-5.0); ANION GAP 7.1 (5-15); BILIRUBIN TOTAL 0.4 mg/dL (0.2-1.0); BUN/CREATININE RATIO 27.8 (14-18); CALCIUM 8.4 mg/dL (8.5-10.1); CREATININE 0.9 mg/dL (0.55-1.02); EST CRCL DRUG DOSING (CG) 55.33 mL/min; MAGNESIUM 1.7 mg/dL (1.8-2.4); POTASSIUM,K 4.1 mEq/L (3.5-5.1); PROTEIN TOTAL,TP 7.6 g/dl (6.4-8.2)
[2024-07-03 11:18] VITALS: BP 125/70; PULSE 79
== END 2024-07-03 11:21 | disposition home or self-care (01) ==
LOC: JD.ED 08:27
DX: R42 Dizziness and giddiness (principal); I50.9 Heart failure, unspecified; J44.9 Chronic obstructive pulmonary disease, unspecified; M19.90 Unspecified osteoarthritis, unspecified site; E66.9 Obesity, unspecified; E11.9 Type 2 diabetes mellitus without complications; E03.9 Hypothyroidism, unspecified; Z68.41 Body mass index [BMI] 40.0-44.9, adult; Z86.16 Personal history of COVID-19; Z88.5 Allergy status to narcotic agent; Z88.6 Allergy status to analgesic agent
CPT/HCPCS: 36415; 70450; 71045; 80053; 82947; 83735; 83880; 84484; 85025; 93005; 94640; 99285; A9270; 93010; 99283; J7620-GY